=== PATIENT | female | born 1945 | race Caucasian/White ===

== ENCOUNTER → 2016-06-30 | Outpatient (CLI) | payer MEDICARE, OTHER ==
[~2016-06-30] MED LIST: AMOX875T PO; ASPI1TAB PO; CALCTAB68 PO; CENTTAB47 PO; GLUC15002 PO; IBUP600T26 PO; KETO2CR EXT; LEVO50TA45 PO; OMEP40CA2 PO; OPCOSOL OU; PROBCAP4 PO
[2016-06-30 18:10] LABS: BASO % 0.8 % (0.0-1.0); EOS # 0.1 K/mm3 (0.0-0.50); LARGE UNSTAINED CELL # 0.1 K/mm3 (0.0-0.4); LARGE UNSTAINED CELL % 2.9 % (0.0-4.0); LYMPH # 1.1 K/mm3 (1.5-4.5); LYMPH % 23.2 % (24.0-44.0); MEAN CORPUSCULAR HEMOGLOBIN 32.3 pg (27.0-33.0); MEAN CORPUSCULAR HGB CONC 32.9 g/dl (32.0-36.5); MEAN CORPUSCULAR VOLUME 98.2 fl (80.0-96.0); MONO # 0.3 K/mm3 (0.0-0.8); MONO % 7.5 % (0.0-5.0); NEUTROPHILS # 2.6 K/mm3 (1.8-7.7); NEUTROPHILS % 63.6 % (36.0-66.0); PLATELET COUNT, AUTOMATED 199 k/mm3 (150-450); RED CELL DISTRIBUTION WIDTH 13.9 % (11.5-14.5); WHITE BLOOD COUNT 4.1 K/mm3 (4.0-10.0)
[2016-06-30 18:59] LABS: ALBUMIN 3.6 GM/DL (3.2-5.2); ALBUMIN/GLOBULIN RATIO 1.09 (1.00-1.93); ALKALINE PHOSPHATASE 98 U/L (45-117); ALT/SGPT 32 U/L (12-78); ANION GAP 10 MEQ/L (8-16); AST/SGOT 32 U/L (15-37); BILIRUBIN,TOTAL 0.7 MG/DL (0.2-1.0); BLOOD UREA NITROGEN 19 MG/DL (7-18); CALCIUM LEVEL 8.5 MG/DL (8.8-10.2); CARBON DIOXIDE LEVEL 29 MEQ/L (21-32); CHLORIDE LEVEL 103 MEQ/L (98-107); CHOLESTEROL LEVEL 207 MG/DL (<200); GLOMERULAR FILTRATION RATE > 60.0 (>39); GLUCOSE, FASTING 92 MG/DL (83-110); POTASSIUM SERUM 4.3 MEQ/L (3.5-5.1); SODIUM LEVEL 142 MEQ/L (136-145); TOTAL PROTEIN 6.9 GM/DL (6.4-8.2); TRIGLYCERIDES LEVEL 64 MG/DL (<150)
== END ==
LOC: M WUC 10:49
PROVIDERS: ATTEND Family Medicine
DX: D72.819 Decreased white blood cell count, unspecified (principal); E55.9 Vitamin D deficiency, unspecified; R73.01 Impaired fasting glucose; E78.2 Mixed hyperlipidemia

== ENCOUNTER → 2016-07-27 | Outpatient (CLI) | payer MEDICARE, OTHER ==
--- NOTE | 2016-07-27 13:44 | REP ---
CHEST X-RAY: Two views. HISTORY: Pneumonia. Comparison chest x-ray June 08, 2016. FINDINGS: There are granulomatous calcific residuals in the right lung and right hilus unchanged. Right hemidiaphragm is slightly elevated also unchanged. The lungs are otherwise well inflated and clear. The pleural angles are sharp. Heart is not enlarged. No significant bony abnormality is seen. IMPRESSION: No active disease. Signed by Edson Smith MD 07/27/2016 03:17 P
== END ==
LOC: M WUC 10:24
PROVIDERS: ATTEND Physician Assistant Medical
DX: J18.9 Pneumonia, unspecified organism (principal)
CPT/HCPCS: 71020; G0463

== ENCOUNTER → 2016-07-29 | Outpatient (REF) | payer MEDICARE, OTHER | LOC: M SFHCPLAZ 11:30 | PROVIDERS: ATTEND Physician Assistant Medical | DX: J40 Bronchitis, not specified as acute or chronic (principal) ==

== ENCOUNTER → 2016-10-03 | Outpatient (REF) | payer MEDICARE, OTHER | LOC: M LAB REF 13:26 | PROVIDERS: ATTEND Physician Assistant Medical | DX: J40 Bronchitis, not specified as acute or chronic (principal) ==

== ENCOUNTER → 2016-10-06 | Outpatient (CLI) | payer MEDICARE, OTHER ==
[2016-10-06 14:55] LABS: MEAN CORPUSCULAR HEMOGLOBIN 31.6 pg (27.0-33.0); MEAN CORPUSCULAR HGB CONC 33.1 g/dl (32.0-36.5); MEAN CORPUSCULAR VOLUME 95.6 fl (80.0-96.0); RED CELL DISTRIBUTION WIDTH 13.1 % (11.5-14.5); WHITE BLOOD COUNT 3.4 K/mm3 (4.0-10.0)
[2016-10-06 15:10] LABS: ALBUMIN 3.7 GM/DL (3.2-5.2); ALBUMIN/GLOBULIN RATIO 1.09 (1.00-1.93); ALKALINE PHOSPHATASE 103 U/L (45-117); ALT/SGPT 26 U/L (12-78); ANION GAP 8 MEQ/L (8-16); AST/SGOT 20 U/L (15-37); BILIRUBIN,TOTAL 0.8 MG/DL (0.2-1.0); BLOOD UREA NITROGEN 18 MG/DL (7-18); CALCIUM LEVEL 9.2 MG/DL (8.8-10.2); CARBON DIOXIDE LEVEL 29 MEQ/L (21-32); CHLORIDE LEVEL 105 MEQ/L (98-107); CREATININE FOR GFR 0.99 MG/DL (0.55-1.02); GLOMERULAR FILTRATION RATE 58.5 (>39); GLUCOSE, FASTING 97 MG/DL (83-110); POTASSIUM SERUM 4.7 MEQ/L (3.5-5.1); SODIUM LEVEL 142 MEQ/L (136-145); TOTAL PROTEIN 7.1 GM/DL (6.4-8.2)
[2016-10-07 11:36] LABS: ALBUMIN 4.14 GM/DL (3.29-5.55); ALBUMIN % 58.3 % (55.8-66.1); GAMMA GLOBULIN % 18.5 % (11.1-18.8)
== END ==
LOC: M WUC 10:14
PROVIDERS: ATTEND Family Medicine
DX: D47.2 Monoclonal gammopathy (principal); R73.01 Impaired fasting glucose

== ENCOUNTER → 2016-10-09 | Outpatient (CLI) | payer MEDICARE, OTHER ==
[~2016-10-09] MED LIST changes: +ISOVUE-370 76% 100ML VIAL (Q9967) As Ordered ONE
--- NOTE | 2016-10-09 09:06 | REP ---
CT CHEST WITH CONTRAST: 10/09/2016. Clinical history: Bronchitis, cough. Possible bronchiectasis. Comparison: CT 06/14/2007, chest x-ray 07/27/2016. Technique. The patient received a bolus of 75 ml Isovue 370, scanning through the chest with coronal and sagittal reconstructions. Findings: The lung freitas are well inflated. There is very minimal linear subsegmental atelectasis in the inferior lingular segment adjacent to the left heart border and its epicardial fat pad anterior inferior left chest. Lungs are well inflated. In the left lower lobe, there are a few subsegmental bronchi and segmental bronchi with the bronchial segments equal in size to the adjacent pulmonary artery segments that may reflect some cylindrical bronchiectasis. These are scattered. No saccular bronchiectasis. There is no pulmonary nodule, pleural thickening, calcified pleural plaque, acute infiltrate or parenchymal mass. No pneumothorax or pneumomediastinum. Heart is not enlarged and no pericardial thickening or effusion. The aorta is without aneurysm or dissection. The main, right and left pulmonary arteries in the mediastinum are without filling defects. There are a few calcified nodes in the subcarinal, AP window and right hilar region. These are unchanged. No pathologic sized mediastinal or hilar mass. The axillary and supraclavicular regions are without mass. In the upper abdomen, visualized portions of the kidneys were unremarkable. Adrenal glands normal. Pancreas intact. Gallbladder shows no calcified stone or mass. There is no splenomegaly with multiple calcified stone. Small granulomas disease noted. No definite hiatal hernia. The liver is not enlarged and shows no focal abnormality. Bone windows show the sternum, manubrium, medial clavicles, glenohumeral joints, humeral heads, scapula, ribs and thoracic spine without acute finding. There are marginal osteophytes and some degenerative disc changes at multiple thoracic endplates. Impression: 1. There is some very mild cervical bronchiectasis scattered in the lung freitas without consolidation, atelectasis, pleural effusion, pleural based plaque, mass or pulmonary nodules. 2. No cardiomegaly, pericardial thickening or effusion. 3. The aorta without aneurysm or dissection. Central pulmonary arteries in the mediastinum without filling defect. No adenopathy or mass in the mediastinum. Old granulomatous disease. Signed by Ever Osorio MD 10/09/2016 02:59 P
== END ==
LOC: M RAD 07:37
PROVIDERS: ATTEND Physician Assistant Medical
DX: J40 Bronchitis, not specified as acute or chronic (principal); J47.9 Bronchiectasis, uncomplicated
CPT/HCPCS: 71260; Q9967

== ENCOUNTER → 2016-12-21 | Outpatient (CLI) | payer MEDICARE, OTHER ==
[~2016-12-21] MED LIST changes: +ALBU17IN2 INH; +CALC600T57 PO; +GLUC1CAP10 PO; +IBUP-1022 PO; -IBUP600T26 PO; -ISOVUE-370 76% 100ML VIAL (Q9967) As Ordered ONE; +KETO2AER2 EX; +NABU750T PO; +NORCOTAB PO; +NYST10CR EXT; +VITA200015 PO
--- NOTE | 2016-12-21 16:57 | REP ---
Digital diagnostic bilateral mammography with CAD: History: Screening study. Positively history of breast carcinoma. Comparison mammography is reviewed from December 20, 2015, December 19, 2014, and December 18, 2013. December 16, 2012 prior mammography is also reviewed. Mammographic findings: There is a possible developing density at approximate 12 o'clock in the right breast which merits further evaluation. This is seen with confidence on the CC view where there appears to be some spiculation. This is less confidently identified on the MLO view. It is approximately 14 mm in greatest diameter. The remainder of the right breast and the entirety of the left breast are otherwise unremarkable and unchanged. There is an upper outer quadrant lymph node on the left which is unchanged. Impression: BIRADS category zero incomplete breast imaging. Possible developing density 12 o'clock right breast. Diagnostic right breast mammography and focused right breast sonography recommended. This mammogram was interpreted with the aid of an FDA-approved computer-aided detection system. The patient states she/he had a clinical breast exam in November 2016 . The patient letter being requested is m# [id number]. Signed by Edson Smith MD 12/21/2016 04:49 P
== END ==
LOC: M WHC 12:44
PROVIDERS: ATTEND Family Medicine
DX: Z01.419 Encounter for gynecological examination (general) (routine) without abnormal findings (principal); Z12.31 Encounter for screening mammogram for malignant neoplasm of breast; R92.8 Other abnormal and inconclusive findings on diagnostic imaging of breast; Z12.12 Encounter for screening for malignant neoplasm of rectum
CPT/HCPCS: 82270; G0101; G0202

== ENCOUNTER → 2016-12-25 | Outpatient (CLI) | payer MEDICARE, OTHER ==
--- NOTE | 2016-12-25 17:36 | REP ---
Digital diagnostic unilateral right breast mammography with CAD and focused right breast sonography: History: Screening mammography December 21, 2016 is BIRADS category 0 incomplete for a possible developing density at approximately 12 o'clock. Diagnostic imaging was recommended. Mammographic findings: Magnified focal spot compression CC, MLO and true ML views of the right breast were obtained. A somewhat spiculated nodular area is again seen at 12 o'clock in the right breast confirming the screening mammographic impression. This has incompletely defined margins. It is considered mammographically suspicious. Sonographic findings: The right breast is examined sonographically from 11 o'clock to 1 o'clock. At 12 o'clock, a hypoechoic mass is seen with posterior acoustic shadowing measuring 0.9 x 0.7 x 1.1 cm. There is arterial Doppler flow internally. The mass is 5.1 cm from the nipple. Impression: BIRADS category 5 highly suspicious right breast imaging. Ultrasound-guided needle biopsy with marker clip placement recommended. ACR 5 BI-RADS/ACR category 5 mammogram. Highly suggestive of malignancy - appropriate action should be taken. Requires biopsy or surgical treatment. This mammogram was interpreted with the aid of an FDA-approved computer-aided detection system. The patient states she/he had a clinical breast exam in November 2016. The patient letter being requested is M4. Signed by Edson Smith MD 12/30/2016 10:08 A
== END ==
LOC: M RAD 13:23
PROVIDERS: ATTEND Family Medicine
DX: R92.8 Other abnormal and inconclusive findings on diagnostic imaging of breast (principal)
CPT/HCPCS: 76642; G0206

== ENCOUNTER → 2017-01-13 | Outpatient (CLI) | payer MEDICARE, OTHER ==
[~2017-01-13] MED LIST changes: +LIDOCAINE 1% MDV 20ML VIAL As Ordered ONE
--- NOTE | 2017-01-13 13:32 | REP ---
DIGITAL DIAGNOSTIC UNILATERAL RIGHT BREAST MAMMOGRAPHY WITH CAD: TWO VIEWS. HISTORY: Marker clip placement views. Patient status post ultrasound-guided needle biopsy procedure. Comparison mammography, December 25, 2016, December 21, 2016, and December 20, 2015. FINDINGS: CC and true MLO views of the right breast demonstrate that the marker clip is in good position at the level of the biopsy target spiculated density in the 12-o'clock position in the right breast. No hematoma is identified. IMPRESSION: Marker clip in good position. Signed by Edson Smith MD 01/13/2017 02:31 P
--- NOTE | 2017-01-13 16:42 | REP ---
ULTRASOUND GUIDED RIGHT BREAST BIOPSY: The procedure was performed under the direct supervision of Dr. Smith. The patient has a history of a hypoechoic mass in the 12 o'clock position of the left breast measuring 0.9 x 0.7 x 1.1 cm on a previous ultrasound dated 12/25/2016. The risks and benefits of the procedure were explained to the patient and informed consent was obtained. The right breast mass was localized using ultrasound guidance. The skin was prepped and draped in a sterile fashion. 1% Lidocaine was used as a local anesthetic. Using ultrasound guidance a 13-gauge suction assisted Mammotome needle was inserted and 6 core biopsy samples were obtained. A marker clip was placed at the biopsy site. The patient tolerated the procedure well and there were no immediate complications. After the appropriate amount of monitored convalescence the patient was discharged from the department. Reviewed by MARYCHUY Escalera 01/14/2017 04:24 PEdited and Signed by Edson Smith MD 01/14/2017 04:43 P
== END ==
LOC: M RADPRO 09:41
PROVIDERS: ATTEND Surgery
DX: C50.919 Malignant neoplasm of unspecified site of unspecified female breast (principal); Z88.5 Allergy status to narcotic agent; Z79.82 Long term (current) use of aspirin; Z79.899 Other long term (current) drug therapy
CPT/HCPCS: 19083; 88305; G0206

== ENCOUNTER 2017-01-28 10:21 | Day surgery (SDC) | payer MEDICARE, OTHER ==
[~2017-01-28] VITALS: Ht 158.8 cm; Wt 107.0 kg
[~2017-01-28 10:21] MED LIST changes: -LIDOCAINE 1% MDV 20ML VIAL As Ordered ONE; -NORCOTAB PO
[2017-01-28] MEDS ORDERED: LR 1,000 ML IV SCH ×3 (10:45→18:30)
[2017-01-28] MEDS ORDERED: LIDOCAINE 5% (LIDODERM) PATCH As Ordered ONE (11:19)
[2017-01-28] MEDS ORDERED: LIDOCAINE 5% (LIDODERM) PATCH TD ONE (12:00)
[2017-01-28] MEDS ORDERED: LIDOCAINE 1% MDV 20ML VIAL As Ordered ONE (12:20)
[2017-01-28] MEDS ORDERED: fentaNYL 100 MCG/2 ML INJECTION (J3010) As Ordered ONE ×2 (13:45→18:58)
[2017-01-28] MEDS ORDERED: PROPOFOL 200 MG/20 ML VIAL As Ordered ONE (13:45)
[2017-01-28] MEDS ORDERED: LIDOCAINE 2% INJ 100 MG/5 ML SDV (FOR ANES.) As Ordered ONE (13:45)
[2017-01-28] MEDS ORDERED: MIDAZOLAM INJ 2 MG/2 ML VIAL (J2250) As Ordered ONE (13:45)
[2017-01-28] MEDS ORDERED: ONDANSETRON 4MG/2ML VIAL (J2405) As Ordered ONE ×2 (13:45→15:44)
[2017-01-28] MEDS ORDERED: METHYLENE BLUE 0.5% (5MG/ML) 10 ML AMP (PROVAYBLUE)(Q9968 PER 1MG) As Ordered ONE (14:30)
[2017-01-28] MEDS ORDERED: ePHEDrine SULFATE 25 MG/5 ML(5MG/ML) SYRINGE As Ordered ONE (15:44)
[2017-01-28] MEDS ORDERED: METOCLOPRAMIDE INJ 10MG/2ML VIAL (J2765) As Ordered ONE (15:44)
[2017-01-28] MEDS ORDERED: BUPIVACAINE HCL 0.25% 30 ML VIAL As Ordered ONE (17:29)
[2017-01-28] MEDS ORDERED: BUPIVACAINE HCL 0.5% 30 ML VIAL As Ordered ONE (17:29)
--- NOTE | 2017-01-28 17:53 | REP ---
RIGHT BREAST LOCALIZATION: The procedure was performed under the direct supervision of Dr. Osorio. The patient has a history of a hypoechoic mass in the 12 o'clock position of the right breast measuring 0.9 x 0.7 x 1.1 cm on a previous ultrasound dated 12/25/2016. The patient had an ultrasound guided right breast biopsy performed on 01/13/2017. A marker clip was placed at the biopsy site. The risks and benefits of the procedure were explained to the patient and informed consent was obtained. A cranial caudal approach was utilized. The marker clip was localized using mammographic guidance. The skin was prepped and draped in a sterile fashion. 1% Xylocaine was used as a local anesthetic. A 7.5 cm Alder needle wire system was inserted. Followup mammographic images demonstrate good needle placement. The patient tolerated the procedure well and there were no immediate complications. Reviewed by MARYCHUY Escalera 01/29/2017 03:29 PEdited and Signed by Ever Osorio MD 01/29/2017 10:09 P
--- NOTE | 2017-01-28 18:29 | ECGEPIP ---
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 No significant change from 12/24/14 Electronically Signed On 01-28-2017 18:29:18 EDT by Kevin Tang
[2017-01-28] MEDS ORDERED: ACETAMINOPHEN TAB 650MG DOSE (2X325MG) PO PRN (18:30)
[2017-01-28] MEDS ORDERED: fentaNYL 100 MCG/2 ML INJECTION (J3010) IV PRN (18:30)
[2017-01-28] MEDS ORDERED: NORCO, ANEXSIA 5/325MG TABLET (HYDROcodone/ACETAMINOPHEN) PO PRN (18:30)
[2017-01-28] MEDS ORDERED: ONDANSETRON 4MG/2ML VIAL (J2405) IV PRN (18:30)
--- NOTE | 2017-01-28 18:48 | REP ---
RIGHT BREAST LYMPHOSCINTIGRAPHY: The procedure was performed under the direct supervision of Dr. Osorio. The images were reviewed with Dr. Osorio. The risks and benefits of the procedure were explained to the patient and informed was obtained. Using topical anesthetic and sterile technique 1.013 millicuries of Technetium 99 filtered sulfur colloid was injected subdermally in 8 fractioned periareolar injections. Images obtained 1 hour after injection show tracer uptake in the upper inner quadrant of the right breast. There is no appreciable uptake seen in the axillary region. IMPRESSION: Right breast lymphoscintigraphy. There is tracer uptake seen in upper inner quadrant of the right breast. There is no appreciable uptake seen in the axillary region. Reviewed by MARYCHUY Escalera 01/29/2017 03:32 PEdited and Signed by Ever Osorio MD 01/29/2017 10:09 P
[2017-01-28] MEDS ORDERED: NORCOTAB PO (18:49)
[2017-01-28 20:20] VITALS: BP 135/61
--- NOTE | 2017-01-29 08:18 | REP ---
Right breast specimen radiograph: 01/28/2017. Two images of the right breast biopsy specimen from needle localization excisional biopsy are reviewed. Hook wire is present on the image as is the stereotactic clip from last month's needle core biopsy. Tissue occludes the targeted lesion in its entirety. There are some coarse benign calcifications and arterial calcifications present separate from the lesion. Impression: 1. Status post excisional biopsy with the specimen radiograph demonstrating the targeted lesion and adjacent core biopsy localization clip present in the specimen. Pathologic analysis pending. Signed by Ever Osorio MD 01/29/2017 08:10 A
--- NOTE | 2017-02-01 11:58 | RO ---
DATE OF PROCEDURE: 01/28/2017 PREOPERATIVE DIAGNOSIS: Infiltrating ductal carcinoma of right breast. POSTOPERATIVE DIAGNOSIS: Infiltrating ductal carcinoma of right breast. PROCEDURE PERFORMED: 1. Right breast/axilla sentinel lymph node biopsy. 2. Right partial mastectomy with needle localization. 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 INDICATIONS FOR PROCEDURE: The patient is a 71-year-old who had undergone a mammogram and was found to have a density in the superior mid aspect of the right breast. Ultrasound showed a small solid-appearing nodule in this area and an ultrasound-guided biopsy revealed infiltrating ductal carcinoma. The patient is now for a sentinel lymph node biopsy as well as a right partial mastectomy (lumpectomy). OPERATIVE PROCEDURE: The patient underwent lymphoscintigraphy in the x-ray department. She also had a localizing wire placed into the area of her cancer utilizing ultrasound techniques. She was then moved to the operating room. The patient was placed under general endotracheal anesthesia. After alcohol skin prep, several aliquots of methylene blue were injected into the breast, into the subcutaneous tissues and also into the area of her primary tumor. A total of approximately 4-5 mL of the methylene blue solution was injected. The Neoprobe was used to inspect the right axilla and a site of gamma uptake was identified. The patients right breast, chest wall, axilla and right upper extremity were then prepped and draped in a sterile fashion. Initial attention was turned to the sentinel lymph node biopsy. With the breast retracted to the left, the axilla was inspected and the site of maximum gamma counts was marked with a skin marker. An approximately 3 to 3-1/2 cm transverse skin incision was made. This was deepened through the subcutaneous tissues using the cautery. The axillary fascia was opened and the dissection was carried deeper guided by the Neoprobe. With careful dissection, using a combination of blunt, sharp, and cautery dissection, a small node approximately a centimeter in diameter was identified and this was dissected with some attached fibrofatty tissue. Examination with the Neoprobe gave a 10-second count of 2348. This was labeled sentinel node #1. Reinspection with the Neoprobe identified another area of marked increased gamma counts near the area of the first node. Additional dissection was performed and a second piece of fibrofatty tissue containing a small node was identified. 10-second gamma count was 8655. This was labeled sentinel node #2 and these were both sent for frozen section. The wound was inspected and hemostasis was excellent. A closure of the axillary fascia was performed with two simple sutures of #3-0 chromic. The subcutaneous tissues were approximated and the skin edges were closed with a running subcuticular #4-0 Vicryl. At about this point, the pathologist contacted me by telephone and indicated that the nodes did not show any obvious malignancy. Attention was then turned to the partial mastectomy. The guidewire was identified entering the upper midportion of the right breast and directed inferiorly toward the areola. The wire entered the breast perhaps 5-6 cm above the edge of the areola. I made a slightly curved transverse incision, perhaps 6 cm in length, about 2 cm inferior to the point of entry of the guidewire. This was deepened into the subcutaneous tissues. The skin and subcutaneous tissues were elevated off of the underlying breast superiorly up to slightly above the entry point of the guidewire. The dissection was then carried inferiorly to the edge of the areola and then slightly inferior to this. Then the tissues inferiorly were divided at about the edge of the areola transversely down toward the pectoral fascia. The tip of the guidewire was identified at the inferior edge of this tissue. Then using medial and lateral dissection, a broad block of breast tissue was excised extending up toward the needle entry point at which point the superior part of the dissection was completed and this block of tissue was removed. This measured approximately 9 cm in length x 7 cm in width x 4 cm in thickness. The portion of tissue excised was somewhat larger as the nodule was not clearly palpable and I felt it was best to avoid getting into the cancer if avoidable. This piece of tissue was then marked with the Vector margin marker system. A specimen mammogram was obtained using the [facility] ([place]) device. The specimen appeared to contain the nodule along the course of the guidewire passing through the specimen. The specimen was then sent for permanent pathology. The wound was inspected for hemostasis which was found to be excellent. I elevated the superior and lateral aspects of the breast off of the underlying pectoral muscle to allow the breast tissue to be approximated. The breast tissue was then approximated with interrupted simple sutures of #2-0 Vicryl. The skin was elevated slightly further inferiorly to allow a more natural appearance. Subcutaneous tissues were closed with buried Vicryl and chromic and the skin edges were approximated with a running subcuticular suture of #4-0 Vicryl and Steri-Strips. Steri-Strips were applied to the axillary incision as well. Light dressings were applied. A bulky bandage was applied over the breast and this was positioned to try to contour the breast tissue slightly. This was all held in place with tape. The patient tolerated the procedure well without apparent complication. She was awakened in the operating room, extubated and moved to the recovery room in stable condition. ELIDA
== END 2017-01-28 20:37 | disposition home or self-care (01) ==
LOC: M SDC 10:21
PROVIDERS: ATTEND Surgery
DX: D05.11 Intraductal carcinoma in situ of right breast (principal); M17.0 Bilateral primary osteoarthritis of knee; K21.9 Gastro-esophageal reflux disease without esophagitis; E66.01 Morbid (severe) obesity due to excess calories; E78.5 Hyperlipidemia, unspecified; R73.01 Impaired fasting glucose; J47.9 Bronchiectasis, uncomplicated; D47.2 Monoclonal gammopathy; M47.812 Spondylosis without myelopathy or radiculopathy, cervical region; M51.36 Other intervertebral disc degeneration, lumbar region; M50.022 Cervical disc disorder at C5-C6 level with myelopathy; M48.00 Spinal stenosis, site unspecified; Z87.442 Personal history of urinary calculi; E03.9 Hypothyroidism, unspecified; R06.83 Snoring; Z79.899 Other long term (current) drug therapy; Z79.82 Long term (current) use of aspirin; Z88.5 Allergy status to narcotic agent
CPT/HCPCS: 19301; 38525; 76098; 78195; 88305; 88331; 93005; A9541; J2250; J2405; J2765; J3010; Q9968

== ENCOUNTER → 2017-03-23 | Outpatient (CLI) | payer MEDICARE, OTHER ==
[~2017-03-23] MED LIST changes: +NORCOTAB PO
--- NOTE | 2017-03-26 08:20 | RADONC ---
RADIATION ONCOLOGY CONSULTATION NOTE DATE: 03/23/2017 CHART NUMBER: [id number]. DIAGNOSIS: Right breast cancer. STAGE: IA, [id number]. ECOG PERFORMANCE STATUS: Zero. CONSULTATION NOTE: Mrs. Jaimes is a very pleasant, 72-year-old white female with the diagnosis of a stage IA, [id number], well-differentiated infiltrating ductal carcinoma of the right breast who is presenting to us status post lumpectomy and sentinel lymph node biopsy for consideration of postoperative radiation therapy for conservative breast management. HISTORY OF PRESENT ILLNESS: The patient was in the usual state of health until routine mammogram was done on 12/22/2015, which revealed a possible developing density in the 12-o'clock position of the right breast. Subsequent ultrasound showed a highly suspicious area in the 12-o'clock position. On 01/29/2017, the patient underwent lumpectomy and sentinel lymph node biopsy. Pathology revealed a 1.5 cm well-differentiated invasive ductal carcinoma of the right breast. There was no lymph vascular invasion. All surgical margins were negative with the closest margin measuring 1.1 cm away. The tumor was estrogen receptor and progesterone receptor strongly positive and HER2/nikki negative. Two sentinel lymph nodes were sampled and were negative for malignancy. Oncotype testing was done and the recurrent score result was 9 for a low risk. The patient is now presenting to us for discussion of external beam radiation therapy as a therapeutic option for conservative breast management. PAST MEDICAL HISTORY: The patient's past medical history is positive for urinary infections, arthritis, bronchitis and cataracts. She has hypothyroidism. ALLERGIES: The patient is allergic to CODEINE and BAND-AID TAPE. SOCIAL HISTORY: The patient does not smoke cigarettes. She drinks alcohol socially. FAMILY HISTORY: The patient's family history is positive for a maternal grandmother with breast cancer and a paternal grandmother with colon cancer. REVIEW OF SYSTEMS: The patient's review of systems is positive for some shortness of breath and some decreased energy, but is otherwise noncontributory. Denies nausea, vomiting, fevers, chills, night sweats, diplopia, headaches, anxiety or depression, anorexia, weight loss, visual disturbances, chest pain, urinary or bowel difficulties, bone pain, or neurological problems. PHYSICAL EXAMINATION: The patient is a well-developed, well-nourished, 72-year-old white female in no acute distress. HEENT exam is normocephalic, atraumatic. Extraocular movements are intact. There is no palpable cervical, supraclavicular, infraclavicular, axillary, or inguinal lymphadenopathy present. Lungs are clear to auscultation and percussion. Heart has a regular rate and rhythm. Abdomen is benign with no hepatosplenomegaly, masses, or tenderness. Breast examination reveals no masses or discharge bilaterally. Skeletal examination reveals no tenderness to pressure or percussion of the bony skeleton. Extremities reveal no clubbing, cyanosis, or edema. Neurologic exam is grossly intact, as is the remainder of the physical examination. ASSESSMENT: Clearly the patient is a candidate for external beam radiation therapy and I have so informed her. I have discussed with the patient in detail the potential benefits as well as possible acute and chronic sequelae of external beam radiation therapy. We discussed logistics of treatment planning, simulation subsequent fractionated daily radiation treatments. I have scheduled the patient for the next available simulation slot and radiation treatments will begin subsequently. She is scheduled to see her medical oncologist on to discuss systemic therapy. At this time, I do not believe that Dr. Saldaña will be recommending systemic therapy, but we will await initiation of radiation until that final decision has been made. Of course, I will defer all systemic therapy decisions to the expertise of Dr. Saldaña in whom I have great thang. cc: Dr. Tj Avila cc: Abeba Saldaña MD, FACP Wiliam Sevilla MD
--- NOTE | 2017-04-28 07:56 | RADONC ---
RADIATION ONCOLOGY PROGRESS NOTE DATE: 04/26/2017 CHART NUMBER: [id number] Ms. Jaimes is presently at a dose of 2160 cGy to her right breast and is tolerating treatments quite well at this point with no complaints related to her radiation therapy. She is having no breast or bone pain. The patient's review of systems is noncontributory. She denies nausea, vomiting, fevers, chills, night sweats, diplopia, headaches, anxiety or depression, anorexia, weight loss, visual disturbances, chest pain, urinary or bowel difficulties, bone pain, or neurological problems. PHYSICAL EXAMINATION: The patient's skin is in good condition with no evidence of moist or dry desquamation. The remainder of physical exam remains unchanged. Ms. Jaimes is tolerating treatments quite well and radiation will continue as scheduled.
== END ==
LOC: M ONCR 09:00
PROVIDERS: ATTEND Radiology Radiation Oncology
DX: C50.911 Malignant neoplasm of unspecified site of right female breast (principal)

== ENCOUNTER → 2017-03-29 | Outpatient (CLI) | payer MEDICARE, OTHER ==
[2017-03-29 12:07] LABS: MEAN CORPUSCULAR HEMOGLOBIN 32.1 pg (27.0-33.0); MEAN CORPUSCULAR HGB CONC 33.4 g/dl (32.0-36.5); MEAN CORPUSCULAR VOLUME 96.1 fl (80.0-96.0); RED CELL DISTRIBUTION WIDTH 13.2 % (11.5-14.5); WHITE BLOOD COUNT 3.5 10^3/uL (4.0-10.0)
[2017-03-29 13:12] LABS: CHOLESTEROL LEVEL 217 MG/DL (<200); FREE T4 1.71 NG/DL (0.76-1.46); TRIGLYCERIDES LEVEL 61 MG/DL (<150)
[2017-03-29 13:17] LABS: EOSINOPHILS 1 % (0-5)
[2017-04-01 00:07] LABS: FREE KAPPA LIGHT CHAINS SERUM 17.7 mg/L (3.3-19.4); FREE LAMBDA LIGHT CHAINS SERUM 13.8 mg/L (5.7-26.3); KAPPA/LAMBDA RATIO SERUM 1.28 (0.26-1.65)
== END ==
LOC: M LAB 11:21
PROVIDERS: ATTEND Family Medicine
DX: D72.819 Decreased white blood cell count, unspecified (principal); E78.2 Mixed hyperlipidemia; D47.2 Monoclonal gammopathy; E03.9 Hypothyroidism, unspecified; R73.01 Impaired fasting glucose

== ENCOUNTER → 2017-03-29 | Outpatient (CLI) | payer MEDICARE, OTHER | LOC: M RAD 10:19 | PROVIDERS: ATTEND Radiology Radiation Oncology | DX: C50.911 Malignant neoplasm of unspecified site of right female breast (principal) ==

== ENCOUNTER 2017-04-28 11:34 | Outpatient (RCR) | payer MEDICARE, OTHER ==
--- NOTE | 2017-05-05 06:39 | RADONC ---
RADIATION ONCOLOGY PROGRESS NOTE DATE: 05/03/2017 CHART NUMBER: [id number] Ms. Jaimes is presently at a dose of 3060 cGy to her right breast and is tolerating treatments quite well at this point with no complaints related to her radiation therapy. She is having no breast or bone pain. REVIEW OF SYSTEMS: The patient's review of systems is noncontributory. Denies nausea, vomiting, fevers, chills, night sweats, diplopia, headaches, anxiety or depression, anorexia, weight loss, visual disturbances, chest pain, urinary or bowel difficulties, bone pain, or neurological problems. PHYSICAL EXAMINATION: The patient's skin is in good condition with no evidence of moist or dry desquamation. The remainder of her physical exam remains unchanged. Ms. Jaimes is tolerating treatments quite well and radiation will continue as scheduled.
--- NOTE | 2017-05-10 09:19 | RADONC ---
RADIATION ONCOLOGY PROGRESS NOTE DATE: 05/10/2017 Ms. Jaimes is presently at a dose of 3960 cGy to her right breast and is tolerating treatments quite well at this point with no significant complaints related to her radiation therapy other than some tenderness in the axillary region. The patient's review of systems is positive for some skin tenderness as well as some swelling in the axillary area. It is otherwise noncontributory. She denies nausea, vomiting, fevers, chills, night sweats, diplopia, headaches, anxiety or depression, anorexia, weight loss, visual disturbances, chest pain, urinary or bowel difficulties, bone pain, or neurological problems. PHYSICAL EXAMINATION: The patient's skin overall is in good condition with no evidence of moist or dry desquamation. There is erythema and tanning present. This is more so in the inframammary and axillary areas. The patient's physical exam is otherwise unchanged. Ms. Jaimes is tolerating treatments quite well and radiation will continue as scheduled.
--- NOTE | 2017-05-12 09:00 | RADONC ---
RADIATION ONCOLOGY SIMULATION NOTE DATE: 05/12/2017 CHART NUMBER: [id number] Ms. Jaimes was taken to the linear accelerator today for clinical setup of her right breast electron beam boost field. Setup was accomplished without difficulty or discomfort. Radiation treatment planning is underway and radiation treatments will begin subsequently. An immobilization device was created and will be used throughout the course of treatment. I was physically present throughout the course of electron setup simulation.
--- NOTE | 2017-05-17 15:56 | RADONC ---
RADIATION ONCOLOGY PROGRESS NOTE DATE: 05/17/2017 CHART NUMBER: [id number] Ms. Jaimes is presently at a dose of 4680 cGy to her right breast and is tolerating treatments quite well at this point with no significant complaints related to her radiation therapy other than tenderness in the axillary region and around the nipple. REVIEW OF SYSTEMS: The patient's review of systems is positive for tenderness in those areas but is otherwise noncontributory. She denies nausea, vomiting, fevers, chills, night sweats, diplopia, headaches, anxiety or depression, anorexia, weight loss, visual disturbances, chest pain, urinary or bowel difficulties, bone pain, or neurological problems. PHYSICAL EXAMINATION: The patient's skin shows erythema and tanning present, more so in the axillary region. There is no evidence of moist or dry desquamation. The remainder of her physical exam remains unchanged. Ms. Jaimes is tolerating treatments quite well and radiation will continue as scheduled.
[2017-05-24] MEDS ORDERED: SILV40CR EXT (09:07)
--- NOTE | 2017-05-24 09:45 | RADONC ---
RADIATION ONCOLOGY PROGRESS NOTE DATE: 05/24/2017 CHART NUMBER: [id number] Ms. Jaimes is presently at a dose of 5260 cGy to her right breast primary site boost and is tolerating treatments quite well at this point. She is complaining of pain in the inframammary area. REVIEW OF SYSTEMS: The patient's review of systems is positive for inframammary discomfort but is otherwise noncontributory. Denies nausea, vomiting, fevers, chills, night sweats, diplopia, headaches, anxiety or depression, anorexia, weight loss, visual disturbances, chest pain, urinary or bowel difficulties, bone pain, or neurological problems. PHYSICAL EXAMINATION: The patient's skin in the inframammary region shows some moist desquamation. The remainder of her physical exam remains unchanged. I have sent in a prescription for Silvadene for the skin in the inframammary region which was last treated on May 18, last Wednesday. In the meantime, the area presently being treated is free of any significant issues and radiation will continue as scheduled.
== END 2017-05-27 ==
LOC: M ONCR 11:34
PROVIDERS: ATTEND Radiology Radiation Oncology
DX: C50.811 Malignant neoplasm of overlapping sites of right female breast (principal)

== ENCOUNTER 2017-05-28 11:06 | Outpatient (RCR) | payer MEDICARE, OTHER | END 2017-06-27 | LOC: M ONCR 11:06 | DX: C50.811 Malignant neoplasm of overlapping sites of right female breast (principal) | CPT/HCPCS: 77412 ==

== ENCOUNTER → 2017-06-29 | Outpatient (CLI) | payer MEDICARE, OTHER | LOC: M RAD 13:20 | DX: R92.1 Mammographic calcification found on diagnostic imaging of breast (principal) | CPT/HCPCS: 77065 ==

== ENCOUNTER → 2017-07-07 | Outpatient (CLI) | payer MEDICARE, OTHER | LOC: M ONCR 11:05 | DX: Z08 Encounter for follow-up examination after completed treatment for malignant neoplasm (principal); Z85.3 Personal history of malignant neoplasm of breast | CPT/HCPCS: G0463 ==

== ENCOUNTER → 2017-08-17 | Outpatient (CLI) | payer MEDICARE, OTHER ==
[2017-08-17 17:33] LABS: BASO % 0.3 % (0.0-1.0); EOS % 1.3 % (0.0-3.0); HEMOGLOBIN 13.4 g/dl (12.0-16.0); LYMPH # 0.6 10^3/uL (1.5-4.5); LYMPH % 18.8 % (24.0-44.0); MEAN CORPUSCULAR HEMOGLOBIN 31.3 pg (27.0-33.0); MEAN CORPUSCULAR HGB CONC 32.7 g/dl (32.0-36.5); MEAN CORPUSCULAR VOLUME 95.8 fl (80.0-96.0); MONO # 0.3 10^3/uL (0.0-0.8); MONO % 10.2 % (0.0-5.0); NEUTROPHILS # 2.1 10^3/uL (1.8-7.7); NEUTROPHILS % 69.4 % (36.0-66.0); PLATELET COUNT, AUTOMATED 214 10^3/uL (150-450); RED BLOOD COUNT 4.28 10^6/uL (4.00-5.40); RED CELL DISTRIBUTION WIDTH 13.4 % (11.5-14.5)
[2017-08-17 17:53] LABS: PTH INTACT 34.5 PG/ML (18.5-88.0)
[2017-08-17 17:56] LABS: ALBUMIN 3.7 GM/DL (3.2-5.2); ALBUMIN/GLOBULIN RATIO 1.12 (1.00-1.93); ALKALINE PHOSPHATASE 120 U/L (45-117); ALT/SGPT 29 U/L (12-78); ANION GAP 8 MEQ/L (8-16); AST/SGOT 24 U/L (7-37); BILIRUBIN,TOTAL 0.7 MG/DL (0.2-1.0); BLOOD UREA NITROGEN 27 MG/DL (7-18); CARBON DIOXIDE LEVEL 29 MEQ/L (21-32); CHLORIDE LEVEL 106 MEQ/L (98-107); CREATININE FOR GFR 0.86 MG/DL (0.55-1.30); GLOMERULAR FILTRATION RATE > 60.0 (>39); GLUCOSE, FASTING 102 MG/DL (70-100); POTASSIUM SERUM 4.3 MEQ/L (3.5-5.1); SODIUM LEVEL 143 MEQ/L (136-145)
[2017-08-17 20:22] LABS: TOTAL 25(OH) VITAMIN D 49.8 NG/ML (30.0-100.0)
[2017-08-19 14:16] LABS: ALBUMIN % 58.6 % (55.8-66.1); ALPHA-1-GLOBULIN % 4.2 % (2.9-4.9)
[2017-08-19 14:17] LABS: ALPHA-1-GLOBULINS 0.29 GM/DL (0.17-0.41); BETA-1-GLOBULINS 0.35 GM/DL (0.28-0.60); BETA-2-GLOBULINS 0.31 GM/DL (0.19-0.55); BETA-2-GLOBULINS % 4.4 % (3.2-6.5); GAMMA GLOBULIN % 17.8 % (11.1-18.8); GAMMA GLOBULINS 1.25 GM/DL (0.65-1.58)
[2017-08-21 00:06] LABS: INSULIN LEVEL 14.4 uIU/mL (2.6-24.9)
[2017-08-21 00:06] LABS: SERUM VISCOSITY 1.7 rel.saline (1.6-1.9)
== END ==
LOC: M WUC 10:26
DX: I10 Essential (primary) hypertension (principal); R73.01 Impaired fasting glucose; D47.2 Monoclonal gammopathy; E55.9 Vitamin D deficiency, unspecified
CPT/HCPCS: 83525

== ENCOUNTER → 2017-12-21 | Outpatient (REF) | payer MEDICARE, OTHER | LOC: M SFHCWAGY 13:32 | DX: Z12.4 Encounter for screening for malignant neoplasm of cervix (principal); N95.2 Postmenopausal atrophic vaginitis; Z12.12 Encounter for screening for malignant neoplasm of rectum | CPT/HCPCS: G0123 ==

== ENCOUNTER → 2017-12-27 | Outpatient (CLI) | payer MEDICARE, OTHER | LOC: M RAD 10:40 | DX: Z12.31 Encounter for screening mammogram for malignant neoplasm of breast (principal); C50.912 Malignant neoplasm of unspecified site of left female breast; Z79.810 Long term (current) use of selective estrogen receptor modulators (SERMs); Z80.3 Family history of malignant neoplasm of breast | CPT/HCPCS: 77067 ==

== ENCOUNTER → 2018-01-04 | Outpatient (CLI) | payer MEDICARE, OTHER ==
[2018-01-04 13:41] LABS: BLOOD UREA NITROGEN 24 MG/DL (7-18); CHLORIDE LEVEL 104 MEQ/L (98-107); CREATININE FOR GFR 0.89 MG/DL (0.55-1.30); GLOMERULAR FILTRATION RATE > 60.0 (>39); GLUCOSE, FASTING 82 MG/DL (70-100); POTASSIUM SERUM 4.2 MEQ/L (3.5-5.1); SODIUM LEVEL 142 MEQ/L (136-145)
[2018-01-04 13:42] LABS: ALBUMIN 3.6 GM/DL (3.2-5.2); ALBUMIN/GLOBULIN RATIO 1.03 (1.00-1.93); ALKALINE PHOSPHATASE 122 U/L (45-117); ALT/SGPT 30 U/L (12-78); ANION GAP 6 MEQ/L (8-16); AST/SGOT 22 U/L (7-37); BILIRUBIN,TOTAL 0.8 MG/DL (0.2-1.0); CARBON DIOXIDE LEVEL 32 MEQ/L (21-32); FREE T4 1.61 NG/DL (0.76-1.46); TOTAL PROTEIN 7.1 GM/DL (6.4-8.2)
[2018-01-04 13:52] LABS: ESTIMATED AVERAGE GLUCOSE 114 MG/DL (60-110); HEMOGLOBIN A1c 5.6 %
[2018-01-06 08:34] LABS: FREE KAPPA LIGHT CHAINS SERUM 18.4 mg/L (3.3-19.4); FREE LAMBDA LIGHT CHAINS SERUM 12.6 mg/L (5.7-26.3); FREE LAMBDA LIGHT CHAINS URINE 0.55 mg/L (0.24-6.66); KAPPA/LAMBDA RATIO SERUM 1.46 (0.26-1.65); KAPPA/LAMBDA RATIO URINE 25.64 (2.04-10.37)
== END ==
LOC: M WUC 09:50
DX: D47.2 Monoclonal gammopathy (principal); R73.01 Impaired fasting glucose; E03.9 Hypothyroidism, unspecified
CPT/HCPCS: 80053

== ENCOUNTER → 2018-01-05 | Outpatient (CLI) | payer MEDICARE, OTHER | LOC: M ONCR 10:45 | DX: Z08 Encounter for follow-up examination after completed treatment for malignant neoplasm (principal); Z85.3 Personal history of malignant neoplasm of breast | CPT/HCPCS: G0463 ==

== ENCOUNTER → 2018-01-17 | Outpatient (REF) | payer MEDICARE, OTHER | LOC: M LAB REF 16:48 | DX: M54.9 Dorsalgia, unspecified (principal) ==

== ENCOUNTER 2018-01-18 08:43 | Emergency (ER) | payer MEDICARE, OTHER ==
[2018-01-18 10:07] LABS: HEMATOCRIT 39.4 % (36.0-47.0); HEMOGLOBIN 13.3 g/dl (12.0-15.5); IMMATURE GRANULOCYTE % 0.3 % (0-3.0); LYMPH % 2.1 % (24.0-44.0); MEAN CORPUSCULAR HGB CONC 33.8 g/dl (32.0-36.5); MEAN CORPUSCULAR VOLUME 94.9 fl (80.0-96.0); MONO # 0.3 10^3/uL (0.0-0.8); MONO % 3.9 % (0.0-5.0); NEUTROPHILS # 7.2 10^3/uL (1.8-7.7); NEUTROPHILS % 93.7 % (36.0-66.0); PLATELET COUNT, AUTOMATED 141 10^3/uL (150-450); RED BLOOD COUNT 4.15 10^6/uL (4.00-5.40); RED CELL DISTRIBUTION WIDTH 13.3 % (11.5-14.5); WHITE BLOOD COUNT 7.7 10^3/uL (4.0-10.0)
[2018-01-18] MEDS: ONDANSETRON 4MG/2ML VIAL (J2405) IV (10:10)
[2018-01-18 10:11] LABS: LYMPH # 0.2 10^3/uL (1.5-4.5); POSITIVE DIFF POS FLAG
[2018-01-18] MEDS: MORPHINE 4 MG/ML 1ML VIAL/SYRINGE (J2270) IV (10:11)
[2018-01-18 10:35] LABS: ALBUMIN 3.4 GM/DL (3.2-5.2); ALBUMIN/GLOBULIN RATIO 0.87 (1.00-1.93); ALKALINE PHOSPHATASE 130 U/L (45-117); ALT/SGPT 60 U/L (12-78); ANION GAP 9 MEQ/L (8-16); AST/SGOT 50 U/L (7-37); BLOOD UREA NITROGEN 19 MG/DL (7-18); CALCIUM LEVEL 8.9 MG/DL (8.8-10.2); CARBON DIOXIDE LEVEL 26 MEQ/L (21-32); CHLORIDE LEVEL 103 MEQ/L (98-107); CREATININE FOR GFR 0.95 MG/DL (0.55-1.30); GLOMERULAR FILTRATION RATE > 60.0 (>39); GLUCOSE, FASTING 124 MG/DL (70-100); SODIUM LEVEL 138 MEQ/L (136-145); TOTAL PROTEIN 7.3 GM/DL (6.4-8.2)
[2018-01-18] MEDS: MORPHINE 2 MG/ML 1ML SYRINGE (J2270) IV (11:11)
[2018-01-18 12:09] LABS: KETONE, URINE AUTO RFX 1+ mg/dL (NEGATIVE); LEUKOCYTE ESTERASE UR AUTO RFX NEGATIVE (NEGATIVE); MUCUS, URINE RFX SMALL (NEGATIVE); NITRITE, URINE AUTO RFX NEGATIVE (NEGATIVE); RBC, URINE AUTO RFX 4 /HPF (0-3); SPECIFIC GRAVITY UR AUTO RFX 1.021 (1.002-1.035); SQUAM EPITHELIAL CELL UR AURFX 0 /HPF (0-6); WBC, URINE AUTO RFX 2 /HPF (0-3)
[2018-01-18] MEDS: MOXIFLOXACIN 400 MG TAB PO (12:54)
[2018-01-18] MEDS: ACETAMINOPHEN 325 MG TAB PO (13:09)
== END 2018-01-18 13:36 | disposition home or self-care (01) ==
LOC: M ED 08:43
DX: K44.9 Diaphragmatic hernia without obstruction or gangrene (principal); K57.30 Diverticulosis of large intestine without perforation or abscess without bleeding; J98.11 Atelectasis; R91.8 Other nonspecific abnormal finding of lung field; M47.817 Spondylosis without myelopathy or radiculopathy, lumbosacral region; M43.16 Spondylolisthesis, lumbar region; R31.9 Hematuria, unspecified; E03.9 Hypothyroidism, unspecified; K21.9 Gastro-esophageal reflux disease without esophagitis; Z85.3 Personal history of malignant neoplasm of breast; Z88.5 Allergy status to narcotic agent; Z79.890 Hormone replacement therapy; Z79.899 Other long term (current) drug therapy; Z79.52 Long term (current) use of systemic steroids; Z87.01 Personal history of pneumonia (recurrent); Z98.890 Other specified postprocedural states

== ENCOUNTER 2018-01-20 13:31 | Inpatient (IN) | payer MEDICARE, OTHER ==
[~2018-01-20 13:31] MED LIST changes: +ACETAMINOPHEN 500 MG TAB PO; -ALBU17IN2 INH; -AMOX875T PO; -ASPI1TAB PO; -CALC600T57 PO; -CALCTAB68 PO; -CENTTAB47 PO; -GLUC15002 PO; -GLUC1CAP10 PO; -IBUP-1022 PO; -KETO2AER2 EX; -KETO2CR EXT; -LEVO50TA45 PO; -NABU750T PO; -NORCOTAB PO; -NYST10CR EXT; -OMEP40CA2 PO; +ONDANSETRON 4MG/2ML VIAL (J2405) IV; -OPCOSOL OU; -PROBCAP4 PO; -VITA200015 PO
[2018-01-20] MEDS ORDERED: CYCLOBENZAPRINE 10 MG TAB PO (13:45)
[2018-01-20 14:23] LABS: BASO % 0.2 % (0.0-1.0); HEMATOCRIT 38.7 % (36.0-47.0); HEMOGLOBIN 13.1 g/dl (12.0-15.5); IMMATURE GRANULOCYTE % 1.5 % (0-3.0); LYMPH # 0.5 10^3/uL (1.5-4.5); LYMPH % 5.4 % (24.0-44.0); MEAN CORPUSCULAR HEMOGLOBIN 32.1 pg (27.0-33.0); MEAN CORPUSCULAR HGB CONC 33.9 g/dl (32.0-36.5); MEAN CORPUSCULAR VOLUME 94.9 fl (80.0-96.0); MONO # 0.7 10^3/uL (0.0-0.8); MONO % 7.8 % (0.0-5.0); NEUTROPHILS # 7.2 10^3/uL (1.8-7.7); NEUTROPHILS % 85.1 % (36.0-66.0); PLATELET COUNT, AUTOMATED 155 10^3/uL (150-450); RED BLOOD COUNT 4.08 10^6/uL (4.00-5.40); WHITE BLOOD COUNT 8.5 10^3/uL (4.0-10.0)
[2018-01-20 14:31] LABS: INR 1.04; PROTHROMBIN TIME 13.7 SECONDS (12.1-14.4)
[2018-01-20 14:53] LABS: ALBUMIN 2.9 GM/DL (3.2-5.2); ALBUMIN/GLOBULIN RATIO 0.58 (1.00-1.93); ALKALINE PHOSPHATASE 145 U/L (45-117); ALT/SGPT 55 U/L (12-78); ANION GAP 9 MEQ/L (8-16); AST/SGOT 54 U/L (7-37); BLOOD UREA NITROGEN 20 MG/DL (7-18); CALCIUM LEVEL 9.1 MG/DL (8.8-10.2); CARBON DIOXIDE LEVEL 25 MEQ/L (21-32); CHLORIDE LEVEL 102 MEQ/L (98-107); CREATININE FOR GFR 0.93 MG/DL (0.55-1.30); GLOMERULAR FILTRATION RATE > 60.0 (>39); GLUCOSE, FASTING 129 MG/DL (70-100); POTASSIUM SERUM 4.2 MEQ/L (3.5-5.1); SODIUM LEVEL 136 MEQ/L (136-145); TOTAL PROTEIN 7.9 GM/DL (6.4-8.2)
[2018-01-20] MEDS ORDERED: cefTRIAXone SOD 2 GM in D5W MINI-BAG PLUS 50 ML IV (15:00)
[2018-01-20 15:01] LABS: ERYTHROCYTE SEDIMENTATION RATE 63 mm/hr (0-30)
[2018-01-20] MEDS ORDERED: PROHANCE 279.3MG/ML 5ML VIAL (A9576) As Ordered (15:20)
[2018-01-20] MEDS ORDERED: PROHANCE 279.3MG/ML 15ML VIAL (A9576) As Ordered (15:21)
[2018-01-20] MEDS ORDERED: VANCOMYCIN HCL 1,000 MG, VIAL MATE ADAPTER 1 EACH in D5W 250 ML IV (16:00)
[2018-01-20] MEDS: ENOXAPARIN 40 MG/0.4 ML SYRINGE (J1650) SC (18:42)
[2018-01-20] MEDS: cefTRIAXone SOD 2 GM in D5W MINI-BAG PLUS 50 ML IV (20:08)
[2018-01-20] MEDS: NORCO, ANEXSIA 5/325MG TABLET (HYDROcodone/ACETAMINOPHEN) PO (20:09)
[2018-01-20] MEDS: LETROZOLE 2.5 MG TAB PO (21:55)
[2018-01-20] MEDS: VANCOMYCIN HCL 1,000 MG, VIAL MATE ADAPTER 1 EACH in D5W 250 ML IV ×2 (21:55→22:53)
[2018-01-21] MEDS: NORCO, ANEXSIA 5/325MG TABLET (HYDROcodone/ACETAMINOPHEN) PO ×5 (01:15→20:00)
[2018-01-21 06:14] LABS: BASO % 0.1 % (0.0-1.0); EOS % 0.1 % (0.0-3.0); HEMATOCRIT 32.5 % (36.0-47.0); IMMATURE GRANULOCYTE % 1.5 % (0-3.0); LYMPH # 0.6 10^3/uL (1.5-4.5); LYMPH % 8.9 % (24.0-44.0); MEAN CORPUSCULAR HEMOGLOBIN 32.2 pg (27.0-33.0); MEAN CORPUSCULAR HGB CONC 34.2 g/dl (32.0-36.5); MEAN CORPUSCULAR VOLUME 94.2 fl (80.0-96.0); MONO # 0.9 10^3/uL (0.0-0.8); MONO % 13.1 % (0.0-5.0); NEUTROPHILS # 5.5 10^3/uL (1.8-7.7); NEUTROPHILS % 76.3 % (36.0-66.0); PLATELET COUNT, AUTOMATED 142 10^3/uL (150-450); RED BLOOD COUNT 3.45 10^6/uL (4.00-5.40); WHITE BLOOD COUNT 7.2 10^3/uL (4.0-10.0)
[2018-01-21 06:23] LABS: HEMOGLOBIN 11.1 g/dl (12.0-15.5)
[2018-01-21] MEDS: LEVOTHYROXINE 50MCG TABLET (0.05MG) PO (06:35)
[2018-01-21 06:38] LABS: ALBUMIN 2.3 GM/DL (3.2-5.2); ALBUMIN/GLOBULIN RATIO 0.58 (1.00-1.93); ALKALINE PHOSPHATASE 134 U/L (45-117); ALT/SGPT 60 U/L (12-78); ANION GAP 6 MEQ/L (8-16); AST/SGOT 61 U/L (7-37); BILIRUBIN,TOTAL 0.6 MG/DL (0.2-1.0); BLOOD UREA NITROGEN 19 MG/DL (7-18); CALCIUM LEVEL 8.3 MG/DL (8.8-10.2); CARBON DIOXIDE LEVEL 29 MEQ/L (21-32); CHLORIDE LEVEL 103 MEQ/L (98-107); CREATININE FOR GFR 0.89 MG/DL (0.55-1.30); GLOMERULAR FILTRATION RATE > 60.0 (>39); GLUCOSE, FASTING 116 MG/DL (70-100); SODIUM LEVEL 138 MEQ/L (136-145); TOTAL PROTEIN 6.3 GM/DL (6.4-8.2)
[2018-01-21] MEDS: ENOXAPARIN 40 MG/0.4 ML SYRINGE (J1650) SC (08:39)
[2018-01-21] MEDS: OMEPRAZOLE 20 MG CAP PO (08:39)
[2018-01-21] MEDS: cefTRIAXone SOD 2 GM in D5W MINI-BAG PLUS 50 ML IV ×2 (08:39→19:59)
[2018-01-21] MEDS: VANCOMYCIN HCL 1,000 MG, VIAL MATE ADAPTER 1 EACH in D5W 250 ML IV ×2 (09:25→21:09)
[2018-01-21] MEDS: LETROZOLE 2.5 MG TAB PO (20:01)
[2018-01-21] MEDS: PREGABALIN 50 MG CAP (LYRICA) PO (20:01)
[2018-01-22] MEDS: DICLOFENAC EPOLAMINE 1.3 % PATCH TOP ×3 (00:19→20:22)
[2018-01-22] MEDS: NORCO, ANEXSIA 5/325MG TABLET (HYDROcodone/ACETAMINOPHEN) PO ×4 (04:19→20:23)
[2018-01-22 05:22] LABS: BASO % 0.2 % (0.0-1.0); EOS % 0.3 % (0.0-3.0); HEMATOCRIT 33.9 % (36.0-47.0); HEMOGLOBIN 11.6 g/dl (12.0-15.5); IMMATURE GRANULOCYTE % 3.6 % (0-3.0); LYMPH # 0.8 10^3/uL (1.5-4.5); LYMPH % 9.1 % (24.0-44.0); MEAN CORPUSCULAR HEMOGLOBIN 31.7 pg (27.0-33.0); MEAN CORPUSCULAR HGB CONC 34.2 g/dl (32.0-36.5); MEAN CORPUSCULAR VOLUME 92.6 fl (80.0-96.0); MONO % 11.7 % (0.0-5.0); NEUTROPHILS # 6.7 10^3/uL (1.8-7.7); NEUTROPHILS % 75.1 % (36.0-66.0); PLATELET COUNT, AUTOMATED 172 10^3/uL (150-450); RED BLOOD COUNT 3.66 10^6/uL (4.00-5.40); RED CELL DISTRIBUTION WIDTH 13.8 % (11.5-14.5); WHITE BLOOD COUNT 8.9 10^3/uL (4.0-10.0)
[2018-01-22] MEDS: LEVOTHYROXINE 50MCG TABLET (0.05MG) PO (05:24)
[2018-01-22 05:45] LABS: ALBUMIN 2.2 GM/DL (3.2-5.2); ALBUMIN/GLOBULIN RATIO 0.59 (1.00-1.93); ALKALINE PHOSPHATASE 188 U/L (45-117); ALT/SGPT 98 U/L (12-78); ANION GAP 7 MEQ/L (8-16); AST/SGOT 93 U/L (7-37); BILIRUBIN,TOTAL 0.7 MG/DL (0.2-1.0); BLOOD UREA NITROGEN 13 MG/DL (7-18); CALCIUM LEVEL 7.9 MG/DL (8.8-10.2); CARBON DIOXIDE LEVEL 27 MEQ/L (21-32); CHLORIDE LEVEL 102 MEQ/L (98-107); CREATININE FOR GFR 0.69 MG/DL (0.55-1.30); GLOMERULAR FILTRATION RATE > 60.0 (>39); GLUCOSE, FASTING 123 MG/DL (70-100); POTASSIUM SERUM 3.9 MEQ/L (3.5-5.1); SODIUM LEVEL 136 MEQ/L (136-145); TOTAL PROTEIN 5.9 GM/DL (6.4-8.2)
[2018-01-22 05:52] LABS: ERYTHROCYTE SEDIMENTATION RATE 61 mm/hr (0-30)
[2018-01-22] MEDS: cefTRIAXone SOD 2 GM in D5W MINI-BAG PLUS 50 ML IV ×2 (08:19→19:25)
[2018-01-22 09:00] LABS: VANCOMYCIN LEVEL TROUGH 8.8 UG/ML (10.0-20.0)
[2018-01-22] MEDS: PREGABALIN 50 MG CAP (LYRICA) PO ×2 (10:21→20:22)
[2018-01-22] MEDS: OMEPRAZOLE 20 MG CAP PO (10:21)
[2018-01-22] MEDS: ENOXAPARIN 40 MG/0.4 ML SYRINGE (J1650) SC (10:22)
[2018-01-22] MEDS: VANCOMYCIN HCL 1,000 MG, VIAL MATE ADAPTER 1 EACH in D5W 250 ML IV (10:23)
[2018-01-22] MEDS: MIRALAX *UNIT DOSE* 17GM PACKET PO (13:06)
[2018-01-22] MEDS: LETROZOLE 2.5 MG TAB PO (20:22)
[2018-01-23] MEDS: NORCO, ANEXSIA 5/325MG TABLET (HYDROcodone/ACETAMINOPHEN) PO ×5 (03:22→22:56)
[2018-01-23] MEDS: NYSTATIN 100,000 UNITS/GM TOPICAL PWD 15 GM TOP ×2 (03:23→08:42)
[2018-01-23 06:01] LABS: HEMATOCRIT 33.2 % (36.0-47.0); HEMOGLOBIN 11.4 g/dl (12.0-15.5); MEAN CORPUSCULAR HEMOGLOBIN 32.1 pg (27.0-33.0); MEAN CORPUSCULAR HGB CONC 34.3 g/dl (32.0-36.5); MEAN CORPUSCULAR VOLUME 93.5 fl (80.0-96.0); PLATELET COUNT, AUTOMATED 223 10^3/uL (150-450); RED BLOOD COUNT 3.55 10^6/uL (4.00-5.40); RED CELL DISTRIBUTION WIDTH 14.1 % (11.5-14.5); WHITE BLOOD COUNT 9.3 10^3/uL (4.0-10.0)
[2018-01-23 06:07] LABS: ADD MANUAL DIFFER YES; DIFF SLIDE NUMBER 26; POS COUNT POS FLAG; POSITIVE MORPH POS FLAG
[2018-01-23] MEDS: LEVOTHYROXINE 50MCG TABLET (0.05MG) PO (06:15)
[2018-01-23 06:26] LABS: ALBUMIN/GLOBULIN RATIO 0.44 (1.00-1.93); ALKALINE PHOSPHATASE 220 U/L (45-117); ALT/SGPT 116 U/L (12-78); ANION GAP 8 MEQ/L (8-16); AST/SGOT 96 U/L (7-37); BILIRUBIN,TOTAL 0.8 MG/DL (0.2-1.0); BLOOD UREA NITROGEN 12 MG/DL (7-18); CALCIUM LEVEL 8.1 MG/DL (8.8-10.2); CARBON DIOXIDE LEVEL 28 MEQ/L (21-32); CHLORIDE LEVEL 101 MEQ/L (98-107); CREATININE FOR GFR 0.58 MG/DL (0.55-1.30); GLOMERULAR FILTRATION RATE > 60.0 (>39); GLUCOSE, FASTING 124 MG/DL (70-100); POTASSIUM SERUM 3.8 MEQ/L (3.5-5.1); SODIUM LEVEL 137 MEQ/L (136-145); TOTAL PROTEIN 6.5 GM/DL (6.4-8.2)
[2018-01-23 06:46] LABS: ATYPICAL LYMPH 2 % (0-5); LYMPHOCYTES 18 % (16-52); METAMYELOCYTES 2 % (0-0); MYELOCYTES 3 % (0-0); NEUTROPHILS 75 % (35-75)
[2018-01-23 06:47] LABS: ANISOCYTOSIS 1+; PLATELET ESTIMATE NORMAL (NORMAL); TOXIC GRANULATION 1+
[2018-01-23] MEDS: ENOXAPARIN 40 MG/0.4 ML SYRINGE (J1650) SC (08:40)
[2018-01-23] MEDS: PREGABALIN 50 MG CAP (LYRICA) PO ×2 (08:41→21:31)
[2018-01-23] MEDS: OMEPRAZOLE 20 MG CAP PO (08:41)
[2018-01-23] MEDS: DICLOFENAC EPOLAMINE 1.3 % PATCH TOP ×2 (08:41→21:31)
[2018-01-23] MEDS: cefTRIAXone SOD 2 GM in D5W MINI-BAG PLUS 50 ML IV ×2 (08:41→21:28)
[2018-01-23] MEDS: DOCUSATE SODIUM 100 MG CAP PO ×2 (08:56→21:31)
[2018-01-23] MEDS: LETROZOLE 2.5 MG TAB PO (21:28)
[2018-01-24] MEDS: NYSTATIN 100,000 UNITS/GM TOPICAL PWD 15 GM TOP (01:00)
[2018-01-24 05:38] LABS: BASO % 0.3 % (0.0-1.0); EOS # 0.1 10^3/uL (0.0-0.50); EOS % 0.6 % (0.0-3.0); HEMATOCRIT 34.4 % (36.0-47.0); HEMOGLOBIN 11.7 g/dl (12.0-15.5); IMMATURE GRANULOCYTE % 4.5 % (0-3.0); LYMPH # 0.7 10^3/uL (1.5-4.5); LYMPH % 7.3 % (24.0-44.0); MEAN CORPUSCULAR HEMOGLOBIN 31.9 pg (27.0-33.0); MEAN CORPUSCULAR VOLUME 93.7 fl (80.0-96.0); MONO % 9.9 % (0.0-5.0); NEUTROPHILS # 7.7 10^3/uL (1.8-7.7); NEUTROPHILS % 77.4 % (36.0-66.0); PLATELET COUNT, AUTOMATED 264 10^3/uL (150-450); RED BLOOD COUNT 3.67 10^6/uL (4.00-5.40); RED CELL DISTRIBUTION WIDTH 14.2 % (11.5-14.5); WHITE BLOOD COUNT 9.9 10^3/uL (4.0-10.0)
[2018-01-24] MEDS: NORCO, ANEXSIA 5/325MG TABLET (HYDROcodone/ACETAMINOPHEN) PO ×3 (05:54→23:32)
[2018-01-24] MEDS: LEVOTHYROXINE 50MCG TABLET (0.05MG) PO (05:54)
[2018-01-24 05:56] LABS: ALBUMIN/GLOBULIN RATIO 0.44 (1.00-1.93); ALKALINE PHOSPHATASE 232 U/L (45-117); ALT/SGPT 124 U/L (12-78); ANION GAP 7 MEQ/L (8-16); AST/SGOT 95 U/L (7-37); BILIRUBIN,TOTAL 0.7 MG/DL (0.2-1.0); BLOOD UREA NITROGEN 10 MG/DL (7-18); CALCIUM LEVEL 8.2 MG/DL (8.8-10.2); CARBON DIOXIDE LEVEL 30 MEQ/L (21-32); CHLORIDE LEVEL 99 MEQ/L (98-107); CREATININE FOR GFR 0.64 MG/DL (0.55-1.30); GLOMERULAR FILTRATION RATE > 60.0 (>39); GLUCOSE, FASTING 118 MG/DL (70-100); POTASSIUM SERUM 3.9 MEQ/L (3.5-5.1); SODIUM LEVEL 136 MEQ/L (136-145); TOTAL PROTEIN 6.5 GM/DL (6.4-8.2)
[2018-01-24] MEDS: OMEPRAZOLE 20 MG CAP PO (08:13)
[2018-01-24] MEDS: ENOXAPARIN 40 MG/0.4 ML SYRINGE (J1650) SC (08:14)
[2018-01-24] MEDS: PREGABALIN 50 MG CAP (LYRICA) PO ×2 (08:14→23:31)
[2018-01-24] MEDS: cefTRIAXone SOD 2 GM in D5W MINI-BAG PLUS 50 ML IV (08:15)
[2018-01-24] MEDS: DICLOFENAC EPOLAMINE 1.3 % PATCH TOP ×2 (08:15→23:12)
[2018-01-24 13:19] LABS: FERRITIN 975 NG/ML (8-252); RHEUMATOID FACTOR QUANT < 10.0 IU/ML (<15.0); URIC ACID 2.3 MG/DL (2.6-6.0)
[2018-01-24 13:19] LABS: GAMMA GLUTAMYLTRANSPEPTIDASE 369 U/L (5-55)
[2018-01-24 15:40] LABS: APPEARANCE, BODY FLUID CLOUDY (CLEAR); SOURCE, BODY FLUID RT KNEE; SYNOVIAL FLUID COLOR YELLOW (YELLOW)
[2018-01-24 15:41] LABS: CRYSTALS, BODY FLUID NONE SEEN (NONE SEEN); SOURCE, BODY FLUID CRYSTALS RT KNEE
[2018-01-24 16:44] LABS: BF MONONUCLEAR CELL % 2.2 % (0-0); BF POLYMORPHONUCLEAR CELL % 97.8 % (0-0); RBC BODY FLUID 10 10^3/uL (<2); WBC BODY FLUID 46175 /uL (0-10)
[2018-01-24 16:45] LABS: BF DIFF IF INDICATED? YES (NO)
[2018-01-24] MEDS: SODIUM CHLORIDE 0.9% INJ 10 ML SYR IV (17:53)
[2018-01-24] MEDS: LETROZOLE 2.5 MG TAB PO (23:31)
[2018-01-25] MEDS: LEVOTHYROXINE 50MCG TABLET (0.05MG) PO (05:14)
[2018-01-25] MEDS: SODIUM CHLORIDE 0.9% INJ 10 ML SYR IV ×2 (05:15→17:06)
[2018-01-25 06:30] LABS: ALBUMIN/GLOBULIN RATIO 0.54 (1.00-1.93); ALKALINE PHOSPHATASE 237 U/L (45-117); ALT/SGPT 110 U/L (12-78); ANION GAP 9 MEQ/L (8-16); AST/SGOT 90 U/L (7-37); BILIRUBIN,TOTAL 0.7 MG/DL (0.2-1.0); BLOOD UREA NITROGEN 9 MG/DL (7-18); CALCIUM LEVEL 8.1 MG/DL (8.8-10.2); CARBON DIOXIDE LEVEL 30 MEQ/L (21-32); CHLORIDE LEVEL 99 MEQ/L (98-107); CREATININE FOR GFR 0.55 MG/DL (0.55-1.30); GLOMERULAR FILTRATION RATE > 60.0 (>39); GLUCOSE, FASTING 93 MG/DL (70-100); POTASSIUM SERUM 4.2 MEQ/L (3.5-5.1); SODIUM LEVEL 138 MEQ/L (136-145); TOTAL PROTEIN 5.7 GM/DL (6.4-8.2)
[2018-01-25] MEDS: OMEPRAZOLE 20 MG CAP PO (08:49)
[2018-01-25] MEDS: PREGABALIN 50 MG CAP (LYRICA) PO ×2 (08:50→21:06)
[2018-01-25] MEDS: cefTRIAXone SOD 2 GM in D5W MINI-BAG PLUS 50 ML IV (08:50)
[2018-01-25] MEDS: ENOXAPARIN 40 MG/0.4 ML SYRINGE (J1650) SC (08:50)
[2018-01-25] MEDS: DICLOFENAC EPOLAMINE 1.3 % PATCH TOP ×2 (09:00→21:07)
[2018-01-25] MEDS: NORCO, ANEXSIA 5/325MG TABLET (HYDROcodone/ACETAMINOPHEN) PO ×3 (09:34→21:07)
[2018-01-25] MEDS: MOM 30ML SUSPENSION UDC PO ×2 (11:23→21:06)
[2018-01-25] MEDS: NYSTATIN 500,000 U/5 ML SUSP UDC SS ×3 (12:55→21:06)
[2018-01-25] MEDS: LETROZOLE 2.5 MG TAB PO (21:07)
[2018-01-26 00:14] LABS: ANTINUCLEAR ANTIBODIES DIRECT Negative (Negative); Lyme Disease IgG/IgM Antibodie <0.91 ISR (0.00-0.90); Lyme Disease IgM Ab Quantitati <0.80 index (0.00-0.79)
[2018-01-26 00:14] LABS: CYCLIC CITRULLINATED PEPTIDE 44 units (0-19)
[2018-01-26] MEDS: SODIUM CHLORIDE 0.9% INJ 10 ML SYR IV ×2 (05:33→18:00)
[2018-01-26] MEDS: LEVOTHYROXINE 50MCG TABLET (0.05MG) PO (05:33)
[2018-01-26 05:48] LABS: HEMATOCRIT 31.2 % (36.0-47.0); HEMOGLOBIN 10.8 g/dl (12.0-15.5); MEAN CORPUSCULAR HEMOGLOBIN 31.7 pg (27.0-33.0); MEAN CORPUSCULAR HGB CONC 34.6 g/dl (32.0-36.5); MEAN CORPUSCULAR VOLUME 91.5 fl (80.0-96.0); PLATELET COUNT, AUTOMATED 325 10^3/uL (150-450); RED BLOOD COUNT 3.41 10^6/uL (4.00-5.40); RED CELL DISTRIBUTION WIDTH 13.9 % (11.5-14.5); WHITE BLOOD COUNT 10.2 10^3/uL (4.0-10.0)
[2018-01-26] MEDS: DICLOFENAC EPOLAMINE 1.3 % PATCH TOP ×2 (09:00→20:06)
[2018-01-26] MEDS: PREGABALIN 50 MG CAP (LYRICA) PO ×2 (09:19→20:05)
[2018-01-26] MEDS: OMEPRAZOLE 20 MG CAP PO (09:19)
[2018-01-26] MEDS: cefTRIAXone SOD 2 GM in D5W MINI-BAG PLUS 50 ML IV (09:19)
[2018-01-26] MEDS: NYSTATIN 500,000 U/5 ML SUSP UDC SS ×4 (09:20→20:05)
[2018-01-26 10:21] LABS: ALBUMIN 1.9 GM/DL (3.2-5.2); ALBUMIN/GLOBULIN RATIO 0.54 (1.00-1.93); ALKALINE PHOSPHATASE 278 U/L (45-117); ALT/SGPT 110 U/L (12-78); ANION GAP 8 MEQ/L (8-16); AST/SGOT 83 U/L (7-37); BILIRUBIN,TOTAL 0.6 MG/DL (0.2-1.0); BLOOD UREA NITROGEN 9 MG/DL (7-18); CARBON DIOXIDE LEVEL 28 MEQ/L (21-32); CHLORIDE LEVEL 103 MEQ/L (98-107); CREATININE FOR GFR 0.46 MG/DL (0.55-1.30); GLOMERULAR FILTRATION RATE > 60.0 (>39); GLUCOSE, FASTING 108 MG/DL (70-100); POTASSIUM SERUM 3.9 MEQ/L (3.5-5.1); SODIUM LEVEL 139 MEQ/L (136-145); TOTAL PROTEIN 5.4 GM/DL (6.4-8.2)
[2018-01-26 13:38] LABS: INR 1.04; PROTHROMBIN TIME 13.7 SECONDS (12.1-14.4)
[2018-01-26 13:46] LABS: IRON (FE) 18 UG/DL (50-170); PERCENT SATURATION 12.3 % (13.2-45.0); TOTAL IRON BINDING CAPACITY 146 UG/DL (250-450)
[2018-01-26 13:50] LABS: SOURCE, BODY FLUID RT KNEE; SYNOVIAL FLUID COLOR AMBER (YELLOW)
[2018-01-26 13:51] LABS: APPEARANCE, BODY FLUID CLOUDY (CLEAR); BF DIFF IF INDICATED? YES (NO)
[2018-01-26 14:03] LABS: HEPATITIS B SURFACE ANTIGEN NEGATIVE (NEGATIVE)
[2018-01-26 14:30] LABS: HEPATITIS C VIRUS ABY INDEX 0.1 INDEX (<0.8)
[2018-01-26 14:30] LABS: HEPATITIS B CORE ANTIBODY IGM NEGATIVE (NEGATIVE)
[2018-01-26 14:33] LABS: HEPATITIS A ANTIBODY IGM NEGATIVE (NEGATIVE)
[2018-01-26 14:42] LABS: BF MONONUCLEAR CELL % 2.6 % (0-0); RBC BODY FLUID 40 10^3/uL (<2); WBC BODY FLUID 45505 /uL (0-10)
[2018-01-26 14:43] LABS: BF POLYMORPHONUCLEAR CELL % 97.4 % (0-0)
[2018-01-26] MEDS ORDERED: LIDOCAINE 2% INJ 100 MG/5 ML SDV (FOR ANES.) As Ordered (16:50)
[2018-01-26] MEDS ORDERED: PROPOFOL 200 MG/20 ML VIAL As Ordered (16:50)
[2018-01-26] MEDS ORDERED: fentaNYL 100 MCG/2 ML INJECTION (J3010) As Ordered ×4 (16:53→19:03)
[2018-01-26] MEDS ORDERED: MIDAZOLAM INJ 2 MG/2 ML VIAL (J2250) As Ordered (16:53)
[2018-01-26] MEDS: ceFAZolin 2 GM/D5W 50 ML IV BAG (J0690 PER 500MG) As Ordered (17:44)
[2018-01-26] MEDS ORDERED: ONDANSETRON 4MG/2ML VIAL (J2405) As Ordered (17:48)
[2018-01-26] MEDS ORDERED: KETOROLAC 60 MG/2 ML VIAL (J1885) As Ordered (17:48)
[2018-01-26] MEDS ORDERED: dexameTHASONE 4 MG/ML 1ML VIAL (J1100) As Ordered ×2 (17:48)
[2018-01-26] MEDS: LR 1,000 ML IV (18:38)
[2018-01-26] MEDS ORDERED: PERCOCET 5MG/325MG TAB As Ordered (19:00)
[2018-01-26] MEDS: PERCOCET 5MG/325MG TAB PO (19:00)
[2018-01-26] MEDS: fentaNYL 100 MCG/2 ML INJECTION (J3010) IV ×4 (19:00→19:23)
[2018-01-26] MEDS ORDERED: ONDANSETRON 4MG/2ML VIAL (J2405) IV (19:00)
[2018-01-26] MEDS: LETROZOLE 2.5 MG TAB PO (20:05)
[2018-01-27] MEDS: LEVOTHYROXINE 50MCG TABLET (0.05MG) PO (05:13)
[2018-01-27] MEDS: SODIUM CHLORIDE 0.9% INJ 10 ML SYR IV ×2 (05:14→17:57)
[2018-01-27 06:05] LABS: ALBUMIN/GLOBULIN RATIO 0.41 (1.00-1.93); ALKALINE PHOSPHATASE 282 U/L (45-117); ALT/SGPT 100 U/L (12-78); ANION GAP 8 MEQ/L (8-16); AST/SGOT 65 U/L (7-37); BILIRUBIN,TOTAL 0.5 MG/DL (0.2-1.0); BLOOD UREA NITROGEN 15 MG/DL (7-18); CALCIUM LEVEL 8.5 MG/DL (8.8-10.2); CARBON DIOXIDE LEVEL 30 MEQ/L (21-32); CHLORIDE LEVEL 99 MEQ/L (98-107); CREATININE FOR GFR 0.64 MG/DL (0.55-1.30); GLOMERULAR FILTRATION RATE > 60.0 (>39); GLUCOSE, FASTING 163 MG/DL (70-100); POTASSIUM SERUM 4.8 MEQ/L (3.5-5.1); SODIUM LEVEL 137 MEQ/L (136-145); TOTAL PROTEIN 6.9 GM/DL (6.4-8.2)
[2018-01-27] MEDS: cefTRIAXone SOD 2 GM in D5W MINI-BAG PLUS 50 ML IV (08:07)
[2018-01-27] MEDS: OMEPRAZOLE 20 MG CAP PO (08:07)
[2018-01-27] MEDS: PREGABALIN 50 MG CAP (LYRICA) PO ×2 (08:08→21:28)
[2018-01-27] MEDS: NYSTATIN 500,000 U/5 ML SUSP UDC SS ×4 (08:08→21:28)
[2018-01-27] MEDS: DICLOFENAC EPOLAMINE 1.3 % PATCH TOP ×2 (08:09→21:28)
[2018-01-27] MEDS: ENOXAPARIN 40 MG/0.4 ML SYRINGE (J1650) SC (09:39)
[2018-01-27] MEDS ORDERED: PROHANCE 279.3MG/ML 15ML VIAL (A9576) As Ordered (19:50)
[2018-01-27] MEDS ORDERED: PROHANCE 279.3MG/ML 5ML VIAL (A9576) As Ordered (19:51)
[2018-01-27] MEDS: LETROZOLE 2.5 MG TAB PO (21:28)
[2018-01-28] MEDS: PERCOCET 5MG/325MG TAB PO ×3 (02:17→20:41)
[2018-01-28] MEDS: LEVOTHYROXINE 50MCG TABLET (0.05MG) PO (05:20)
[2018-01-28] MEDS: SODIUM CHLORIDE 0.9% INJ 10 ML SYR IV ×2 (05:21→16:17)
[2018-01-28 05:36] LABS: BASO % 0.1 % (0.0-1.0); EOS % 0.3 % (0.0-3.0); HEMOGLOBIN 10.1 g/dl (12.0-15.5); IMMATURE GRANULOCYTE % 0.8 % (0-3.0); LYMPH % 9.9 % (24.0-44.0); MEAN CORPUSCULAR HGB CONC 33.7 g/dl (32.0-36.5); MEAN CORPUSCULAR VOLUME 94.9 fl (80.0-96.0); NEUTROPHILS # 7.7 10^3/uL (1.8-7.7); NEUTROPHILS % 78.9 % (36.0-66.0); PLATELET COUNT, AUTOMATED 398 10^3/uL (150-450); RED BLOOD COUNT 3.16 10^6/uL (4.00-5.40); RED CELL DISTRIBUTION WIDTH 13.8 % (11.5-14.5); WHITE BLOOD COUNT 9.7 10^3/uL (4.0-10.0)
[2018-01-28 05:51] LABS: ALBUMIN 2.1 GM/DL (3.2-5.2); ALBUMIN/GLOBULIN RATIO 0.48 (1.00-1.93); ALKALINE PHOSPHATASE 244 U/L (45-117); ALT/SGPT 120 U/L (12-78); ANION GAP 6 MEQ/L (8-16); AST/SGOT 94 U/L (7-37); BILIRUBIN,TOTAL 0.4 MG/DL (0.2-1.0); BLOOD UREA NITROGEN 16 MG/DL (7-18); CALCIUM LEVEL 8.2 MG/DL (8.8-10.2); CARBON DIOXIDE LEVEL 31 MEQ/L (21-32); CHLORIDE LEVEL 102 MEQ/L (98-107); CREATININE FOR GFR 0.68 MG/DL (0.55-1.30); GLOMERULAR FILTRATION RATE > 60.0 (>39); GLUCOSE, FASTING 106 MG/DL (70-100); POTASSIUM SERUM 4.2 MEQ/L (3.5-5.1); SODIUM LEVEL 139 MEQ/L (136-145); TOTAL PROTEIN 6.5 GM/DL (6.4-8.2)
[2018-01-28] MEDS: DICLOFENAC EPOLAMINE 1.3 % PATCH TOP ×2 (09:00→20:41)
[2018-01-28] MEDS: OMEPRAZOLE 20 MG CAP PO (09:06)
[2018-01-28] MEDS: NYSTATIN 500,000 U/5 ML SUSP UDC SS ×4 (09:06→20:40)
[2018-01-28] MEDS: PREGABALIN 50 MG CAP (LYRICA) PO ×2 (09:06→20:40)
[2018-01-28] MEDS: cefTRIAXone SOD 2 GM in D5W MINI-BAG PLUS 50 ML IV (09:07)
[2018-01-28] MEDS: ENOXAPARIN 40 MG/0.4 ML SYRINGE (J1650) SC (09:07)
[2018-01-28] MEDS: LETROZOLE 2.5 MG TAB PO (20:40)
[2018-01-28] MEDS: MOM 30ML SUSPENSION UDC PO (20:40)
[2018-01-29 00:07] LABS: ANCA-ATYPICAL <1:20 titer (Neg:<1:20); ANTI-MITOCHONDRIAL ANTIBODY 0.9 Units (0.0-20.0); CYTOPLASMIC NEUTROP AB ANCA-C <1:20 titer (Neg:<1:20); PERINUCLEAR AB ANCA-P <1:20 titer (Neg:<1:20)
[2018-01-29] MEDS: LEVOTHYROXINE 50MCG TABLET (0.05MG) PO (05:30)
[2018-01-29] MEDS: SODIUM CHLORIDE 0.9% INJ 10 ML SYR IV ×2 (05:31→08:39)
[2018-01-29 05:56] LABS: BASO % 0.3 % (0.0-1.0); EOS # 0.1 10^3/uL (0.0-0.50); EOS % 0.7 % (0.0-3.0); HEMATOCRIT 29.6 % (36.0-47.0); HEMOGLOBIN 9.8 g/dl (12.0-15.5); IMMATURE GRANULOCYTE % 0.5 % (0-3.0); LYMPH # 0.7 10^3/uL (1.5-4.5); LYMPH % 9.5 % (24.0-44.0); MEAN CORPUSCULAR HEMOGLOBIN 31.7 pg (27.0-33.0); MEAN CORPUSCULAR HGB CONC 33.1 g/dl (32.0-36.5); MEAN CORPUSCULAR VOLUME 95.8 fl (80.0-96.0); MONO # 0.9 10^3/uL (0.0-0.8); MONO % 11.8 % (0.0-5.0); NEUTROPHILS # 5.9 10^3/uL (1.8-7.7); NEUTROPHILS % 77.2 % (36.0-66.0); PLATELET COUNT, AUTOMATED 389 10^3/uL (150-450); RED BLOOD COUNT 3.09 10^6/uL (4.00-5.40); RED CELL DISTRIBUTION WIDTH 13.9 % (11.5-14.5); WHITE BLOOD COUNT 7.6 10^3/uL (4.0-10.0)
[2018-01-29 06:22] LABS: ALBUMIN 2.1 GM/DL (3.2-5.2); ALBUMIN/GLOBULIN RATIO 0.57 (1.00-1.93); ALKALINE PHOSPHATASE 238 U/L (45-117); ALT/SGPT 121 U/L (12-78); ANION GAP 6 MEQ/L (8-16); AST/SGOT 70 U/L (7-37); BILIRUBIN,TOTAL 0.5 MG/DL (0.2-1.0); BLOOD UREA NITROGEN 14 MG/DL (7-18); CALCIUM LEVEL 7.9 MG/DL (8.8-10.2); CARBON DIOXIDE LEVEL 31 MEQ/L (21-32); CHLORIDE LEVEL 103 MEQ/L (98-107); CREATININE FOR GFR 0.59 MG/DL (0.55-1.30); GLOMERULAR FILTRATION RATE > 60.0 (>39); GLUCOSE, FASTING 114 MG/DL (70-100); POTASSIUM SERUM 4.6 MEQ/L (3.5-5.1); SODIUM LEVEL 140 MEQ/L (136-145); TOTAL PROTEIN 5.8 GM/DL (6.4-8.2)
[2018-01-29] MEDS: OMEPRAZOLE 20 MG CAP PO (08:36)
[2018-01-29] MEDS: ENOXAPARIN 40 MG/0.4 ML SYRINGE (J1650) SC (08:37)
[2018-01-29] MEDS: PREGABALIN 50 MG CAP (LYRICA) PO ×2 (08:37→20:33)
[2018-01-29] MEDS: NYSTATIN 500,000 U/5 ML SUSP UDC SS ×4 (08:37→20:34)
[2018-01-29] MEDS: DICLOFENAC EPOLAMINE 1.3 % PATCH TOP ×2 (08:38→20:34)
[2018-01-29] MEDS: cefTRIAXone SOD 2 GM in D5W MINI-BAG PLUS 50 ML IV (08:44)
[2018-01-29] MEDS: PERCOCET 5MG/325MG TAB PO (08:51)
[2018-01-29] MEDS: LETROZOLE 2.5 MG TAB PO (20:33)
[2018-01-29] MEDS: MOM 30ML SUSPENSION UDC PO (20:34)
[2018-01-30] MEDS: SODIUM CHLORIDE 0.9% INJ 10 ML SYR IV ×2 (05:32→08:41)
[2018-01-30] MEDS: LEVOTHYROXINE 50MCG TABLET (0.05MG) PO (05:32)
[2018-01-30 05:57] LABS: BASO % 0.3 % (0.0-1.0); EOS % 0.3 % (0.0-3.0); HEMATOCRIT 30.9 % (36.0-47.0); HEMOGLOBIN 10.4 g/dl (12.0-15.5); IMMATURE GRANULOCYTE % 0.5 % (0-3.0); LYMPH # 0.7 10^3/uL (1.5-4.5); LYMPH % 8.8 % (24.0-44.0); MEAN CORPUSCULAR HEMOGLOBIN 31.7 pg (27.0-33.0); MEAN CORPUSCULAR HGB CONC 33.7 g/dl (32.0-36.5); MEAN CORPUSCULAR VOLUME 94.2 fl (80.0-96.0); MONO # 0.8 10^3/uL (0.0-0.8); MONO % 10.9 % (0.0-5.0); NEUTROPHILS # 6.1 10^3/uL (1.8-7.7); NEUTROPHILS % 79.2 % (36.0-66.0); PLATELET COUNT, AUTOMATED 426 10^3/uL (150-450); RED BLOOD COUNT 3.28 10^6/uL (4.00-5.40); RED CELL DISTRIBUTION WIDTH 13.8 % (11.5-14.5); WHITE BLOOD COUNT 7.7 10^3/uL (4.0-10.0)
[2018-01-30 06:36] LABS: ALBUMIN 2.3 GM/DL (3.2-5.2); ALBUMIN/GLOBULIN RATIO 0.58 (1.00-1.93); ALKALINE PHOSPHATASE 234 U/L (45-117); ALT/SGPT 103 U/L (12-78); ANION GAP 7 MEQ/L (8-16); AST/SGOT 48 U/L (7-37); BILIRUBIN,TOTAL 0.6 MG/DL (0.2-1.0); BLOOD UREA NITROGEN 9 MG/DL (7-18); CALCIUM LEVEL 8.5 MG/DL (8.8-10.2); CARBON DIOXIDE LEVEL 30 MEQ/L (21-32); CHLORIDE LEVEL 103 MEQ/L (98-107); CREATININE FOR GFR 0.67 MG/DL (0.55-1.30); GLOMERULAR FILTRATION RATE > 60.0 (>39); GLUCOSE, FASTING 127 MG/DL (70-100); POTASSIUM SERUM 4.7 MEQ/L (3.5-5.1); SODIUM LEVEL 140 MEQ/L (136-145); TOTAL PROTEIN 6.3 GM/DL (6.4-8.2)
[2018-01-30] MEDS: PREGABALIN 50 MG CAP (LYRICA) PO ×2 (08:38→21:13)
[2018-01-30] MEDS: NYSTATIN 500,000 U/5 ML SUSP UDC SS ×4 (08:38→21:13)
[2018-01-30] MEDS: OMEPRAZOLE 20 MG CAP PO (08:38)
[2018-01-30] MEDS: ENOXAPARIN 40 MG/0.4 ML SYRINGE (J1650) SC (08:39)
[2018-01-30] MEDS: cefTRIAXone SOD 2 GM in D5W MINI-BAG PLUS 50 ML IV (08:39)
[2018-01-30] MEDS: DICLOFENAC EPOLAMINE 1.3 % PATCH TOP ×2 (09:00→21:14)
[2018-01-30] MEDS: LETROZOLE 2.5 MG TAB PO (21:13)
[2018-01-30] MEDS: PERCOCET 5MG/325MG TAB PO (21:14)
[2018-01-30 21:31] LABS: AMORPHOUS SEDIMENT MODERATE (NEGATIVE); APPEARANCE, URINE CLOUDY (CLEAR); BACTERIA, URINE AUTO NEGATIVE (NEGATIVE); BILIRUBIN, URINE AUTO NEGATIVE (NEGATIVE); BLOOD, URINE BLOOD NEGATIVE (NEGATIVE); COLOR, URINE YELLOW (YELLOW); GLUCOSE, URINE (UA) AUTO NEGATIVE (NEGATIVE); KETONE, URINE AUTO NEGATIVE (NEGATIVE); LEUKOCYTE ESTERASE, URINE AUTO NEGATIVE (NEGATIVE); NITRITE, URINE AUTO NEGATIVE (NEGATIVE); PROTEIN, URINE AUTO NEGATIVE (NEGATIVE); RBC, URINE AUTO 2 /HPF (0-3); SPECIFIC GRAVITY URINE AUTO 1.005 (1.002-1.035); SQUAMOUS EPITHELIAL CELL UR AU 0 /HPF (0-6); UROBILINOGEN, URINE AUTO 0.2 mg/dL (0.0-2.0); WBC, URINE AUTO 1 /HPF (0-3)
[2018-01-31] MEDS: LEVOTHYROXINE 50MCG TABLET (0.05MG) PO (05:45)
[2018-01-31] MEDS: SODIUM CHLORIDE 0.9% INJ 10 ML SYR IV ×2 (05:45→17:06)
[2018-01-31 06:02] LABS: BASO % 0.3 % (0.0-1.0); EOS % 0.5 % (0.0-3.0); HEMATOCRIT 29.4 % (36.0-47.0); HEMOGLOBIN 9.9 g/dl (12.0-15.5); IMMATURE GRANULOCYTE % 0.5 % (0-3.0); LYMPH # 0.6 10^3/uL (1.5-4.5); LYMPH % 9.9 % (24.0-44.0); MEAN CORPUSCULAR HEMOGLOBIN 31.7 pg (27.0-33.0); MEAN CORPUSCULAR HGB CONC 33.7 g/dl (32.0-36.5); MEAN CORPUSCULAR VOLUME 94.2 fl (80.0-96.0); MONO # 0.7 10^3/uL (0.0-0.8); MONO % 11.5 % (0.0-5.0); NEUTROPHILS # 4.6 10^3/uL (1.8-7.7); NEUTROPHILS % 77.3 % (36.0-66.0); PLATELET COUNT, AUTOMATED 427 10^3/uL (150-450); RED BLOOD COUNT 3.12 10^6/uL (4.00-5.40); RED CELL DISTRIBUTION WIDTH 13.8 % (11.5-14.5)
[2018-01-31 06:25] LABS: ALBUMIN 2.2 GM/DL (3.2-5.2); ALBUMIN/GLOBULIN RATIO 0.58 (1.00-1.93); ALKALINE PHOSPHATASE 194 U/L (45-117); ALT/SGPT 89 U/L (12-78); ANION GAP 6 MEQ/L (8-16); AST/SGOT 46 U/L (7-37); BILIRUBIN,TOTAL 0.7 MG/DL (0.2-1.0); BLOOD UREA NITROGEN 9 MG/DL (7-18); CALCIUM LEVEL 8.5 MG/DL (8.8-10.2); CARBON DIOXIDE LEVEL 29 MEQ/L (21-32); CHLORIDE LEVEL 104 MEQ/L (98-107); CREATININE FOR GFR 0.68 MG/DL (0.55-1.30); GLOMERULAR FILTRATION RATE > 60.0 (>39); GLUCOSE, FASTING 122 MG/DL (70-100); POTASSIUM SERUM 4.3 MEQ/L (3.5-5.1); SODIUM LEVEL 139 MEQ/L (136-145)
[2018-01-31] MEDS: cefTRIAXone SOD 2 GM in D5W MINI-BAG PLUS 50 ML IV (10:03)
[2018-01-31] MEDS: OMEPRAZOLE 20 MG CAP PO (10:03)
[2018-01-31] MEDS: NYSTATIN 500,000 U/5 ML SUSP UDC SS ×4 (10:03→20:22)
[2018-01-31] MEDS: PREGABALIN 50 MG CAP (LYRICA) PO ×2 (10:04→20:22)
[2018-01-31] MEDS: ENOXAPARIN 40 MG/0.4 ML SYRINGE (J1650) SC (10:05)
[2018-01-31] MEDS: DICLOFENAC EPOLAMINE 1.3 % PATCH TOP ×2 (10:08→20:22)
[2018-01-31] MEDS: LETROZOLE 2.5 MG TAB PO (20:22)
[2018-02-01] MEDS: SODIUM CHLORIDE 0.9% INJ 10 ML SYR IV ×2 (05:13→17:27)
[2018-02-01] MEDS: LEVOTHYROXINE 50MCG TABLET (0.05MG) PO (05:14)
[2018-02-01 05:30] LABS: BASO % 0.4 % (0.0-1.0); EOS % 0.3 % (0.0-3.0); HEMATOCRIT 32.6 % (36.0-47.0); HEMOGLOBIN 10.7 g/dl (12.0-15.5); IMMATURE GRANULOCYTE % 0.4 % (0-3.0); LYMPH # 0.9 10^3/uL (1.5-4.5); LYMPH % 12.2 % (24.0-44.0); MEAN CORPUSCULAR HEMOGLOBIN 31.3 pg (27.0-33.0); MEAN CORPUSCULAR HGB CONC 32.8 g/dl (32.0-36.5); MEAN CORPUSCULAR VOLUME 95.3 fl (80.0-96.0); MONO # 0.8 10^3/uL (0.0-0.8); MONO % 10.9 % (0.0-5.0); NEUTROPHILS # 5.5 10^3/uL (1.8-7.7); NEUTROPHILS % 75.8 % (36.0-66.0); PLATELET COUNT, AUTOMATED 516 10^3/uL (150-450); RED BLOOD COUNT 3.42 10^6/uL (4.00-5.40); RED CELL DISTRIBUTION WIDTH 13.6 % (11.5-14.5); WHITE BLOOD COUNT 7.2 10^3/uL (4.0-10.0)
[2018-02-01 05:52] LABS: ANION GAP 7 MEQ/L (8-16); BLOOD UREA NITROGEN 9 MG/DL (7-18); CALCIUM LEVEL 8.5 MG/DL (8.8-10.2); CARBON DIOXIDE LEVEL 28 MEQ/L (21-32); CHLORIDE LEVEL 103 MEQ/L (98-107); GLOMERULAR FILTRATION RATE > 60.0 (>39); GLUCOSE, FASTING 130 MG/DL (70-100); POTASSIUM SERUM 4.6 MEQ/L (3.5-5.1); SODIUM LEVEL 138 MEQ/L (136-145)
[2018-02-01] MEDS: OMEPRAZOLE 20 MG CAP PO (09:01)
[2018-02-01] MEDS: NYSTATIN 500,000 U/5 ML SUSP UDC SS ×4 (09:01→20:05)
[2018-02-01] MEDS: PREGABALIN 50 MG CAP (LYRICA) PO ×2 (09:01→20:05)
[2018-02-01] MEDS: DICLOFENAC EPOLAMINE 1.3 % PATCH TOP ×2 (09:02→20:06)
[2018-02-01] MEDS: cefTRIAXone SOD 2 GM in D5W MINI-BAG PLUS 50 ML IV (09:02)
[2018-02-01] MEDS: ENOXAPARIN 40 MG/0.4 ML SYRINGE (J1650) SC (09:02)
[2018-02-01] MEDS: LETROZOLE 2.5 MG TAB PO (20:05)
[2018-02-02] MEDS: SODIUM CHLORIDE 0.9% INJ 10 ML SYR IV ×3 (06:02→17:24)
[2018-02-02] MEDS: LEVOTHYROXINE 50MCG TABLET (0.05MG) PO (06:03)
[2018-02-02] MEDS: cefTRIAXone SOD 2 GM in D5W MINI-BAG PLUS 50 ML IV (08:21)
[2018-02-02] MEDS: ENOXAPARIN 40 MG/0.4 ML SYRINGE (J1650) SC (08:22)
[2018-02-02] MEDS: NYSTATIN 500,000 U/5 ML SUSP UDC SS ×4 (08:22→21:43)
[2018-02-02] MEDS: PREGABALIN 50 MG CAP (LYRICA) PO ×2 (08:22→21:43)
[2018-02-02] MEDS: OMEPRAZOLE 20 MG CAP PO (08:22)
[2018-02-02] MEDS: DICLOFENAC EPOLAMINE 1.3 % PATCH TOP ×2 (08:22→21:43)
[2018-02-02] MEDS: PERCOCET 5MG/325MG TAB PO (12:32)
[2018-02-02 12:53] LABS: HEMATOCRIT 29.6 % (36.0-47.0); HEMOGLOBIN 9.7 g/dl (12.0-15.5); MEAN CORPUSCULAR HEMOGLOBIN 31.4 pg (27.0-33.0); MEAN CORPUSCULAR HGB CONC 32.8 g/dl (32.0-36.5); MEAN CORPUSCULAR VOLUME 95.8 fl (80.0-96.0); PLATELET COUNT, AUTOMATED 456 10^3/uL (150-450); RED BLOOD COUNT 3.09 10^6/uL (4.00-5.40); RED CELL DISTRIBUTION WIDTH 13.4 % (11.5-14.5); WHITE BLOOD COUNT 5.2 10^3/uL (4.0-10.0)
[2018-02-02 16:48] LABS: ALBUMIN 2.2 GM/DL (3.2-5.2); ALBUMIN/GLOBULIN RATIO 0.56 (1.00-1.93); ALKALINE PHOSPHATASE 179 U/L (45-117); ALT/SGPT 117 U/L (12-78); ANION GAP 8 MEQ/L (8-16); AST/SGOT 64 U/L (7-37); BILIRUBIN,TOTAL 0.4 MG/DL (0.2-1.0); BLOOD UREA NITROGEN 12 MG/DL (7-18); CALCIUM LEVEL 8.8 MG/DL (8.8-10.2); CARBON DIOXIDE LEVEL 28 MEQ/L (21-32); CHLORIDE LEVEL 104 MEQ/L (98-107); CREATININE FOR GFR 0.72 MG/DL (0.55-1.30); GLOMERULAR FILTRATION RATE > 60.0 (>39); GLUCOSE, FASTING 122 MG/DL (70-100); POTASSIUM SERUM 4.2 MEQ/L (3.5-5.1); SODIUM LEVEL 140 MEQ/L (136-145); TOTAL PROTEIN 6.1 GM/DL (6.4-8.2)
[2018-02-02] MEDS: LETROZOLE 2.5 MG TAB PO (21:43)
[2018-02-03] MEDS: NORCO, ANEXSIA 5/325MG TABLET (HYDROcodone/ACETAMINOPHEN) PO (01:39)
[2018-02-03] MEDS: SODIUM CHLORIDE 0.9% INJ 10 ML SYR IV ×2 (05:29→17:40)
[2018-02-03] MEDS: LEVOTHYROXINE 50MCG TABLET (0.05MG) PO (05:30)
[2018-02-03 05:32] LABS: HEMATOCRIT 28.4 % (36.0-47.0); HEMOGLOBIN 9.4 g/dl (12.0-15.5); MEAN CORPUSCULAR HGB CONC 33.1 g/dl (32.0-36.5); MEAN CORPUSCULAR VOLUME 93.7 fl (80.0-96.0); PLATELET COUNT, AUTOMATED 417 10^3/uL (150-450); RED BLOOD COUNT 3.03 10^6/uL (4.00-5.40); RED CELL DISTRIBUTION WIDTH 13.2 % (11.5-14.5); WHITE BLOOD COUNT 4.3 10^3/uL (4.0-10.0)
[2018-02-03 05:57] LABS: ALBUMIN 2.1 GM/DL (3.2-5.2); ALBUMIN/GLOBULIN RATIO 0.55 (1.00-1.93); ALKALINE PHOSPHATASE 166 U/L (45-117); ALT/SGPT 104 U/L (12-78); ANION GAP 8 MEQ/L (8-16); AST/SGOT 65 U/L (7-37); BILIRUBIN,TOTAL 0.5 MG/DL (0.2-1.0); BLOOD UREA NITROGEN 16 MG/DL (7-18); CALCIUM LEVEL 8.5 MG/DL (8.8-10.2); CARBON DIOXIDE LEVEL 28 MEQ/L (21-32); CHLORIDE LEVEL 105 MEQ/L (98-107); CREATININE FOR GFR 0.83 MG/DL (0.55-1.30); GLOMERULAR FILTRATION RATE > 60.0 (>39); GLUCOSE, FASTING 114 MG/DL (70-100); SODIUM LEVEL 141 MEQ/L (136-145); TOTAL PROTEIN 5.9 GM/DL (6.4-8.2)
[2018-02-03] MEDS: NYSTATIN 500,000 U/5 ML SUSP UDC SS ×3 (09:13→17:00)
[2018-02-03] MEDS: OMEPRAZOLE 20 MG CAP PO (09:13)
[2018-02-03] MEDS: PREGABALIN 50 MG CAP (LYRICA) PO (09:13)
[2018-02-03] MEDS: DICLOFENAC EPOLAMINE 1.3 % PATCH TOP (09:13)
[2018-02-03] MEDS: ENOXAPARIN 40 MG/0.4 ML SYRINGE (J1650) SC (09:14)
[2018-02-03] MEDS: cefTRIAXone SOD 2 GM in D5W MINI-BAG PLUS 50 ML IV (09:15)
[2018-02-03] MEDS: PERCOCET 5MG/325MG TAB PO (09:25)
== END 2018-02-03 17:59 | disposition home health service (06) | DRG 854 ==
LOC: M MSPAV 13:31
PROC: 0SBC0ZZ Excision of Right Knee Joint, Open Approach (ICD-10-PCS; principal; 2018-01-26 16:00)
PROC: 0S9D3ZX Drainage of Left Knee Joint, Percutaneous Approach, Diagnostic (ICD-10-PCS; 2018-01-26 17:07)
PROC: 02HV33Z Insertion of Infusion Device into Superior Vena Cava, Percutaneous Approach (ICD-10-PCS; 2018-01-26 17:07)
DX: A41.89 Other specified sepsis (principal); M00.861 Arthritis due to other bacteria, right knee; Z68.41 Body mass index [BMI] 40.0-44.9, adult; L03.116 Cellulitis of left lower limb; B37.0 Candidal stomatitis; J47.9 Bronchiectasis, uncomplicated; R60.0 Localized edema; M47.26 Other spondylosis with radiculopathy, lumbar region; L30.8 Other specified dermatitis; R79.89 Other specified abnormal findings of blood chemistry; D47.2 Monoclonal gammopathy; R73.01 Impaired fasting glucose; M65.861 Other synovitis and tenosynovitis, right lower leg; E03.9 Hypothyroidism, unspecified; M85.80 Other specified disorders of bone density and structure, unspecified site; C50.211 Malignant neoplasm of upper-inner quadrant of right female breast; M17.0 Bilateral primary osteoarthritis of knee; I10 Essential (primary) hypertension; D72.819 Decreased white blood cell count, unspecified; E78.2 Mixed hyperlipidemia; E66.01 Morbid (severe) obesity due to excess calories; E55.9 Vitamin D deficiency, unspecified; Z88.6 Allergy status to analgesic agent; Z79.82 Long term (current) use of aspirin; Z79.899 Other long term (current) drug therapy; K21.9 Gastro-esophageal reflux disease without esophagitis

== ENCOUNTER → 2018-02-06 | Outpatient (CLI) | payer MEDICARE, OTHER ==
[2018-02-06 11:01] LABS: BASO % 0.7 % (0.0-1.0); EOS % 0.7 % (0.0-3.0); HEMATOCRIT 33.2 % (36.0-47.0); HEMOGLOBIN 10.8 g/dl (12.0-15.5); IMMATURE GRANULOCYTE % 0.2 % (0-3.0); LYMPH # 0.6 10^3/uL (1.5-4.5); LYMPH % 15.2 % (24.0-44.0); MEAN CORPUSCULAR HEMOGLOBIN 30.9 pg (27.0-33.0); MEAN CORPUSCULAR HGB CONC 32.5 g/dl (32.0-36.5); MEAN CORPUSCULAR VOLUME 95.1 fl (80.0-96.0); MONO # 0.4 10^3/uL (0.0-0.8); MONO % 8.9 % (0.0-5.0); NEUTROPHILS # 3.1 10^3/uL (1.8-7.7); NEUTROPHILS % 74.3 % (36.0-66.0); PLATELET COUNT, AUTOMATED 428 10^3/uL (150-450); RED BLOOD COUNT 3.49 10^6/uL (4.00-5.40); RED CELL DISTRIBUTION WIDTH 13.2 % (11.5-14.5); WHITE BLOOD COUNT 4.2 10^3/uL (4.0-10.0)
[2018-02-06 11:17] LABS: C REACTIVE PROTEIN QUANTITATIV 7.53 MG/DL (0.00-0.30)
== END ==
LOC: M WUC 09:11
DX: M00.9 Pyogenic arthritis, unspecified (principal)
CPT/HCPCS: 86140

== ENCOUNTER → 2018-02-09 | Outpatient (REF) | payer MEDICARE, OTHER ==
[2018-02-09 16:19] LABS: BASO % 0.4 % (0.0-1.0); EOS # 0.1 10^3/uL (0.0-0.50); EOS % 1.3 % (0.0-3.0); HEMOGLOBIN 11.1 g/dl (12.0-15.5); IMMATURE GRANULOCYTE % 0.4 % (0-3.0); LYMPH # 0.7 10^3/uL (1.5-4.5); LYMPH % 13.8 % (24.0-44.0); MEAN CORPUSCULAR HEMOGLOBIN 30.9 pg (27.0-33.0); MEAN CORPUSCULAR HGB CONC 31.7 g/dl (32.0-36.5); MEAN CORPUSCULAR VOLUME 97.5 fl (80.0-96.0); MONO # 0.5 10^3/uL (0.0-0.8); MONO % 9.4 % (0.0-5.0); NEUTROPHILS # 3.6 10^3/uL (1.8-7.7); NEUTROPHILS % 74.7 % (36.0-66.0); PLATELET COUNT, AUTOMATED 369 10^3/uL (150-450); RED BLOOD COUNT 3.59 10^6/uL (4.00-5.40); RED CELL DISTRIBUTION WIDTH 13.2 % (11.5-14.5); WHITE BLOOD COUNT 4.8 10^3/uL (4.0-10.0)
[2018-02-09 16:24] LABS: C REACTIVE PROTEIN QUANTITATIV 4.73 MG/DL (0.00-0.30)
== END ==
LOC: M SHH 15:21
DX: M00.9 Pyogenic arthritis, unspecified (principal)
CPT/HCPCS: 86140

== ENCOUNTER → 2018-02-16 | Outpatient (REF) | payer MEDICARE, OTHER ==
[2018-02-16 14:54] LABS: BASO % 0.4 % (0.0-1.0); EOS % 0.4 % (0.0-3.0); HEMATOCRIT 35.1 % (36.0-47.0); HEMOGLOBIN 11.6 g/dl (12.0-15.5); IMMATURE GRANULOCYTE % 0.2 % (0-3.0); LYMPH # 0.8 10^3/uL (1.5-4.5); LYMPH % 16.6 % (24.0-44.0); MEAN CORPUSCULAR HEMOGLOBIN 31.4 pg (27.0-33.0); MEAN CORPUSCULAR VOLUME 95.1 fl (80.0-96.0); MONO # 0.4 10^3/uL (0.0-0.8); MONO % 8.6 % (0.0-5.0); NEUTROPHILS # 3.4 10^3/uL (1.8-7.7); NEUTROPHILS % 73.8 % (36.0-66.0); PLATELET COUNT, AUTOMATED 317 10^3/uL (150-450); RED BLOOD COUNT 3.69 10^6/uL (4.00-5.40); RED CELL DISTRIBUTION WIDTH 13.4 % (11.5-14.5); WHITE BLOOD COUNT 4.7 10^3/uL (4.0-10.0)
[2018-02-16 15:00] LABS: ALBUMIN/GLOBULIN RATIO 0.73 (1.00-1.93); ALKALINE PHOSPHATASE 148 U/L (45-117); ALT/SGPT 27 U/L (12-78); ANION GAP 7 MEQ/L (8-16); AST/SGOT 17 U/L (7-37); BILIRUBIN,TOTAL 0.3 MG/DL (0.2-1.0); BLOOD UREA NITROGEN 15 MG/DL (7-18); C REACTIVE PROTEIN QUANTITATIV 1.78 MG/DL (0.00-0.30); CALCIUM LEVEL 9.2 MG/DL (8.8-10.2); CARBON DIOXIDE LEVEL 30 MEQ/L (21-32); CHLORIDE LEVEL 104 MEQ/L (98-107); CREATININE FOR GFR 0.77 MG/DL (0.55-1.30); GLOMERULAR FILTRATION RATE > 60.0 (>39); GLUCOSE, FASTING 126 MG/DL (70-100); POTASSIUM SERUM 4.3 MEQ/L (3.5-5.1); SODIUM LEVEL 141 MEQ/L (136-145); TOTAL PROTEIN 7.1 GM/DL (6.4-8.2)
== END ==
LOC: M LAB REF 14:22
DX: M00.9 Pyogenic arthritis, unspecified (principal)
CPT/HCPCS: 80053

== ENCOUNTER → 2018-03-03 | Outpatient (REF) | payer MEDICARE, OTHER ==
[2018-03-03 17:49] LABS: C REACTIVE PROTEIN QUANTITATIV 0.96 MG/DL (0.00-0.30)
[2018-03-03 20:16] LABS: BASO % 0.5 % (0.0-1.0); EOS % 0.9 % (0.0-3.0); HEMATOCRIT 35.5 % (36.0-47.0); HEMOGLOBIN 11.2 g/dl (12.0-15.5); IMMATURE GRANULOCYTE % 0.5 % (0-3.0); LYMPH # 0.8 10^3/uL (1.5-4.5); LYMPH % 18.6 % (24.0-44.0); MEAN CORPUSCULAR HEMOGLOBIN 30.4 pg (27.0-33.0); MEAN CORPUSCULAR HGB CONC 31.5 g/dl (32.0-36.5); MEAN CORPUSCULAR VOLUME 96.2 fl (80.0-96.0); MONO # 0.4 10^3/uL (0.0-0.8); MONO % 9.3 % (0.0-5.0); NEUTROPHILS % 70.2 % (36.0-66.0); PLATELET COUNT, AUTOMATED 252 10^3/uL (150-450); RED BLOOD COUNT 3.69 10^6/uL (4.00-5.40); RED CELL DISTRIBUTION WIDTH 13.9 % (11.5-14.5); WHITE BLOOD COUNT 4.3 10^3/uL (4.0-10.0)
[2018-03-03 22:16] LABS: ERYTHROCYTE SEDIMENTATION RATE 54 mm/hr (0-30)
[2018-03-06 00:07] LABS: CYCLIC CITRULLINATED PEPTIDE 42 units (0-19)
== END ==
LOC: M SFHCPLAZ 16:55
DX: M00.9 Pyogenic arthritis, unspecified (principal)
CPT/HCPCS: 86140

== ENCOUNTER → 2018-03-10 | Outpatient (CLI) | payer MEDICARE, OTHER | LOC: M WHC 13:37 | DX: M00.9 Pyogenic arthritis, unspecified (principal); A49.1 Streptococcal infection, unspecified site | CPT/HCPCS: 76830 ==

== ENCOUNTER → 2018-03-11 | Outpatient (REF) | payer MEDICARE, OTHER ==
[2018-03-11 15:33] LABS: ERYTHROCYTE SEDIMENTATION RATE 43 mm/hr (0-30)
[2018-03-11 15:37] LABS: ALBUMIN 3.3 GM/DL (3.2-5.2); ALBUMIN/GLOBULIN RATIO 0.89 (1.00-1.93); ALKALINE PHOSPHATASE 124 U/L (45-117); ALT/SGPT 21 U/L (12-78); ANION GAP 10 MEQ/L (8-16); AST/SGOT 19 U/L (7-37); BILIRUBIN,TOTAL 0.5 MG/DL (0.2-1.0); BLOOD UREA NITROGEN 12 MG/DL (7-18); C REACTIVE PROTEIN QUANTITATIV 0.33 MG/DL (0.00-0.30); CALCIUM LEVEL 9.2 MG/DL (8.8-10.2); CARBON DIOXIDE LEVEL 28 MEQ/L (21-32); CHLORIDE LEVEL 105 MEQ/L (98-107); CREATININE FOR GFR 0.76 MG/DL (0.55-1.30); GLOMERULAR FILTRATION RATE > 60.0 (>39); GLUCOSE, FASTING 114 MG/DL (70-100); SODIUM LEVEL 143 MEQ/L (136-145)
== END ==
LOC: M SHH 15:06
DX: R94.5 Abnormal results of liver function studies (principal)
CPT/HCPCS: 80053

== ENCOUNTER → 2018-05-05 | Outpatient (CLI) | payer MEDICARE, OTHER | LOC: M WHC 11:42 | DX: M85.80 Other specified disorders of bone density and structure, unspecified site (principal); Z78.0 Asymptomatic menopausal state; Z79.811 Long term (current) use of aromatase inhibitors | CPT/HCPCS: 77080 ==

== ENCOUNTER → 2018-06-10 | Outpatient (CLI) | payer MEDICARE, OTHER ==
[2018-06-10 14:14] LABS: ALBUMIN 3.8 GM/DL (3.2-5.2); ALBUMIN/GLOBULIN RATIO 1.06 (1.00-1.93); ALKALINE PHOSPHATASE 123 U/L (45-117); ALT/SGPT 21 U/L (12-78); ANION GAP 7 MEQ/L (8-16); AST/SGOT 22 U/L (7-37); BILIRUBIN,TOTAL 0.6 MG/DL (0.2-1.0); BLOOD UREA NITROGEN 22 MG/DL (7-18); C REACTIVE PROTEIN QUANTITATIV < 0.30 MG/DL (0.00-0.30); CALCIUM LEVEL 8.8 MG/DL (8.8-10.2); CARBON DIOXIDE LEVEL 30 MEQ/L (21-32); CHLORIDE LEVEL 103 MEQ/L (98-107); CREATININE FOR GFR 0.84 MG/DL (0.55-1.30); GLOMERULAR FILTRATION RATE > 60.0 (>39); GLUCOSE, FASTING 86 MG/DL (70-100); NT-PRO BNP 166 PG/ML (<450); POTASSIUM SERUM 4.2 MEQ/L (3.5-5.1); SODIUM LEVEL 140 MEQ/L (136-145); TOTAL PROTEIN 7.4 GM/DL (6.4-8.2)
[2018-06-10 14:17] LABS: TOTAL 25(OH) VITAMIN D 64.7 NG/ML (30.0-100.0)
[2018-06-10 15:40] LABS: ESTIMATED AVERAGE GLUCOSE 120 MG/DL (60-110); HEMOGLOBIN A1c 5.8 %
[2018-06-14 00:07] LABS: FREE KAPPA LIGHT CHAINS SERUM 19.8 mg/L (3.3-19.4); FREE LAMBDA LIGHT CHAINS SERUM 11.2 mg/L (5.7-26.3); INSULIN LEVEL 9.6 uIU/mL (2.6-24.9); KAPPA/LAMBDA RATIO SERUM 1.77 (0.26-1.65)
[2018-06-14 00:07] LABS: CYCLIC CITRULLINATED PEPTIDE 48 units (0-19)
== END ==
LOC: M WUC 10:40
DX: R76.8 Other specified abnormal immunological findings in serum (principal); I10 Essential (primary) hypertension; D47.2 Monoclonal gammopathy; R73.01 Impaired fasting glucose; E55.9 Vitamin D deficiency, unspecified
CPT/HCPCS: 83525

== ENCOUNTER → 2018-06-11 | Outpatient (REF) | payer MEDICARE, OTHER ==
[~2018-06-11] MED LIST changes: -ACETAMINOPHEN 500 MG TAB PO; +ALBU17IN2 INH; +AMOX875T PO; +ASPI1TAB PO; +AVEL1TAB3 PO; +CALC1CAP31 PO; +CALC600T57 PO; +CALC600T6 PO; +CALCTAB68 PO; +CEFD1CAP8 PO; +CENTTAB47 PO; +CYCL10TA PO; +DICL13PA TOP; +DICL1GEL TOP; +GLUC15002 PO; +GLUC1CAP10 PO; +IBUP-1022 PO; +KETO2AER2 EX; +KETO2CR EXT; +LETR2.5T2 PO; +LEVO50TA45 PO; +MUCI600T31 PO; +NABU-119 PO; +NORCOTAB PO; +NYST10CR EXT; +OMEP40CA2 PO; -ONDANSETRON 4MG/2ML VIAL (J2405) IV; +OPCOSOL OU; +PRED20TA PO; +PREG50CA PO; +PROBCAP4 PO; +SILV40CR EXT; +VICO5TAB16 PO; +VITA200015 PO; +VITATAB73 PO; +VITMTA PO
[2018-06-11 17:00] LABS: APPEARANCE, URINE HAZY (CLEAR); BACTERIA, URINE AUTO NEGATIVE (NEGATIVE); BILIRUBIN, URINE AUTO NEGATIVE (NEGATIVE); BLOOD, URINE BLOOD NEGATIVE (NEGATIVE); CALCIUM OXALATE CRYSTALS SMALL; COLOR, URINE YELLOW (YELLOW); GLUCOSE, URINE (UA) AUTO NEGATIVE (NEGATIVE); KETONE, URINE AUTO NEGATIVE (NEGATIVE); LEUKOCYTE ESTERASE, URINE AUTO NEGATIVE (NEGATIVE); MUCUS, URINE SMALL (NEGATIVE); NITRITE, URINE AUTO NEGATIVE (NEGATIVE); PROTEIN, URINE AUTO NEGATIVE (NEGATIVE); RBC, URINE AUTO 1 /HPF (0-3); SPECIFIC GRAVITY URINE AUTO 1.017 (1.002-1.035); SQUAMOUS EPITHELIAL CELL UR AU 0 /HPF (0-6); UROBILINOGEN, URINE AUTO 0.2 mg/dL (0.0-2.0); WBC, URINE AUTO 4 /HPF (0-3)
[2018-06-11 17:39] LABS: MALB URINE SIEMENS 5.6 MG/L
[2018-06-11 18:44] LABS: MAU/CREAT RATIO 5.3 MCG/MG (0.0-30.0)
[2018-06-15 08:15] LABS: FREE KAPPA LIGHT CHAINS URINE 7.54 mg/L (1.35-24.19); FREE LAMBDA LIGHT CHAINS URINE 0.47 mg/L (0.24-6.66); KAPPA/LAMBDA RATIO URINE 16.04 (2.04-10.37)
== END ==
LOC: M SFHCPLAZ 09:32
PROVIDERS: ATTEND Family Medicine
DX: E55.9 Vitamin D deficiency, unspecified (principal); R73.01 Impaired fasting glucose; D47.2 Monoclonal gammopathy; I10 Essential (primary) hypertension

== ENCOUNTER 2018-07-06 10:10 | Day surgery (SDC) | payer MEDICARE, OTHER ==
[~2018-07-06] VITALS: Ht 157.5 cm; Wt 105.7 kg
[~2018-07-06 10:10] MED LIST changes: +NS 1,000 ML IV ONE
[2018-07-06] MEDS ORDERED: LIDOCAINE 2% INJ 100 MG/5 ML SDV (FOR ANES.) As Ordered ONE (11:55)
[2018-07-06] MEDS ORDERED: PROPOFOL 200 MG/20 ML VIAL As Ordered ONE (11:55)
--- NOTE | 2018-07-06 12:04 | ROOR ---
Patient Name: Yenny Jaimes Procedure Date: 07/06/2018 11:30 AM Date of : 1945 Age: 73 Room: [facility] [place] Gender: Female Note Status: Finalized Procedure: Total Colonoscopy to Cecum Indications: High risk colon cancer surveillance: Personal history of colonic polyps, Last colonoscopy: 2014 Providers: Ab Mueller MD Referring MD: Owen Avila MD Requesting Provider: Medicines: Monitored Anesthesia Care Complications: No immediate complications. Procedure: Pre-Anesthesia Assessment: - The heart rate, respiratory rate, oxygen saturations, blood pressure, adequacy of pulmonary ventilation, and response to care were monitored throughout the procedure. The Colonoscope was introduced through the anus and advanced to the cecum, identified by appendiceal orifice and ileocecal valve. The colonoscopy was performed without difficulty. The patient tolerated the procedure well. The quality of the bowel preparation was excellent. Findings: The perianal and digital rectal examinations were normal. Non-bleeding internal hemorrhoids were found during retroflexion. The hemorrhoids were mild and Grade I (internal hemorrhoids that do not prolapse). Multiple small and large-mouthed diverticula were found in the recto-sigmoid colon, sigmoid colon and descending colon. The exam was otherwise without abnormality on direct and retroflexion views. Impression: - Non-bleeding internal hemorrhoids. - Diverticulosis in the recto-sigmoid colon, in the sigmoid colon and in the descending colon. - The examination was otherwise normal on direct and retroflexion views. - No specimens collected. - The exam was otherwise normal to the cecum. Recommendation: - Patient has a contact number available for emergencies. The signs and symptoms of potential delayed complications were discussed with the patient. Return to normal activities tomorrow. Written discharge instructions were provided to the patient. - High fiber diet. - Discharge patient to home. - Continue present medications. - Repeat colonoscopy for symptoms only. - Return to referring physician. - The findings and recommendations were discussed with the patient's family. Ab Mueller MD Ab Mueller MD 07/06/2018 12:03:46 PM This report has been signed electronically. Number of Addenda: 0 Note Initiated On: 07/06/2018 11:30 AM Estimated Blood Loss: Estimated blood loss: none.
[2018-07-06 12:25] VITALS: BP 157/74
== END 2018-07-06 12:50 | disposition home or self-care (01) ==
LOC: M OPP 10:10
PROVIDERS: ATTEND Internal Medicine Gastroenterology
DX: Z86.010 Personal history of colon polyps (principal); K64.0 First degree hemorrhoids; K57.30 Diverticulosis of large intestine without perforation or abscess without bleeding; K21.9 Gastro-esophageal reflux disease without esophagitis; E03.9 Hypothyroidism, unspecified; Z79.82 Long term (current) use of aspirin; Z79.899 Other long term (current) drug therapy; Z88.5 Allergy status to narcotic agent; Z85.3 Personal history of malignant neoplasm of breast; Z87.891 Personal history of nicotine dependence

== ENCOUNTER → 2018-09-26 | Outpatient (REF) | payer MEDICARE, OTHER ==
[~2018-09-26] MED LIST changes: -ASPI1TAB PO; +ASPI81TA26 PO; +HYDR-3715 PO; -KETO2CR EXT; +KETO2CRE EXT; -NORCOTAB PO; -NS 1,000 ML IV ONE; -VICO5TAB16 PO; +VICO5TAB17 PO
[2018-09-26 12:28] LABS: BASO % 0.3 % (0.0-1.0); EOS % 1.1 % (0.0-3.0); HEMATOCRIT 41.7 % (36.0-47.0); HEMOGLOBIN 13.8 g/dl (12.0-15.5); LYMPH # 0.9 10^3/uL (1.5-4.5); MEAN CORPUSCULAR HEMOGLOBIN 31.9 pg (27.0-33.0); MEAN CORPUSCULAR HGB CONC 33.1 g/dl (32.0-36.5); MEAN CORPUSCULAR VOLUME 96.5 fl (80.0-96.0); MONO # 0.4 10^3/uL (0.0-0.8); MONO % 9.8 % (0.0-5.0); NEUTROPHILS # 2.4 10^3/uL (1.8-7.7); NEUTROPHILS % 65.5 % (36.0-66.0); PLATELET COUNT, AUTOMATED 199 10^3/uL (150-450); RED BLOOD COUNT 4.32 10^6/uL (4.00-5.40); WHITE BLOOD COUNT 3.7 10^3/uL (4.0-10.0)
[2018-09-26 12:50] LABS: ERYTHROCYTE SEDIMENTATION RATE 7 mm/hr (0-30)
[2018-09-26 12:57] LABS: ALBUMIN 3.9 GM/DL (3.2-5.2); ALT/SGPT 23 U/L (12-78); BILIRUBIN,TOTAL 0.7 MG/DL (0.2-1.0); BLOOD UREA NITROGEN 25 MG/DL (7-18); C REACTIVE PROTEIN QUANTITATIV < 0.30 MG/DL (0.00-0.30); CARBON DIOXIDE LEVEL 30 MEQ/L (21-32); CHLORIDE LEVEL 105 MEQ/L (98-107); CHOLESTEROL LEVEL 241 MG/DL (<200); CHOLESTEROL RISK RATIO 3.213 (<5); CREATININE FOR GFR 0.92 MG/DL (0.55-1.30); FREE T4 1.56 NG/DL (0.76-1.46); GLOMERULAR FILTRATION RATE > 60.0 (>39); GLUCOSE, FASTING 103 MG/DL (70-100); HDL CHOLESTEROL 75 MG/DL (>40); LDL CHOLESTEROL 146 MG/DL (<100); NON-HDL-C 166 MG/DL; POTASSIUM SERUM 4.4 MEQ/L (3.5-5.1); SODIUM LEVEL 141 MEQ/L (136-145); TOTAL PROTEIN 7.5 GM/DL (6.4-8.2); TRIGLYCERIDES LEVEL 98 MG/DL (<150)
[2018-09-27 10:17] LABS: ALBUMIN 4.49 GM/DL (3.29-5.55); ALBUMIN % 59.9 % (55.8-66.1); ALPHA-1-GLOBULIN % 4.1 % (2.9-4.9); ALPHA-1-GLOBULINS 0.31 GM/DL (0.17-0.41); ALPHA-2-GLOBULINS 0.71 GM/DL (0.42-0.99); ALPHA-2-GLOBULINS % 9.5 % (7.1-11.8); BETA-1-GLOBULINS 0.38 GM/DL (0.28-0.60); BETA-2-GLOBULINS 0.32 GM/DL (0.19-0.55); BETA-2-GLOBULINS % 4.2 % (3.2-6.5); GAMMA GLOBULIN % 17.3 % (11.1-18.8)
== END ==
LOC: M SFHCPLAZ 10:04
PROVIDERS: ATTEND Family Medicine
DX: D47.2 Monoclonal gammopathy (principal); E03.9 Hypothyroidism, unspecified; E78.2 Mixed hyperlipidemia
CPT/HCPCS: 36415; 80053; 80061; 84165; 84439; 84443; 85025; 85652; 86140; G0463

== ENCOUNTER → 2018-12-28 | Outpatient (CLI) | payer MEDICARE, OTHER ==
[~2018-12-28] MED LIST changes: +ALEN70TA74 PO; +CITRTAB18 PO; +KETO0.3S OS; +PHILCAP4 PO; +PREDOPD OS
--- NOTE | 2018-12-28 10:27 | REPMRS ---
Patient History The patient states she had a clinical breast exam in August 2018. Family history of breast cancer at age 50 or over in maternal grandmother, colorectal cancer at age 50 or over in paternal grandmother. Malignant radio exam breast specimen, January 28, 2017. Malignant localization of breast nodule of the right breast, January 28, 2017. Malignant US guided breast biopsy of the right breast, January 13, 2017. Taking tamoxifen for 1 month. 3D TOMOSYNTHESIS WAS PERFORMED. Digital Mammo Screening Bilat: December 28, 2018 - Exam #: [id number] Bilateral CC and MLO view(s) were taken. Technologist: Emma Aleman, Technologist Prior study comparison: December 27, 2017, bilateral digital mammo screening bilat performed at [facility]. June 29, 2017, left breast digital mammo diagnostic unilateral performed at [facility]. FINDINGS: The breast tissue is heterogeneously dense. This may lower the sensitivity of mammography. There has been no change in the appearance of the mammogram from the prior studies. There is a moderate amount of residual fibroglandular tissue which is fairly symmetric. There is no interval development of dominant mass, areas of architectural distortion, or clustered microcalcification typical of malignancy. Assessment: BI-RADS/ACR category 1 mammogram. Negative Mammogram. Recommendation Routine screening mammogram in 1 year (for women over age 40). This mammogram was interpreted with the aid of an FDA-approved computer-aided dectection system. Electronically Signed By: Nish Wu MD 12/28/18 [id number]
== END ==
LOC: M RAD 09:46
PROVIDERS: ATTEND Nurse Practitioner Family
DX: Z12.31 Encounter for screening mammogram for malignant neoplasm of breast (principal); Z86.018 Personal history of other benign neoplasm

== ENCOUNTER → 2019-01-04 | Outpatient (CLI) | payer MEDICARE, OTHER ==
--- NOTE | 2019-01-05 10:15 | RADONC ---
RADIATION ONCOLOGY FOLLOWUP NOTE: DATE: 01/04/2019 CHART NUMBER: [id number] DIAGNOSIS: Right breast cancer. STAGE: I A, T1c, N0, M0 ECOG PERFORMANCE STATUS: 0. Ms. 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 The patient presents today reporting that she is doing quite well with no complaints at this time related to her radiation therapy or disease. She has no breast or bone pain. REVIEW OF SYSTEMS: The patient's review of systems is noncontributory. She denies nausea, vomiting, fevers, chills, night sweats, diplopia, headaches, anxiety or depression, anorexia, weight loss, visual disturbances, chest pain, urinary or bowel difficulties, bone pain, or neurological problems. PHYSICAL EXAMINATION: The patient is a well-developed, well-nourished female in no acute distress. HEENT exam is normocephalic, atraumatic. Extraocular movements are intact. There is no palpable cervical, supraclavicular, infraclavicular, axillary, or inguinal lymphadenopathy present. Lungs are clear to auscultation and percussion. Heart has a regular rate and rhythm. Abdomen is benign with no hepatosplenomegaly, masses, or tenderness. Breast examination reveals no masses or discharge bilaterally. Skeletal examination reveals no tenderness to pressure or percussion of the bony skeleton. Extremities reveal no clubbing, cyanosis, or edema. Neurologic exam is grossly intact, as is the remainder of the physical examination. ASSESSMENT: The patient is clinically GONZALO at this time. A mammogram was done on December 28, 2018 and showed no evidence of malignancy. The patient reports that she is being followed closely by Dr. Enriqueta Hardin, her medical oncologist and medical oncology has been ordering her mammograms. In light of her close followup and management through her medical oncologist, I have discharged her from our followup except on a p.r.n. basis. cc: MD Enriqueta Avendaño MD Ryan Tyler, MD
== END ==
LOC: M ONCR 10:39
PROVIDERS: ATTEND Radiology Radiation Oncology
DX: C50.911 Malignant neoplasm of unspecified site of right female breast (principal)

== ENCOUNTER → 2019-02-03 | Outpatient (CLI) | payer MEDICARE, OTHER ==
[~2019-02-03] MED LIST changes: +FURO20TA2 PO; -OMEP40CA2 PO; +OMEP40CA97 PO; +PROV108A INH
[2019-02-03 17:11] LABS: ALBUMIN 3.7 GM/DL (3.2-5.2); ALT/SGPT 23 U/L (12-78); BILIRUBIN,TOTAL 0.6 MG/DL (0.2-1.0); BLOOD UREA NITROGEN 19 MG/DL (7-18); CALCIUM LEVEL 8.8 MG/DL (8.8-10.2); CARBON DIOXIDE LEVEL 34 MEQ/L (21-32); CHLORIDE LEVEL 105 MEQ/L (98-107); CREATININE FOR GFR 0.84 MG/DL (0.55-1.30); FREE T4 1.58 NG/DL (0.76-1.46); GLOMERULAR FILTRATION RATE > 60.0 (>39); GLUCOSE, FASTING 90 MG/DL (70-100); NT-PRO BNP 328 PG/ML (<450); POTASSIUM SERUM 4.4 MEQ/L (3.5-5.1); SODIUM LEVEL 141 MEQ/L (136-145); TOTAL PROTEIN 6.9 GM/DL (6.4-8.2)
[2019-02-03 17:21] LABS: BASO % 0.5 % (0.0-1.0); EOS # 0.1 10^3/uL (0.0-0.50); EOS % 1.5 % (0.0-3.0); HEMOGLOBIN 12.9 g/dl (12.0-15.5); LYMPH # 0.7 10^3/uL (1.5-4.5); LYMPH % 18.8 % (24.0-44.0); MEAN CORPUSCULAR HEMOGLOBIN 32.1 pg (27.0-33.0); MEAN CORPUSCULAR HGB CONC 33.1 g/dl (32.0-36.5); MONO # 0.4 10^3/uL (0.0-0.8); MONO % 10.7 % (0.0-5.0); NEUTROPHILS # 2.7 10^3/uL (1.8-7.7); PLATELET COUNT, AUTOMATED 225 10^3/uL (150-450); RED BLOOD COUNT 4.02 10^6/uL (4.00-5.40); WHITE BLOOD COUNT 3.9 10^3/uL (4.0-10.0)
[2019-02-03 17:42] LABS: HEMOGLOBIN A1c 5.6 %
[2019-02-10 00:07] LABS: FREE T4 BY DIALYSIS DIRECT 2.4 ng/dL (.); INSULIN LEVEL 9.4 uIU/mL (2.6-24.9)
== END ==
LOC: M WUC 11:08
PROVIDERS: ATTEND Family Medicine
DX: R73.01 Impaired fasting glucose (principal); I10 Essential (primary) hypertension; E03.9 Hypothyroidism, unspecified

== ENCOUNTER → 2019-06-02 | Outpatient (CLI) | payer MEDICARE, OTHER ==
--- NOTE | 2019-06-06 15:17 | DEXA ---
AP SPINE L1 - L4 1.144 -0.4 1.4 LT FEMUR TOTAL 0.914 -0.7 1.0 LT NECK 0.795 -1.8 0.2 RT FEMUR TOTAL 0.794 -1.7 0.1 RT NECK 0.751 -2.1 -0.1 TOTAL BODY TOTAL OTHER COMMENTS: Normal bone densitometry of the spine. There is low bone density of the hips. The increased density of the spine does not represent a significant change. The decreased density of the left hip does not represent a significant change. The decreased density of the right hip does represent significant change. The density of the spine has decreased 5.6% since the initial exam on 10/31/2003. The spine density has increased 1.1% since the most recent exam on 05/05/2018. The density of the left hip has decreased 12.4% since the initial exam on 10/31/2003. The density of the left hip has decreased 0.1% since the most recent exam on 05/05/2018. The density of the right hip has decreased 19.9% since the initial exam on 10/31/2003. The density of the right hip has decreased 6.5% since the most recent exam on 05/05/2018. FOLLOW-UP: Recommendation for the next bone density exam: 2 years. ELIDA
== END ==
LOC: M WHC 10:35
PROVIDERS: ATTEND Nurse Practitioner Family
DX: M85.851 Other specified disorders of bone density and structure, right thigh (principal); M85.852 Other specified disorders of bone density and structure, left thigh; Z79.899 Other long term (current) drug therapy

== ENCOUNTER → 2019-07-11 | Outpatient (CLI) | payer MEDICARE, OTHER ==
[2019-07-11 13:10] LABS: BASO % 0.9 % (0.0-1.0); EOS # 0.1 10^3/uL (0.0-0.5); HEMOGLOBIN 13.3 g/dl (12.0-15.5); LYMPH # 0.8 10^3/uL (1.5-5.0); LYMPH % 23.8 % (24.0-44.0); MEAN CORPUSCULAR HEMOGLOBIN 32.2 pg (27.0-33.0); MEAN CORPUSCULAR HGB CONC 33.3 g/dl (32.0-36.5); MEAN CORPUSCULAR VOLUME 96.9 fl (80.0-96.0); MONO # 0.4 10^3/uL (0.0-0.8); MONO % 11.5 % (0.0-5.0); NEUTROPHILS # 2.2 10^3/uL (1.5-8.5); NEUTROPHILS % 61.8 % (36.0-66.0); PLATELET COUNT, AUTOMATED 207 10^3/uL (150-450); RED BLOOD COUNT 4.13 10^6/uL (4.00-5.40); WHITE BLOOD COUNT 3.5 10^3/uL (4.0-10.0)
[2019-07-11 13:27] LABS: APPEARANCE, URINE CLOUDY (CLEAR); BACTERIA, URINE AUTO 1+ (NEGATIVE); BILIRUBIN, URINE AUTO NEGATIVE (NEGATIVE); BLOOD, URINE BLOOD NEGATIVE (NEGATIVE); COLOR, URINE YELLOW (YELLOW); GLUCOSE, URINE (UA) AUTO NEGATIVE (NEGATIVE); KETONE, URINE AUTO NEGATIVE (NEGATIVE); LEUKOCYTE ESTERASE, URINE AUTO NEGATIVE (NEGATIVE); NITRITE, URINE AUTO NEGATIVE (NEGATIVE); PROTEIN, URINE AUTO NEGATIVE (NEGATIVE); RBC, URINE AUTO 5 /HPF (0-3); SPECIFIC GRAVITY URINE AUTO 1.017 (1.002-1.035); SQUAMOUS EPITHELIAL CELL UR AU 1 /HPF (0-6); UROBILINOGEN, URINE AUTO 0.2 mg/dL (0.0-2.0); WBC, URINE AUTO 2 /HPF (0-3)
[2019-07-11 13:39] LABS: ALBUMIN 3.7 GM/DL (3.2-5.2); ALT/SGPT 24 U/L (12-78); BILIRUBIN,TOTAL 0.6 MG/DL (0.2-1.0); BLOOD UREA NITROGEN 24 MG/DL (7-18); C REACTIVE PROTEIN QUANTITATIV < 0.30 MG/DL (0.00-0.30); CALCIUM LEVEL 9.4 MG/DL (8.8-10.2); CARBON DIOXIDE LEVEL 32 MEQ/L (21-32); CHLORIDE LEVEL 105 MEQ/L (98-107); CHOLESTEROL LEVEL 236 MG/DL (<200); CHOLESTEROL RISK RATIO 3.371 (<5); CREATININE FOR GFR 0.93 MG/DL (0.55-1.30); GLOMERULAR FILTRATION RATE > 60.0 (>39); GLUCOSE, FASTING 91 MG/DL (70-100); HDL CHOLESTEROL 70 MG/DL (>40); LDL CHOLESTEROL 149 MG/DL (<100); MAGNESIUM LEVEL 2.1 MG/DL (1.8-2.4); NON-HDL-C 166 MG/DL; NT-PRO BNP 186 PG/ML (<450); POTASSIUM SERUM 4.5 MEQ/L (3.5-5.1); SODIUM LEVEL 140 MEQ/L (136-145); TOTAL PROTEIN 7.3 GM/DL (6.4-8.2); TRIGLYCERIDES LEVEL 87 MG/DL (<150)
[2019-07-11 13:46] LABS: MAU/CREAT RATIO 6.9 MCG/MG (0.0-30.0)
[2019-07-11 14:06] LABS: ERYTHROCYTE SEDIMENTATION RATE 14 mm/hr (0-30)
[2019-07-13 08:08] LABS: FREE KAPPA LIGHT CHAINS SERUM 21.1 mg/L (3.3-19.4); FREE KAPPA LIGHT CHAINS URINE 8.12 mg/L (0.63-113.79); FREE LAMBDA LIGHT CHAINS SERUM 12.8 mg/L (5.7-26.3); FREE LAMBDA LIGHT CHAINS URINE 0.75 mg/L (0.47-11.77); KAPPA/LAMBDA RATIO SERUM 1.65 (0.26-1.65); KAPPA/LAMBDA RATIO URINE 10.83 (1.03-31.76)
== END ==
LOC: M WUC 10:49
PROVIDERS: ATTEND Family Medicine
DX: I50.32 Chronic diastolic (congestive) heart failure (principal); D47.2 Monoclonal gammopathy; R76.8 Other specified abnormal immunological findings in serum

== ENCOUNTER → 2019-09-01 | Outpatient (CLI) | payer MEDICARE, OTHER ==
--- NOTE | 2019-09-01 14:47 | REP ---
ADULT BONE SURVEY: Who body bone survey is performed to evaluate this patient with monoclonal gammopathy. AP and lateral views of the skull demonstrate no fracture lytic lesion. AP and lateral views of the cervical spine demonstrate no compression facture or malalignment with normal cervical lordosis and no prevertebral soft tissue swelling. There is disc space narrowing, subchondral sclerosis and spurring at C5-6 and C6-7. There is diffuse sclerosis and spurring at the posterior facet joints. Rounded lucent area is seen in the anterior aspect of the C3 vertebral body approximately 8 mm in diameter. There is possibly another lytic area at the inferior endplate of C3. AP and lateral views of the thoracic spine demonstrate no compression fracture. There is normal thoracic kyphosis. There is mild diffuse spurring of the mid and lower thoracic vertebral bodies. There is also mild disc space narrowing at multiple mid thoracic disc levels. No definite lytic lesion is seen in the thoracic spine. AP and lateral views of the lumbar spine demonstrate no fracture or malalignment with normal lumbar lordosis. There is mild disc space narrowing at L4-5. There is sclerosis and spurring at the facets at L4-5 and L5-S1. Posterior elements appear intact with no definite lytic lesion. AP view of the pelvis demonstrates no fracture. There is mild degenerative change at both hip joints. No definite lytic lesion is seen. AP views of the femurs demonstrate no fracture or lytic lesion. There are moderate degenerative changes of both knees. AP views of both humeri demonstrate no fracture or lytic lesion. There is mild degenerative change at both shoulders. Calcific density along the right humeral head may indicate calcific tendinitis. IMPRESSION: Whole body bone survey demonstrates suspected lytic lesions involving C3. Recommend CT or MRI to further evaluate. Electronically Signed by Nish Wu MD 09/05/2019 03:59 P
== END ==
LOC: M LAB 11:16
PROVIDERS: ATTEND Internal Medicine Hematology & Oncology
DX: G54.2 Cervical root disorders, not elsewhere classified (principal); D47.2 Monoclonal gammopathy; C50.919 Malignant neoplasm of unspecified site of unspecified female breast

== ENCOUNTER → 2019-09-01 | Outpatient (REF) | payer MEDICARE, OTHER ==
[2019-09-01 14:27] LABS: TOTAL VOLUME, URINE 1000 ML
== END ==
LOC: M LAB REF 12:29
PROVIDERS: ATTEND Internal Medicine Hematology & Oncology
DX: C50.919 Malignant neoplasm of unspecified site of unspecified female breast (principal)

== ENCOUNTER → 2019-09-14 | Outpatient (CLI) | payer MEDICARE, OTHER ==
[~2019-09-14] MED LIST changes: +CYCL-707 PO; -CYCL10TA PO; +GASTROGRAFIN SOLUTION 30ML (Q9963) As Ordered ONE; +ISOVUE-370 76% 100ML VIAL (Q9967) As Ordered ONE; +KETO2CR TOP; +VITA1CHW7 PO
--- NOTE | 2019-09-14 18:54 | REP ---
CT CHEST WITH IV CONTRAST: TECHNIQUE: Axial contrast enhanced images from the thoracic inlet to the upper abdomen using 100 mL Isovue 370 intravenous contrast material with multiplanar reformations. There are scattered interstitial fibrotic changes bilaterally, more so in the right upper lobe. Calcified granuloma seen medially in the right lower lobe. No suspicious nodular opacity seen in either lung. Skin thickening and post surgical change is seen in the right breast. There is no suspicious adenopathy. No axillary adenopathy, mediastinal or hilar adenopathy is seen. There are calcified mediastinal lymph nodes present predominantly in the subcarinal region. Heart is not enlarged. There is no pleural or pericardial effusion. There are degenerative changes of the spine. IMPRESSION: Evidence of prior granulomatous disease. Mild fibrotic changes in the lungs. No evidence of pulmonary nodule or adenopathy in the chest. Electronically Signed by Nish Wu MD 09/14/2019 06:59 P
--- NOTE | 2019-09-14 19:03 | REP ---
CT ABDOMEN AND PELVIS WITH ORAL AND IV CONTRAST, CT ABDOMEN WITHOUT IV CONTRAST: CT abdomen and pelvis performed following the intravenous administration of 100 mL of Isovue-370 as well as oral contrast material. Pre IV contrast CT images are obtained through the abdomen. Sagittal and coronal reconstruction images are performed. Multiple calcified granulomas are seen throughout the liver and spleen. No liver mass is seen. Gallbladder is grossly unremarkable. 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 Adrenal glands are normal. Pancreas demonstrates no mass. Kidneys are unremarkable. There is no hydronephrosis or nephrolithiasis. Ureter is normal in caliber. There is mild atherosclerotic calcification of the abdominal aorta without aneurysm. There is no adenopathy. There is no free air or free fluid. There is no bowel wall thickening. The appendix is normal. There is sigmoid diverticulosis without acute diverticulitis. There is no pelvic mass. There is no ovarian mass. Urinary bladder is not well distended and not well evaluated. There are mild degenerative changes of the spine. IMPRESSION: No adenopathy or mass identified. Multiple calcified granulomas seen in the liver and spleen. Mild sigmoid diverticulosis without acute diverticulitis. Electronically Signed by Nish Wu MD 09/14/2019 07:49 P
== END ==
LOC: M RAD 15:54
PROVIDERS: ATTEND Internal Medicine Hematology & Oncology
DX: C50.919 Malignant neoplasm of unspecified site of unspecified female breast (principal)
CPT/HCPCS: 71260; 74178; Q9963; Q9967

== ENCOUNTER → 2019-09-18 | Outpatient (CLI) | payer MEDICARE, OTHER ==
[~2019-09-18] MED LIST changes: -CYCL-707 PO; +CYCL10TA PO; -GASTROGRAFIN SOLUTION 30ML (Q9963) As Ordered ONE; -ISOVUE-370 76% 100ML VIAL (Q9967) As Ordered ONE
--- NOTE | 2019-09-19 10:42 | REP ---
PET/CT: HISTORY: Staging breast carcinoma. Right breast, treated in 2017. Monoclonal gammopathy. Possible radiolucent lesion in the C3 vertebral body on plain radiographs. COMPARISONS: Comparison CT study chest abdomen and pelvis September 14, 2019. Comparison skeletal survey September 01, 2019. TECHNIQUE: 52 minutes following the intravenous injection of a 8.82 mCi dose of F-18 FDG, three-dimensional PET scintigraphy is acquired from the skull base to the proximal thighs. Triplanar noncontrast CT scanning is acquired through the same anatomic range for attenuation correction, and image registration with scan parameters optimized to minimize radiation exposure to the patient. PET scintigraphy and CT datasets were fused and displayed on a workstation with multiplanar and projection display capability. PET/CT FINDINGS: Head and neck soft tissues are unremarkable. No abnormal hypermetabolic uptake. There is no abnormal axillary or supraclavicular or internal mammary adenopathy. There is some post-treatment change in the right breast with contour deformity and dermal thickening. No evidence of hypermetabolic mass lesion. No chest wall lesion is seen. No abnormal intrathoracic hypermetabolic focus is seen. In the abdomen and pelvis, there is normal distribution of tracer. There are granulomatous calcifications in the spleen. No abnormal hypermetabolic focus is seen in the abdomen or pelvis. No abnormal skeletal hypermetabolic focus is appreciated. There is no evidence of focal radiolucent skeletal lesion. No new lesion is visible at the C3 vertebral body level on accompanying CT images. IMPRESSION: Negative PET scintigraphy. No abnormal skeletal or soft tissue hypermetabolic focus. Post-treatment changes right breast. Electronically Signed by Edson Smith MD 09/19/2019 01:28 P
== END ==
LOC: M PLARAD 13:22
PROVIDERS: ATTEND Internal Medicine Hematology & Oncology
DX: C50.211 Malignant neoplasm of upper-inner quadrant of right female breast (principal)
CPT/HCPCS: 78815; A9552

== ENCOUNTER → 2019-09-19 | Outpatient (CLI) | payer MEDICARE, OTHER ==
[~2019-09-19] MED LIST changes: +PROHANCE 279.3MG/ML 15ML VIAL (A9576) As Ordered ONE; +PROHANCE 279.3MG/ML 5ML VIAL (A9576) As Ordered ONE
--- NOTE | 2019-09-19 17:41 | REP ---
MRI cervical spine without and with IV contrast: History: Malignant neoplasm of the breast. New C3 lytic lesion. Evaluate C3 lesion. History of monoclonal gammopathy. Comparison is made with prior MRI study of the cervical spine from January 13, 2012. Technique: Sagittal and axial T1 and T2-weighted scans are acquired in the usual fashion with and without fat saturation. Sequences include spin echo, turbo spin-echo, and STIR imaging sequences. MRI findings: Cervical vertebral body heights are preserved. Alignment is normal. Cortical and medullary bone signal intensity are normal. There is no evidence of bony destructive lesion in the third cervical vertebra on T1 and T2-weighted scans. No bony destructive lesion is seen elsewhere. The facet joint on the left at C3-4 appears to be fused developmentally. There is no suspicious gadolinium enhancement. Axial and sagittal images taken at C2-C3 demonstrate minimal disc bulging centrally. At C3-C4, there is mild disc narrowing. No focal disc protrusion is seen. No central canal stenosis or cord compression is seen. At C4-C5, there is minimal degenerative spondylolisthesis, 2 mm, unchanged from the 2012 study. There is mild diffuse disc bulging. There is mild central canal stenosis at C4-5 also unchanged. Midline AP dimension of the thecal sac at this level is 7.7 mm. No foraminal narrowing is appreciated. At C5-6, there is disc space narrowing. There is diffuse disc bulging, mild central canal stenosis, and moderate right-sided neural foraminal narrowing at C5-6 due to uncovertebral spurring. Midline AP dimension of the thecal sac at C5-6 is 7.7 mm. The uncovertebral spurring is similar to the 2012 study. Central canal stenosis is essentially unchanged as well. At C6-C7, there is minimal diffuse disc bulging and osteophytic ridging. Neural foramina appear adequate. C7-T1 level is unremarkable. Impression: There is no evidence to suggest skeletal metastatic disease at C3 or in any other cervical level. There are degenerative spondylosis changes which are essentially unchanged from the 2012 study. These include central canal stenosis at C4-5 and C5-6 and right-sided uncovertebral spurring and foraminal narrowing at C5-6. Electronically Signed by Edson Smith MD 09/20/2019 08:32 A
== END ==
LOC: M RAD 15:28
PROVIDERS: ATTEND Internal Medicine Hematology & Oncology
DX: C50.919 Malignant neoplasm of unspecified site of unspecified female breast (principal)
CPT/HCPCS: 72156; A9576

== ENCOUNTER → 2019-11-14 | Outpatient (REF) | payer MEDICARE, OTHER ==
[~2019-11-14] MED LIST changes: +CYCL-707 PO; -CYCL10TA PO; -PROHANCE 279.3MG/ML 15ML VIAL (A9576) As Ordered ONE; -PROHANCE 279.3MG/ML 5ML VIAL (A9576) As Ordered ONE
[2019-11-14 14:15] LABS: BASO % 0.4 % (0.0-1.0); EOS # 0.1 10^3/uL (0.0-0.5); EOS % 1.1 % (0.0-3.0); HEMATOCRIT 41.6 % (36.0-47.0); HEMOGLOBIN 13.8 g/dl (12.0-15.5); LYMPH # 0.9 10^3/uL (1.5-5.0); LYMPH % 20.4 % (24.0-44.0); MEAN CORPUSCULAR HEMOGLOBIN 31.7 pg (27.0-33.0); MEAN CORPUSCULAR HGB CONC 33.2 g/dl (32.0-36.5); MEAN CORPUSCULAR VOLUME 95.6 fl (80.0-96.0); MONO # 0.4 10^3/uL (0.0-0.8); MONO % 9.6 % (0.0-5.0); NEUTROPHILS # 3.1 10^3/uL (1.5-8.5); NEUTROPHILS % 68.1 % (36.0-66.0); PLATELET COUNT, AUTOMATED 215 10^3/uL (150-450); RED BLOOD COUNT 4.35 10^6/uL (4.00-5.40); WHITE BLOOD COUNT 4.5 10^3/uL (4.0-10.0)
[2019-11-14 14:37] LABS: ERYTHROCYTE SEDIMENTATION RATE 17 mm/hr (0-30)
[2019-11-14 14:40] LABS: BLOOD UREA NITROGEN 20 MG/DL (7-18); C REACTIVE PROTEIN QUANTITATIV < 0.30 MG/DL (0.00-0.30); CALCIUM LEVEL 9.3 MG/DL (8.8-10.2); CARBON DIOXIDE LEVEL 30 MEQ/L (21-32); CHLORIDE LEVEL 103 MEQ/L (98-107); CREATININE FOR GFR 1.12 MG/DL (0.55-1.30); GLOMERULAR FILTRATION RATE 50.4 (>39); GLUCOSE, FASTING 105 MG/DL (70-100); PHOSPHORUS LEVEL 3.7 MG/DL (2.5-4.9); POTASSIUM SERUM 4.3 MEQ/L (3.5-5.1); SODIUM LEVEL 139 MEQ/L (136-145)
[2019-11-16 11:42] LABS: ALBUMIN 4.62 GM/DL (3.29-5.55); ALBUMIN % 57.8 % (55.8-66.1); ALPHA-1-GLOBULIN % 4.3 % (2.9-4.9); ALPHA-1-GLOBULINS 0.34 GM/DL (0.17-0.41); ALPHA-2-GLOBULINS 0.83 GM/DL (0.42-0.99); ALPHA-2-GLOBULINS % 10.4 % (7.1-11.8); BETA-1-GLOBULINS 0.42 GM/DL (0.28-0.60); BETA-1-GLOBULINS % 5.2 % (4.7-7.2); BETA-2-GLOBULINS 0.36 GM/DL (0.19-0.55); BETA-2-GLOBULINS % 4.5 % (3.2-6.5); GAMMA GLOBULIN % 17.8 % (11.1-18.8); GAMMA GLOBULINS 1.42 GM/DL (0.65-1.58)
== END ==
LOC: M SFHCPLAZ 13:33
PROVIDERS: ATTEND Family Medicine
DX: M47.816 Spondylosis without myelopathy or radiculopathy, lumbar region (principal)
CPT/HCPCS: 36415; 80069; 84165; 85025; 85652; 86140; G0463

== ENCOUNTER → 2019-11-30 | Outpatient (CLI) | payer MEDICARE, OTHER ==
[2019-11-30 13:16] LABS: BASO % 0.3 % (0.0-1.0); EOS # 0.1 10^3/uL (0.0-0.5); EOS % 1.5 % (0.0-3.0); HEMATOCRIT 43.9 % (36.0-47.0); HEMOGLOBIN 14.8 g/dl (12.0-15.5); LYMPH # 0.9 10^3/uL (1.5-5.0); LYMPH % 13.9 % (24.0-44.0); MEAN CORPUSCULAR HEMOGLOBIN 32.6 pg (27.0-33.0); MEAN CORPUSCULAR HGB CONC 33.7 g/dl (32.0-36.5); MEAN CORPUSCULAR VOLUME 96.7 fl (80.0-96.0); MONO # 0.6 10^3/uL (0.0-0.8); NEUTROPHILS # 4.9 10^3/uL (1.5-8.5); NEUTROPHILS % 74.7 % (36.0-66.0); PLATELET COUNT, AUTOMATED 185 10^3/uL (150-450); RED BLOOD COUNT 4.54 10^6/uL (4.00-5.40); WHITE BLOOD COUNT 6.5 10^3/uL (4.0-10.0)
[2019-11-30 14:10] LABS: ALBUMIN 3.6 GM/DL (3.2-5.2); ALT/SGPT 31 U/L (12-78); BILIRUBIN,TOTAL 0.7 MG/DL (0.2-1.0); BLOOD UREA NITROGEN 26 MG/DL (7-18); CALCIUM LEVEL 8.8 MG/DL (8.8-10.2); CARBON DIOXIDE LEVEL 30 MEQ/L (21-32); CHLORIDE LEVEL 101 MEQ/L (98-107); CREATININE FOR GFR 0.99 MG/DL (0.55-1.30); FREE T4 1.69 NG/DL (0.76-1.46); GLOMERULAR FILTRATION RATE 58.1 (>39); GLUCOSE, FASTING 88 MG/DL (70-100); POTASSIUM SERUM 4.2 MEQ/L (3.5-5.1); PTH INTACT 51.4 PG/ML (18.5-88.0); SODIUM LEVEL 139 MEQ/L (136-145); TOTAL 25(OH) VITAMIN D 59.1 NG/ML (30.0-100.0); TOTAL PROTEIN 6.9 GM/DL (6.4-8.2)
[2019-11-30 14:32] LABS: HEMOGLOBIN A1c 6.2 %
[2019-12-04 12:45] LABS: ALPHA-1-GLOBULIN % 4.1 % (2.9-4.9); ALPHA-1-GLOBULINS 0.28 GM/DL (0.17-0.41); ALPHA-2-GLOBULINS 0.72 GM/DL (0.42-0.99); ALPHA-2-GLOBULINS % 10.4 % (7.1-11.8); BETA-1-GLOBULINS 0.39 GM/DL (0.28-0.60); BETA-1-GLOBULINS % 5.7 % (4.7-7.2); BETA-2-GLOBULINS % 4.3 % (3.2-6.5); GAMMA GLOBULIN % 17.5 % (11.1-18.8); GAMMA GLOBULINS 1.21 GM/DL (0.65-1.58)
== END ==
LOC: M WUC 09:54
PROVIDERS: ATTEND Family Medicine
DX: E03.9 Hypothyroidism, unspecified (principal); D72.819 Decreased white blood cell count, unspecified; E55.9 Vitamin D deficiency, unspecified; R73.01 Impaired fasting glucose

== ENCOUNTER → 2020-01-01 | Outpatient (CLI) | payer MEDICARE, OTHER ==
--- NOTE | 2020-01-01 12:55 | REPMRS ---
Patient History The patient states she had a clinical breast exam in December 2019.Family history of breast cancer at age 50 or over in maternal grandmother, colorectal cancer at age 50 or over in paternal grandmother. Malignant radio exam breast specimen, January 28, 2017. Malignant localization of breast nodule of the right breast, January 28, 2017. Malignant US guided breast biopsy of the right breast, January 13, 2017. Taking tamoxifen for 1 year 6 months. 3D TOMOSYNTHESIS WAS PERFORMED. VOLPARA DENSITY B. Digital Woman Screen Mammo: January 01, 2020 - Exam #: [id number] Bilateral CC and MLO view(s) were taken. Technologist: Roma Carmona, Technologist Prior study comparison: December 28, 2018, bilateral digital mammo screening bilat, performed at [facility]. December 27, 2017, bilateral digital mammo screening bilat, performed at [facility]. FINDINGS: The breast tissue is heterogeneously dense. This may lower the sensitivity of mammography. There has been no change in the appearance of the mammogram from the prior studies. There is a moderate amount of residual fibroglandular tissue which is fairly symmetric. There is no interval development of dominant mass, areas of architectural distortion, or clustered microcalcification typical of malignancy. Assessment: BI-RADS/ACR category 1 mammogram. Negative Mammogram. Recommendation Routine screening mammogram in 1 year (for women over age 40). This mammogram was interpreted with the aid of an FDA-approved computer-aided dectection system. Electronically Signed By: Nish Wu MD 01/01/20 [id number]
== END ==
LOC: M WHC 10:02
PROVIDERS: ATTEND Internal Medicine Hematology & Oncology
DX: Z12.31 Encounter for screening mammogram for malignant neoplasm of breast (principal); Z85.3 Personal history of malignant neoplasm of breast; Z80.3 Family history of malignant neoplasm of breast; Z80.0 Family history of malignant neoplasm of digestive organs

== ENCOUNTER → 2020-05-21 | Outpatient (CLI) | payer MEDICARE, OTHER ==
[~2020-05-21] MED LIST changes: +CALC600T17 PO; -CALC600T6 PO; +CETI5SOL3 PO; +D31000TA2 PO; +EYESOL OP; +FLON1SPR NARES; -NABU-119 PO; +NABU-53 PO; +NYST1POW9 TOP
[2020-05-21 12:00] LABS: BASO % 0.3 % (0.0-1.0); EOS # 0.1 10^3/uL (0.0-0.5); EOS % 2.2 % (0.0-3.0); HEMATOCRIT 39.4 % (36.0-47.0); HEMOGLOBIN 12.4 g/dl (12.0-15.5); LYMPH # 0.8 10^3/uL (1.5-5.0); LYMPH % 25.3 % (24.0-44.0); MEAN CORPUSCULAR HEMOGLOBIN 30.5 pg (27.0-33.0); MEAN CORPUSCULAR HGB CONC 31.5 g/dl (32.0-36.5); MEAN CORPUSCULAR VOLUME 96.8 fl (80.0-96.0); MONO # 0.3 10^3/uL (0.0-0.8); MONO % 9.7 % (0.0-5.0); NEUTROPHILS % 62.2 % (36.0-66.0); PLATELET COUNT, AUTOMATED 204 10^3/uL (150-450); RED BLOOD COUNT 4.07 10^6/uL (4.00-5.40); WHITE BLOOD COUNT 3.2 10^3/uL (4.0-10.0)
[2020-05-21 12:22] LABS: ALBUMIN 3.7 GM/DL (3.2-5.2); BILIRUBIN,TOTAL 0.6 MG/DL (0.2-1.0); C REACTIVE PROTEIN QUANTITATIV 0.3 MG/DL (0.00-0.30); CALCIUM LEVEL 9.5 MG/DL (8.8-10.2); CREATININE FOR GFR 1.09 MG/DL (0.55-1.30); GLOMERULAR FILTRATION RATE 51.8 (>39); MAGNESIUM LEVEL 2.4 MG/DL (1.8-2.4); POTASSIUM SERUM 4.5 MEQ/L (3.5-5.1); TOTAL PROTEIN 7.1 GM/DL (6.4-8.2)
[2020-05-21 12:25] LABS: ERYTHROCYTE SEDIMENTATION RATE 13 mm/hr (0-30)
[2020-05-21 13:21] LABS: HEMOGLOBIN A1c 5.4 %
== END ==
LOC: M WUC 09:02
PROVIDERS: ATTEND Family Medicine
DX: I10 Essential (primary) hypertension (principal); R73.01 Impaired fasting glucose; R76.8 Other specified abnormal immunological findings in serum

== ENCOUNTER → 2020-07-24 | Outpatient (CLI) | payer MEDICARE, OTHER ==
[~2020-07-24] MED LIST changes: -ALEN70TA74 PO; +ALEN70TA82 PO
--- NOTE | 2020-07-24 14:26 | REPVR ---
PROCEDURE INFORMATION: Exam: CT Temporal Bones Without Contrast. 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 Radiation optimization: All CT scans at this facility use at least one of these dose optimization techniques: automated exposure control; mA and/or kV adjustment per patient size (includes targeted exams where dose is matched to clinical indication); or iterative reconstruction. COMPARISON: No relevant prior studies available. FINDINGS: Right inner ear: Normal. Right ossicles and middle ear: Normal. The middle ear ossicles are intact. Right external auditory canal: Normal. Right facial nerve canal: Normal. Right jugular foramen: No jugular dehiscence. Right carotid canal: No aberrent carotid canal. Right mastoid air cells: Normal. No mastoid effusions. Left inner ear: Normal. Left ossicles and middle ear: Normal. The middle ear ossicles are intact. Left external auditory canal: Normal. Left facial nerve canal: Normal. Left jugular foramen: No jugular dehiscence. Left carotid canal: No aberrent carotid canal. Left mastoid air cells: Normal. No mastoid effusions. Soft tissues: Unremarkable. IMPRESSION: No acute findings. Electronically signed by: Anali Jin On 07/24/2020 14:26:24 PM
== END ==
LOC: M RAD 13:58
PROVIDERS: ATTEND Family Medicine
DX: H90.6 Mixed conductive and sensorineural hearing loss, bilateral (principal)

== ENCOUNTER → 2020-09-17 | Outpatient (CLI) | payer MEDICARE, OTHER ==
[2020-09-17 12:30] LABS: BASO # 0.1 10^3/uL (0.0-0.2); BASO % 1.3 % (0.0-1.0); EOS # 0.1 10^3/uL (0.0-0.5); HEMATOCRIT 39.2 % (36.0-47.0); HEMOGLOBIN 13.2 g/dl (12.0-15.5); LYMPH # 1.2 10^3/uL (1.5-5.0); LYMPH % 29.5 % (24.0-44.0); MEAN CORPUSCULAR HEMOGLOBIN 31.8 pg (27.0-33.0); MEAN CORPUSCULAR HGB CONC 33.7 g/dl (32.0-36.5); MEAN CORPUSCULAR VOLUME 94.5 fl (80.0-96.0); MONO # 0.4 10^3/uL (0.0-0.8); MONO % 9.6 % (2.0-8.0); NEUTROPHILS # 2.2 10^3/uL (1.5-8.5); NEUTROPHILS % 56.3 % (36.0-66.0); PLATELET COUNT, AUTOMATED 211 10^3/uL (150-450); RED BLOOD COUNT 4.15 10^6/uL (4.00-5.40)
[2020-09-17 12:56] LABS: HEMOGLOBIN A1c 5.7 %
[2020-09-17 13:08] LABS: ALBUMIN 3.9 GM/DL (3.2-5.2); ALT/SGPT 30 U/L (12-78); BILIRUBIN,TOTAL 0.8 MG/DL (0.2-1.0); BLOOD UREA NITROGEN 22 MG/DL (7-18); CALCIUM LEVEL 9.3 MG/DL (8.8-10.2); CARBON DIOXIDE LEVEL 30 MEQ/L (21-32); CHLORIDE LEVEL 103 MEQ/L (98-107); CHOLESTEROL LEVEL 217 MG/DL (<200); CHOLESTEROL RISK RATIO 2.583 (<5); CREATININE FOR GFR 0.92 MG/DL (0.55-1.30); FREE T4 1.56 NG/DL (0.76-1.46); GLOMERULAR FILTRATION RATE > 60.0 (>39); GLUCOSE, FASTING 87 MG/DL (70-100); HDL CHOLESTEROL 84 MG/DL (>40); LDL CHOLESTEROL 120 MG/DL (<100); NON-HDL-C 133 MG/DL; NT-PRO BNP 249 PG/ML (<450); SODIUM LEVEL 140 MEQ/L (136-145); TOTAL PROTEIN 7.5 GM/DL (6.4-8.2); TRIGLYCERIDES LEVEL 63 MG/DL (<150)
[2020-09-18 11:07] LABS: ALBUMIN % 59.6 % (55.8-66.1); ALPHA-1-GLOBULIN % 4.2 % (2.9-4.9); ALPHA-2-GLOBULINS % 9.7 % (7.1-11.8); BETA-1-GLOBULINS % 4.9 % (4.7-7.2)
[2020-09-18 11:08] LABS: ALBUMIN 4.47 GM/DL (3.29-5.55); ALPHA-1-GLOBULINS 0.32 GM/DL (0.17-0.41); ALPHA-2-GLOBULINS 0.73 GM/DL (0.42-0.99); BETA-1-GLOBULINS 0.37 GM/DL (0.28-0.60); GAMMA GLOBULIN % 17.6 % (11.1-18.8); GAMMA GLOBULINS 1.32 GM/DL (0.65-1.58)
== END ==
LOC: M WUC 09:53
PROVIDERS: ATTEND Family Medicine
DX: E03.9 Hypothyroidism, unspecified (principal); R73.01 Impaired fasting glucose; E78.2 Mixed hyperlipidemia; D72.819 Decreased white blood cell count, unspecified; I50.32 Chronic diastolic (congestive) heart failure; D47.2 Monoclonal gammopathy

== ENCOUNTER → 2021-01-01 | Outpatient (CLI) | payer MEDICARE, OTHER ==
[~2021-01-01] MED LIST changes: -NABU-53 PO; +NABU-73 PO; +OMEP40CA4 PO; -OMEP40CA97 PO
--- NOTE | 2021-01-01 12:48 | REPMRS ---
Patient History The patient states she had a clinical breast exam in August 2020. Patient is postmenopausal and has history of cancer in the right breast at age 71. Family history of breast cancer at age 50 or over in maternal grandmother, colorectal cancer at age 50 or over in paternal grandmother, breast cancer at age 53 in niece. Malignant radio exam breast specimen, January 28, 2017. Malignant localization of breast nodule of the right breast, January 28, 2017. Malignant US guided breast biopsy of the right breast, January 13, 2017. Radiation therapy of the right breast, 2016. Taking letrozole for 2 years 6 months. Patient states no breast complaints today. Patient has signed MRS History Sheet. Digital Woman Screen Mammo: January 01, 2021 - Exam #: [id number] Bilateral CC and MLO view(s) were taken. Technologist: Anisha Feliciano, Technologist Prior study comparison: January 01, 2020, bilateral digital woman screen mammo performed at [facility]. December 28, 2018, bilateral digital mammo screening bilat, performed at [facility]. December 27, 2017, bilateral digital mammo screening bilat, performed at [facility]. FINDINGS: There are scattered fibroglandular densities. The Volpara volumetric breast density category is:B. There are stable post treatment changes again noted in the right breast. There has been no change in the appearance of the mammogram from the prior studies. There is a mild amount of scattered fibroglandular density which is fairly symmetric. There is no interval development of dominant mass, architectural distortion, or grouped microcalcification suggestive of malignancy. 3-D tomosynthesis shows no additional findings. Assessment: BI-RADS/ACR category 2 mammogram. Benign Findings. Recommendation Routine screening mammogram of both breasts in 1 year (for women over age 40). This mammogram was interpreted with the aid of an FDA-approved computer-aided dectection system. Electronically Signed By: Jason Smith MD 01/01/21 [id number]
== END ==
LOC: M WHC 11:18
PROVIDERS: ATTEND Internal Medicine Medical Oncology
DX: Z12.31 Encounter for screening mammogram for malignant neoplasm of breast (principal)

== ENCOUNTER → 2021-01-28 | Outpatient (CLI) | payer MEDICARE, OTHER ==
[2021-01-28 13:25] LABS: BASO % 0.6 % (0.0-1.0); EOS # 0.1 10^3/uL (0.0-0.5); EOS % 1.4 % (0.0-3.0); HEMATOCRIT 41.3 % (36.0-47.0); HEMOGLOBIN 13.7 g/dl (12.0-15.5); LYMPH # 0.9 10^3/uL (1.5-5.0); LYMPH % 26.6 % (24.0-44.0); MEAN CORPUSCULAR HEMOGLOBIN 31.2 pg (27.0-33.0); MEAN CORPUSCULAR HGB CONC 33.2 g/dl (32.0-36.5); MEAN CORPUSCULAR VOLUME 94.1 fl (80.0-96.0); MONO # 0.3 10^3/uL (0.0-0.8); MONO % 9.7 % (2.0-8.0); NEUTROPHILS # 2.1 10^3/uL (1.5-8.5); NEUTROPHILS % 61.4 % (36.0-66.0); PLATELET COUNT, AUTOMATED 197 10^3/uL (150-450); RED BLOOD COUNT 4.39 10^6/uL (4.00-5.40); WHITE BLOOD COUNT 3.5 10^3/uL (4.0-10.0)
[2021-01-28 13:52] LABS: HEMOGLOBIN A1c 5.7 %
[2021-01-28 14:03] LABS: ERYTHROCYTE SEDIMENTATION RATE 12 mm/hr (0-30)
[2021-01-28 14:10] LABS: ALBUMIN 3.8 GM/DL (3.2-5.2); ALT/SGPT 28 U/L (12-78); BILIRUBIN,TOTAL 0.6 MG/DL (0.2-1.0); BLOOD UREA NITROGEN 20 MG/DL (7-18); CARBON DIOXIDE LEVEL 31 MEQ/L (21-32); CHLORIDE LEVEL 106 MEQ/L (98-107); GLOMERULAR FILTRATION RATE > 60.0 (>39); GLUCOSE, FASTING 100 MG/DL (70-100); NT-PRO BNP 263 PG/ML (<450); POTASSIUM SERUM 4.1 MEQ/L (3.5-5.1); SODIUM LEVEL 141 MEQ/L (136-145); TOTAL PROTEIN 7.2 GM/DL (6.4-8.2)
== END ==
LOC: M WUC 11:02
PROVIDERS: ATTEND Family Medicine
DX: R76.8 Other specified abnormal immunological findings in serum (principal); R73.01 Impaired fasting glucose; I10 Essential (primary) hypertension; D47.2 Monoclonal gammopathy

== ENCOUNTER → 2021-06-04 | Outpatient (REF) | LOC: M LABSMTC 10:38 | PROVIDERS: ATTEND Pediatrics | DX: Z11.52 Encounter for screening for COVID-19 (principal) ==

== ENCOUNTER → 2021-06-09 | Outpatient (CLI) | payer MEDICARE, OTHER ==
[2021-06-09 12:18] LABS: BASO % 0.5 % (0.0-1.0); EOS # 0.1 10^3/uL (0.0-0.5); EOS % 1.8 % (0.0-3.0); HEMATOCRIT 39.7 % (36.0-47.0); HEMOGLOBIN 13.2 g/dl (12.0-15.5); LYMPH # 0.9 10^3/uL (1.5-5.0); LYMPH % 24.7 % (24.0-44.0); MEAN CORPUSCULAR HEMOGLOBIN 31.4 pg (27.0-33.0); MEAN CORPUSCULAR HGB CONC 33.2 g/dl (32.0-36.5); MEAN CORPUSCULAR VOLUME 94.3 fl (80.0-96.0); MONO # 0.4 10^3/uL (0.0-0.8); MONO % 10.5 % (2.0-8.0); NEUTROPHILS # 2.4 10^3/uL (1.5-8.5); NEUTROPHILS % 62.2 % (36.0-66.0); PLATELET COUNT, AUTOMATED 191 10^3/uL (150-450); RED BLOOD COUNT 4.21 10^6/uL (4.00-5.40); WHITE BLOOD COUNT 3.8 10^3/uL (4.0-10.0)
[2021-06-09 13:08] LABS: HEMOGLOBIN A1c 5.6 %
[2021-06-09 15:29] LABS: CHOLESTEROL RISK RATIO 2.657 (<5); FREE T4 1.3 NG/DL (0.76-1.46); THYROID STIMULATING HORMONE 1.86 uIU/ML (0.358-3.740); TOTAL 25(OH) VITAMIN D 63.6 NG/ML (30.0-100.0)
[2021-06-10 11:12] LABS: PTH INTACT 39.4 PG/ML (18.5-88.0)
== END ==
LOC: M PLALAB 09:10
PROVIDERS: ATTEND Family Medicine
DX: D72.819 Decreased white blood cell count, unspecified (principal); E03.9 Hypothyroidism, unspecified; R73.01 Impaired fasting glucose

== ENCOUNTER → 2021-06-19 | Outpatient (CLI) | payer MEDICARE, OTHER ==
[~2021-06-19] MED LIST changes: -CEFD1CAP8 PO; +CEFD300C41 PO
== END ==
LOC: M WHC 11:14
PROVIDERS: ATTEND Internal Medicine Medical Oncology
DX: M81.0 Age-related osteoporosis without current pathological fracture (principal)

== ENCOUNTER → 2021-09-10 | Outpatient (REF) | payer MEDICARE, OTHER ==
[~2021-09-10] MED LIST changes: -D31000TA2 PO; -EYESOL OP; +EYESOL OU; +VITA100093 PO; +VITA30005 SL
== END ==
LOC: M SFHCPLAZ 12:34
PROVIDERS: ATTEND Physician Assistant
DX: J02.9 Acute pharyngitis, unspecified (principal); R09.81 Nasal congestion

== ENCOUNTER → 2021-10-07 | Outpatient (CLI) | payer MEDICARE, OTHER ==
[2021-10-07 13:54] LABS: BASO % 0.3 % (0.0-1.0); EOS % 1.1 % (0.0-3.0); HEMATOCRIT 40.6 % (36.0-47.0); HEMOGLOBIN 13.4 g/dl (12.0-15.5); LYMPH # 0.8 10^3/uL (1.5-5.0); MEAN CORPUSCULAR HEMOGLOBIN 31.2 pg (27.0-33.0); MEAN CORPUSCULAR VOLUME 94.4 fl (80.0-96.0); MONO # 0.4 10^3/uL (0.0-0.8); MONO % 11.7 % (2.0-8.0); NEUTROPHILS # 2.2 10^3/uL (1.5-8.5); NEUTROPHILS % 62.9 % (36.0-66.0); PLATELET COUNT, AUTOMATED 200 10^3/uL (150-450); WHITE BLOOD COUNT 3.5 10^3/uL (4.0-10.0)
[2021-10-07 14:27] LABS: ERYTHROCYTE SEDIMENTATION RATE 12 mm/hr (0-30)
[2021-10-07 14:58] LABS: ALBUMIN 3.8 GM/DL (3.2-5.2); ALT/SGPT 30 U/L (12-78); BILIRUBIN,TOTAL 0.7 MG/DL (0.2-1.0); BLOOD UREA NITROGEN 20 MG/DL (7-18); CALCIUM LEVEL 8.9 MG/DL (8.8-10.2); CARBON DIOXIDE LEVEL 34 MEQ/L (21-32); CHLORIDE LEVEL 103 MEQ/L (98-107); CREATININE FOR GFR 0.98 MG/DL (0.55-1.30); GLOMERULAR FILTRATION RATE 58.4 (>39); GLUCOSE, FASTING 100 MG/DL (70-100); MAGNESIUM LEVEL 2.1 MG/DL (1.8-2.4); NT-PRO BNP 279 PG/ML (<450); POTASSIUM SERUM 4.2 MEQ/L (3.5-5.1); SODIUM LEVEL 140 MEQ/L (136-145); TOTAL PROTEIN 7.2 GM/DL (6.4-8.2)
[2021-10-07 18:38] LABS: HEMOGLOBIN A1c 5.7 %
[2021-10-08 14:46] LABS: ALBUMIN 4.09 GM/DL (3.29-5.55); ALBUMIN % 56.8 % (55.8-66.1); ALPHA-1-GLOBULIN % 4.4 % (2.9-4.9); ALPHA-1-GLOBULINS 0.32 GM/DL (0.17-0.41); ALPHA-2-GLOBULINS 0.78 GM/DL (0.42-0.99); ALPHA-2-GLOBULINS % 10.8 % (7.1-11.8); BETA-1-GLOBULINS 0.38 GM/DL (0.28-0.60); BETA-1-GLOBULINS % 5.3 % (4.7-7.2); BETA-2-GLOBULINS % 4.1 % (3.2-6.5); GAMMA GLOBULIN % 18.6 % (11.1-18.8); GAMMA GLOBULINS 1.34 GM/DL (0.65-1.58)
== END ==
LOC: M WUC 10:51
PROVIDERS: ATTEND Family Medicine
DX: I50.32 Chronic diastolic (congestive) heart failure (principal); R76.8 Other specified abnormal immunological findings in serum; R73.01 Impaired fasting glucose; D47.2 Monoclonal gammopathy

== ENCOUNTER → 2022-01-02 | Outpatient (CLI) | payer MEDICARE, OTHER ==
[~2022-01-02] MED LIST changes: -DICL1GEL TOP; +DICL3GEL2 TOP
== END ==
LOC: M WHC 10:02
PROVIDERS: ATTEND Internal Medicine Medical Oncology
DX: Z12.31 Encounter for screening mammogram for malignant neoplasm of breast (principal)

== ENCOUNTER → 2022-02-26 | Outpatient (CLI) | payer MEDICARE, OTHER ==
[~2022-02-26] MED LIST changes: +NYST-13 EXT; -NYST10CR EXT
[2022-02-26 12:08] LABS: HEMOGLOBIN A1c 5.8 %
[2022-02-26 12:32] LABS: ALBUMIN 3.6 GM/DL (3.2-5.2); ALT/SGPT 26 U/L (12-78); BILIRUBIN,TOTAL 0.6 MG/DL (0.2-1.0); BLOOD UREA NITROGEN 19 MG/DL (7-18); CALCIUM LEVEL 8.9 MG/DL (8.8-10.2); CARBON DIOXIDE LEVEL 28 MEQ/L (21-32); CHLORIDE LEVEL 107 MEQ/L (98-107); CHOLESTEROL LEVEL 180 MG/DL (<200); CHOLESTEROL RISK RATIO 2.093 (<5); GLOMERULAR FILTRATION RATE > 60.0 (>39); GLUCOSE, FASTING 104 MG/DL (70-100); HDL CHOLESTEROL 86 MG/DL (>40); LDL CHOLESTEROL 84 MG/DL (<100); NON-HDL-C 94 MG/DL; NT-PRO BNP 336 PG/ML (<450); POTASSIUM SERUM 4.2 MEQ/L (3.5-5.1); SODIUM LEVEL 141 MEQ/L (136-145); TOTAL PROTEIN 7.1 GM/DL (6.4-8.2); TRIGLYCERIDES LEVEL 49 MG/DL (<150)
[2022-02-26 13:09] LABS: TOTAL 25(OH) VITAMIN D 54.5 NG/ML (30.0-100.0)
[2022-02-26 13:10] LABS: PTH INTACT 75.3 PG/ML (18.5-88.0)
== END ==
LOC: M WUC 10:02
PROVIDERS: ATTEND Family Medicine
DX: R73.01 Impaired fasting glucose (principal); I50.32 Chronic diastolic (congestive) heart failure; E78.2 Mixed hyperlipidemia; E55.9 Vitamin D deficiency, unspecified; Z79.899 Other long term (current) drug therapy

== ENCOUNTER → 2022-07-14 | Outpatient (CLI) | payer MEDICARE, OTHER ==
[~2022-07-14] MED LIST changes: +ALBU6.7H6 INH; -PROV108A INH
[2022-07-14 16:48] LABS: BASO % 0.3 % (0.0-1.0); EOS # 0.1 10^3/uL (0.0-0.5); EOS % 1.3 % (0.0-3.0); HEMATOCRIT 41.1 % (36.0-47.0); HEMOGLOBIN 13.5 g/dl (12.0-15.5); LYMPH % 25.9 % (24.0-44.0); MEAN CORPUSCULAR HEMOGLOBIN 31.4 pg (27.0-33.0); MEAN CORPUSCULAR HGB CONC 32.8 g/dl (32.0-36.5); MEAN CORPUSCULAR VOLUME 95.6 fl (80.0-96.0); MONO # 0.4 10^3/uL (0.0-0.8); MONO % 10.9 % (2.0-8.0); NEUTROPHILS # 2.4 10^3/uL (1.5-8.5); NEUTROPHILS % 61.3 % (36.0-66.0); PLATELET COUNT, AUTOMATED 202 10^3/uL (150-450); WHITE BLOOD COUNT 3.9 10^3/uL (4.0-10.0)
[2022-07-14 16:51] LABS: C REACTIVE PROTEIN QUANTITATIV < 0.40 MG/DL (<1.0); MAGNESIUM LEVEL 2.1 MG/DL (1.8-2.4)
[2022-07-14 17:05] LABS: FREE T4 1.46 NG/DL (0.89-1.76)
[2022-07-14 17:09] LABS: ERYTHROCYTE SEDIMENTATION RATE 26 mm/hr (0-30)
[2022-07-14 17:15] LABS: ALBUMIN 3.9 G/DL (3.2-5.2); BILIRUBIN,TOTAL 0.8 MG/DL (0.3-1.2); CREATININE FOR GFR 0.98 MG/DL (0.55-1.30); GLOMERULAR FILTRATION RATE 58.3 (>39); POTASSIUM SERUM 3.8 MMOL/L (3.5-5.1); TOTAL PROTEIN 7.3 G/DL (5.7-8.2)
== END ==
LOC: M WUC 13:57
PROVIDERS: ATTEND Family Medicine
DX: D72.819 Decreased white blood cell count, unspecified (principal); D47.2 Monoclonal gammopathy; I11.0 Hypertensive heart disease with heart failure; R76.8 Other specified abnormal immunological findings in serum; I50.32 Chronic diastolic (congestive) heart failure

== ENCOUNTER → 2022-10-27 | Outpatient (CLI) | payer MEDICARE, OTHER ==
[~2022-10-27] MED LIST changes: -PHILCAP4 PO; +PHILLIPS COLON1 CAP PO
[2022-10-27 16:36] LABS: ALBUMIN 3.7 G/DL (3.2-5.2); BILIRUBIN,TOTAL 0.6 MG/DL (0.3-1.2); CALCIUM LEVEL 9.2 MG/DL (8.3-10.6); CREATININE FOR GFR 0.96 MG/DL (0.55-1.30); GLOMERULAR FILTRATION RATE 59.7 (>39); POTASSIUM SERUM 4.4 MMOL/L (3.5-5.1); TOTAL PROTEIN 7.1 G/DL (5.7-8.2)
[2022-10-27 16:38] LABS: FERRITIN 90.2 NG/ML (7.3-270.7)
[2022-10-27 16:39] LABS: TOTAL 25(OH) VITAMIN D 67.9 NG/ML (20.0-100.0)
[2022-10-27 16:45] LABS: BASO % 1.1 % (0.0-1.0); EOS % 1.1 % (0.0-3.0); HEMATOCRIT 40.7 % (36.0-47.0); HEMOGLOBIN 13.2 g/dl (12.0-15.5); LYMPH # 0.9 10^3/uL (1.5-5.0); LYMPH % 23.5 % (24.0-44.0); MEAN CORPUSCULAR HEMOGLOBIN 30.8 pg (27.0-33.0); MEAN CORPUSCULAR HGB CONC 32.4 g/dl (32.0-36.5); MEAN CORPUSCULAR VOLUME 95.1 fl (80.0-96.0); MONO # 0.3 10^3/uL (0.0-0.8); MONO % 9.4 % (2.0-8.0); NEUTROPHILS # 2.3 10^3/uL (1.5-8.5); NEUTROPHILS % 64.6 % (36.0-66.0); PLATELET COUNT, AUTOMATED 200 10^3/uL (150-450); RED BLOOD COUNT 4.28 10^6/uL (4.00-5.40); WHITE BLOOD COUNT 3.6 10^3/uL (4.0-10.0)
[2022-10-27 17:01] LABS: HEMOGLOBIN A1c 5.5 % (4.0-6.0)
== END ==
LOC: M WUC 11:14
PROVIDERS: ATTEND Family Medicine
DX: E55.9 Vitamin D deficiency, unspecified (principal); I50.32 Chronic diastolic (congestive) heart failure; R73.01 Impaired fasting glucose; D47.2 Monoclonal gammopathy

== ENCOUNTER → 2022-12-09 | Outpatient (REF) | payer MEDICARE, OTHER | LOC: M SFHCPLAZ 13:44 | PROVIDERS: ATTEND Family Medicine | DX: I50.32 Chronic diastolic (congestive) heart failure (principal); R76.8 Other specified abnormal immunological findings in serum; D47.2 Monoclonal gammopathy; E78.2 Mixed hyperlipidemia ==

== ENCOUNTER → 2023-01-04 | Outpatient (CLI) | payer MEDICARE, OTHER | LOC: M WHC 09:32 | PROVIDERS: ATTEND Family Medicine | DX: Z12.31 Encounter for screening mammogram for malignant neoplasm of breast (principal) ==

== ENCOUNTER → 2023-05-05 | Outpatient (CLI) | payer MEDICARE, OTHER ==
[~2023-05-05] MED LIST changes: +ALBU8.5H INH; -CEFD300C41 PO; +CEFD300C42 PO; +CETI-24 PO; +L.RH1CAP2 PO
[2023-05-05 13:37] LABS: C REACTIVE PROTEIN QUANTITATIV < 0.40 MG/DL (<1.0)
[2023-05-05 13:40] LABS: ALBUMIN 3.7 G/DL (3.2-5.2); ALKALINE PHOSPHATASE 101 U/L (46-116); ALT/SGPT 16 U/L (7.0-40); AST/SGOT 22 U/L (<34); BILIRUBIN,TOTAL 0.6 MG/DL (0.3-1.2); BLOOD UREA NITROGEN 23 MG/DL (9-23); CALCIUM LEVEL 9.1 MG/DL (8.3-10.6); CARBON DIOXIDE LEVEL 32 MMOL/L (20-31); CHLORIDE LEVEL 101 MMOL/L (98-107); CHOLESTEROL LEVEL 202 MG/DL (<200); CREATININE FOR GFR 0.81 MG/DL (0.55-1.30); GLOMERULAR FILTRATION RATE > 60.0 (>32); GLUCOSE, FASTING 85 MG/DL (74-106); HDL CHOLESTEROL 74.7 MG/DL (>40); LDL CHOLESTEROL 113.9 MG/DL (<100); NON-HDL-C 127.3 MG/DL; POTASSIUM SERUM 3.8 MMOL/L (3.5-5.1); SODIUM LEVEL 140 MMOL/L (136-145); THYROID STIMULATING HORMONE 3.944 uIU/ML (0.55-4.78); TOTAL PROTEIN 7.1 G/DL (5.7-8.2); TRIGLYCERIDES LEVEL 67 MG/DL (<150)
== END ==
LOC: M WUC 08:17
PROVIDERS: ATTEND Family Medicine
DX: I50.32 Chronic diastolic (congestive) heart failure (principal); R76.8 Other specified abnormal immunological findings in serum; E78.2 Mixed hyperlipidemia

== ENCOUNTER → 2023-05-11 | Outpatient (CLI) | payer MEDICARE, OTHER | LOC: M WHC 12:28 | PROVIDERS: ATTEND Family Medicine | DX: M85.80 Other specified disorders of bone density and structure, unspecified site (principal); Z12.31 Encounter for screening mammogram for malignant neoplasm of breast ==

== ENCOUNTER → 2023-09-14 | Outpatient (CLI) | payer MEDICARE, OTHER ==
[~2023-09-14] MED LIST changes: +CEFD1CAP9 PO; -CEFD300C42 PO
[2023-09-14 17:12] LABS: C REACTIVE PROTEIN QUANTITATIV < 0.40 MG/DL (<1.0)
[2023-09-14 17:15] LABS: ALBUMIN 3.9 G/DL (3.2-5.2); ALKALINE PHOSPHATASE 95 U/L (46-116); ALT/SGPT 18 U/L (7.0-40); AST/SGOT 23 U/L (<34); BILIRUBIN,TOTAL 0.8 MG/DL (0.3-1.2); BLOOD UREA NITROGEN 26 MG/DL (9-23); CALCIUM LEVEL 8.6 MG/DL (8.3-10.6); CARBON DIOXIDE LEVEL 32 MMOL/L (20-31); CHLORIDE LEVEL 105 MMOL/L (98-107); CREATININE FOR GFR 0.84 MG/DL (0.55-1.30); GLOMERULAR FILTRATION RATE > 60.0 (>32); GLUCOSE, FASTING 100 MG/DL (74-106); MAGNESIUM LEVEL 1.9 MG/DL (1.8-2.4); POTASSIUM SERUM 4.1 MMOL/L (3.5-5.1); SODIUM LEVEL 141 MMOL/L (136-145); TOTAL PROTEIN 7.2 G/DL (5.7-8.2)
[2023-09-14 17:16] LABS: FERRITIN 75.8 NG/ML (7.3-270.7); FREE T4 1.34 NG/DL (0.89-1.76); HEMOGLOBIN A1c 5.1 % (4.0-6.0); THYROID STIMULATING HORMONE 2.651 uIU/ML (0.55-4.78)
== END ==
LOC: M WUC 10:46
PROVIDERS: ATTEND Family Medicine
DX: I50.32 Chronic diastolic (congestive) heart failure (principal); D47.2 Monoclonal gammopathy; R73.01 Impaired fasting glucose

== ENCOUNTER → 2023-09-20 | Outpatient (CLI) | payer MEDICARE, OTHER | LOC: M WHC 14:04 | PROVIDERS: ATTEND Family Medicine | DX: Z12.31 Encounter for screening mammogram for malignant neoplasm of breast (principal) ==

== ENCOUNTER → 2024-01-06 | Outpatient (CLI) | payer MEDICARE, OTHER ==
[~2024-01-06] MED LIST changes: +MV-M1TAB13 PO
== END ==
LOC: M WHC 09:31
PROVIDERS: ATTEND Family Medicine
DX: Z12.31 Encounter for screening mammogram for malignant neoplasm of breast (principal)

== ENCOUNTER → 2024-01-28 | Outpatient (CLI) | payer MEDICARE, OTHER ==
[2024-01-28 13:25] LABS: BASO % 0.9 % (0.0-1.0); EOS # 0.1 10^3/uL (0.0-0.5); EOS % 1.5 % (0.0-3.0); HEMATOCRIT 39.6 % (36.0-47.0); HEMOGLOBIN 13.3 g/dl (12.0-15.5); LYMPH % 30.5 % (24.0-44.0); MEAN CORPUSCULAR HGB CONC 33.6 g/dl (32.0-36.5); MEAN CORPUSCULAR VOLUME 95.2 fl (80.0-96.0); MONO # 0.4 10^3/uL (0.0-0.8); MONO % 10.9 % (2.0-8.0); NEUTROPHILS # 1.9 10^3/uL (1.5-8.5); NEUTROPHILS % 56.2 % (36.0-66.0); PLATELET COUNT, AUTOMATED 187 10^3/uL (150-450); RED BLOOD COUNT 4.16 10^6/uL (4.00-5.40); WHITE BLOOD COUNT 3.3 10^3/uL (4.0-10.0)
[2024-01-28 13:32] LABS: ALBUMIN 3.6 G/DL (3.2-5.2); ALKALINE PHOSPHATASE 86 U/L (46-116); ALT/SGPT 17 U/L (7.0-40); AST/SGOT 22 U/L (<34); BILIRUBIN,TOTAL 0.6 MG/DL (0.3-1.2); BLOOD UREA NITROGEN 20 MG/DL (9-23); CALCIUM LEVEL 9.1 MG/DL (8.3-10.6); CARBON DIOXIDE LEVEL 32 MMOL/L (20-31); CHLORIDE LEVEL 104 MMOL/L (98-107); CHOLESTEROL LEVEL 194 MG/DL (<200); CHOLESTEROL RISK RATIO 2.99 (<5); CREATININE FOR GFR 0.93 MG/DL (0.55-1.30); GLOMERULAR FILTRATION RATE > 60.0 (>32); GLUCOSE, FASTING 104 MG/DL (74-106); HDL CHOLESTEROL 64.7 MG/DL (>40); LDL CHOLESTEROL 118.9 MG/DL (<100); NON-HDL-C 129.3 MG/DL; POTASSIUM SERUM 4.3 MMOL/L (3.5-5.1); SODIUM LEVEL 141 MMOL/L (136-145); TOTAL PROTEIN 6.8 G/DL (5.7-8.2); TRIGLYCERIDES LEVEL 52 MG/DL (<150)
[2024-01-28 13:34] LABS: FERRITIN 95.1 NG/ML (7.3-270.7)
[2024-01-28 13:42] LABS: HEMOGLOBIN A1c 5.4 % (4.0-6.0)
[2024-01-29 06:27] LABS: PROTEIN, TOTAL SO 6.8 g/dL (6.1-8.1)
[2024-02-01 06:52] LABS: ALBUMIN SO 3.8 g/dL (3.8-4.8); ALPHA 1 GLOBULINS SO 0.3 g/dL (0.2-0.3); ALPHA 2 GLOBULINS SO 0.6 g/dL (0.5-0.9); BETA 2 GLOBULIN SO 0.3 g/dL (0.2-0.5); BETA GLOBULIN SO 0.4 g/dL (0.4-0.6); GAMMA GLOBULINS SO 1.4 g/dL (0.8-1.7); SPEP IFE ABN PROTEIN BAND 1 1.2 g/dL (NONE DETECTED)
== END ==
LOC: M WUC 09:20
PROVIDERS: ATTEND Family Medicine
DX: R73.01 Impaired fasting glucose (principal); I50.32 Chronic diastolic (congestive) heart failure; D47.2 Monoclonal gammopathy; E78.2 Mixed hyperlipidemia

== ENCOUNTER → 2024-08-23 | Outpatient (CLI) | payer MEDICARE, OTHER ==
[~2024-08-23] MED LIST changes: +NYST1POW3 TOP; -NYST1POW9 TOP
[2024-08-23 13:53] LABS: BASO % 0.9 % (0.0-1.0); EOS % 1.2 % (0.0-3.0); HEMATOCRIT 40.2 % (36.0-47.0); HEMOGLOBIN 12.9 g/dl (12.0-15.5); LYMPH # 0.9 10^3/uL (1.5-5.0); LYMPH % 26.5 % (24.0-44.0); MEAN CORPUSCULAR HEMOGLOBIN 30.9 pg (27.0-33.0); MEAN CORPUSCULAR HGB CONC 32.1 g/dl (32.0-36.5); MEAN CORPUSCULAR VOLUME 96.2 fl (80.0-96.0); MONO # 0.3 10^3/uL (0.0-0.8); NEUTROPHILS # 2.1 10^3/uL (1.5-8.5); NEUTROPHILS % 61.1 % (36.0-66.0); PLATELET COUNT, AUTOMATED 193 10^3/uL (150-450); RED BLOOD COUNT 4.18 10^6/uL (4.00-5.40); WHITE BLOOD COUNT 3.4 10^3/uL (4.0-10.0)
[2024-08-23 14:28] LABS: ALBUMIN 3.5 G/DL (3.2-5.2); ALKALINE PHOSPHATASE 82 U/L (35-104); ALT/SGPT 15 U/L (7.0-40); AST/SGOT 21 U/L (<34); BILIRUBIN,TOTAL 0.6 MG/DL (0.3-1.2); BLOOD UREA NITROGEN 25 MG/DL (9-23); CALCIUM LEVEL 8.5 MG/DL (8.3-10.6); CARBON DIOXIDE LEVEL 34 MMOL/L (20-31); CHLORIDE LEVEL 103 MMOL/L (98-107); CHOLESTEROL LEVEL 215 MG/DL (<200); CHOLESTEROL RISK RATIO 2.53 (<5); CREATININE FOR GFR 0.94 MG/DL (0.55-1.30); FERRITIN 91.3 NG/ML (7.3-270.7); FREE T4 1.47 NG/DL (0.89-1.76); GLOMERULAR FILTRATION RATE > 60.0 (>32); GLUCOSE, FASTING 94 MG/DL (74-106); HDL CHOLESTEROL 84.7 MG/DL (>40); LDL CHOLESTEROL 118.5 MG/DL (<100); NON-HDL-C 130.3 MG/DL; POTASSIUM SERUM 3.8 MMOL/L (3.5-5.1); PTH INTACT 89.1 PG/ML (18.5-88.0); SODIUM LEVEL 142 MMOL/L (136-145); THYROID STIMULATING HORMONE 2.774 uIU/ML (0.55-4.78); TOTAL 25(OH) VITAMIN D 73.2 NG/ML (20.0-100.0); TRIGLYCERIDES LEVEL 59 MG/DL (<150)
[2024-08-25 06:48] LABS: ALPHA 1 GLOBULINS SO 0.3 g/dL (0.2-0.3); ALPHA 2 GLOBULINS SO 0.6 g/dL (0.5-0.9); BETA 2 GLOBULIN SO 0.3 g/dL (0.2-0.5); BETA GLOBULIN SO 0.4 g/dL (0.4-0.6); GAMMA GLOBULINS SO 1.5 g/dL (0.8-1.7); SPEP IFE ABN PROTEIN BAND 1 1.3 g/dL (NONE DETECTED)
== END ==
LOC: M WUC 10:08
PROVIDERS: ATTEND Family Medicine
DX: D47.2 Monoclonal gammopathy (principal); I50.32 Chronic diastolic (congestive) heart failure; E78.2 Mixed hyperlipidemia; K76.0 Fatty (change of) liver, not elsewhere classified; E55.9 Vitamin D deficiency, unspecified

== ENCOUNTER → 2024-12-22 | Outpatient (CLI) | payer MEDICARE, OTHER ==
[~2024-12-22] MED LIST changes: +COLA100C5 PO; -IBUP-1022 PO; +IBUP600T42 PO; -NYST-13 EXT; +NYST0.1C EXT; -PREG50CA PO; +PREG50CA87 PO
[2024-12-22 13:25] LABS: BASO % 0.8 % (0.0-1.0); EOS % 1.1 % (0.0-3.0); HEMOGLOBIN 12.6 g/dl (12.0-15.5); LYMPH # 0.9 10^3/uL (1.5-5.0); LYMPH % 33.5 % (24.0-44.0); MEAN CORPUSCULAR HEMOGLOBIN 30.9 pg (27.0-33.0); MEAN CORPUSCULAR HGB CONC 32.3 g/dl (32.0-36.5); MEAN CORPUSCULAR VOLUME 95.6 fl (80.0-96.0); MONO # 0.3 10^3/uL (0.0-0.8); MONO % 10.2 % (2.0-8.0); NEUTROPHILS # 1.5 10^3/uL (1.5-8.5); NEUTROPHILS % 54.4 % (36.0-66.0); PLATELET COUNT, AUTOMATED 162 10^3/uL (150-450); RED BLOOD COUNT 4.08 10^6/uL (4.00-5.40); WHITE BLOOD COUNT 2.7 10^3/uL (4.0-10.0)
[2024-12-22 13:34] LABS: ALBUMIN 3.6 G/DL (3.2-5.2); ALKALINE PHOSPHATASE 72 U/L (35-104); ALT/SGPT 14 U/L (7.0-40); AST/SGOT 28 U/L (<34); BILIRUBIN,TOTAL 0.5 MG/DL (0.3-1.2); BLOOD UREA NITROGEN 21 MG/DL (9-23); CALCIUM LEVEL 8.6 MG/DL (8.3-10.6); CARBON DIOXIDE LEVEL 30 MMOL/L (20-31); CHLORIDE LEVEL 106 MMOL/L (98-107); CREATININE FOR GFR 0.91 MG/DL (0.55-1.30); GLOMERULAR FILTRATION RATE 63.4 (>32); GLUCOSE, FASTING 91 MG/DL (74-106); POTASSIUM SERUM 4.3 MMOL/L (3.5-5.1); PTH INTACT 72.2 PG/ML (18.5-88.0); SODIUM LEVEL 142 MMOL/L (136-145); TOTAL PROTEIN 6.8 G/DL (5.7-8.2)
[2024-12-22 13:35] LABS: FERRITIN 76.7 NG/ML (7.3-270.7); FREE T4 1.34 NG/DL (0.89-1.76); THYROID STIMULATING HORMONE 2.847 uIU/ML (0.55-4.78)
[2024-12-22 13:36] LABS: TOTAL 25(OH) VITAMIN D 62.2 NG/ML (20.0-100.0)
[2024-12-22 13:38] LABS: VITAMIN B12 LEVEL > 2000 PG/ML (211-911)
[2024-12-25 14:28] LABS: FREE KAPPA LIGHT CHAINS SERUM 28.2 mg/L (3.3-19.4); KAPPA/LAMBDA RATIO SERUM 3.53 (0.26-1.65)
[2024-12-26 13:19] LABS: FREE KAPPA LIGHT CHAINS URINE 1.84 mg/L (<=32.90); FREE LAMBDA LIGHT CHAINS URINE 3.27 mg/L (<=3.79); KAPPA/LAMBDA RATIO URINE 0.56 (<=8.69)
== END ==
LOC: M WUC 09:04
PROVIDERS: ATTEND Family Medicine
DX: D47.2 Monoclonal gammopathy (principal); I50.32 Chronic diastolic (congestive) heart failure; E55.9 Vitamin D deficiency, unspecified; E03.9 Hypothyroidism, unspecified

== ENCOUNTER → 2025-05-15 | Outpatient (CLI) | payer MEDICARE, OTHER ==
[~2025-05-15] MED LIST changes: +DICL3GEL13 TOP; -DICL3GEL2 TOP
[2025-05-15 14:26] LABS: BASO # 0.0 10^3/uL (0.0-0.2); BASO % 0.6 % (0.0-1.0); EOS # 0.0 10^3/uL (0.0-0.5); EOS % 1.2 % (0.0-3.0); LYMPH # 1.0 10^3/uL (1.5-5.0); LYMPH % 31.1 % (24.0-44.0); MONO # 0.4 10^3/uL (0.0-0.8); MONO % 10.9 % (2.0-8.0); NEUTROPHILS # 1.9 10^3/uL (1.5-8.5); NEUTROPHILS % 56.2 % (36.0-66.0); PLATELET COUNT, AUTOMATED 200 10^3/uL (150-450)
[2025-05-15 15:18] LABS: FREE T4 1.25 NG/DL (0.89-1.76)
[2025-05-15 15:19] LABS: ALT/SGPT 16.0 U/L (7.0-40); AST/SGOT 25.0 U/L (<34); CALCIUM LEVEL 8.2 MG/DL (8.3-10.6); CARBON DIOXIDE LEVEL 32.0 MMOL/L (20-31); CHLORIDE LEVEL 103.0 MMOL/L (98-107); CHOLESTEROL LEVEL 228.0 MG/DL (<200); CHOLESTEROL RISK RATIO 3.0 (<5); CREATININE FOR GFR 0.96 MG/DL (0.55-1.30); GLOMERULAR FILTRATION RATE 59.1 (>32); LDL CHOLESTEROL 140.4 MG/DL (<100); MAGNESIUM LEVEL 2.1 MG/DL (1.8-2.4); NON-HDL-C 152.2 MG/DL; POTASSIUM SERUM 4.2 MMOL/L (3.5-5.1); SODIUM LEVEL 141.0 MMOL/L (136-145); TRIGLYCERIDES LEVEL 59.0 MG/DL (<150); VITAMIN B12 LEVEL 1032.0 PG/ML (211-911)
[2025-05-16 09:47] LABS: PROTEIN, TOTAL SO 7.0 g/dL (6.1-8.1)
== END ==
LOC: M WUC 10:09
PROVIDERS: ATTEND Family Medicine
DX: D47.2 Monoclonal gammopathy (principal); I50.32 Chronic diastolic (congestive) heart failure; E78.2 Mixed hyperlipidemia; K76.0 Fatty (change of) liver, not elsewhere classified

== ENCOUNTER → 2025-05-22 | Outpatient (REF) | payer MEDICARE, OTHER | LOC: M SFHCPLAZ 13:12 | PROVIDERS: ATTEND Family Medicine | DX: I50.32 Chronic diastolic (congestive) heart failure (principal); E78.2 Mixed hyperlipidemia; D47.2 Monoclonal gammopathy; E03.9 Hypothyroidism, unspecified; E55.9 Vitamin D deficiency, unspecified; Z53.9 Procedure and treatment not carried out, unspecified reason ==

== ENCOUNTER → 2025-06-25 | Outpatient (CLI) | payer MEDICARE, OTHER | LOC: M WHC 10:06 | DX: C50.919 Malignant neoplasm of unspecified site of unspecified female breast (principal); M85.851 Other specified disorders of bone density and structure, right thigh ==

== ENCOUNTER → 2025-06-26 | Outpatient (CLI) | payer MEDICARE, OTHER | LOC: M WHC 07:48 | PROVIDERS: ATTEND Family Medicine | DX: K74.00 Hepatic fibrosis, unspecified (principal) ==